=== PATIENT | female | born 1950 | race Caucasian/White ===

== ENCOUNTER 2016-05-19 10:19 | Observation (INO) ==
--- NOTE | 2016-05-19 11:19 | Emergency Department Note ---
Disposition Clinical Impression: Superior vena cava syndrome Disposition: Admitted As Inpatient Condition: Fair Referrals: Lew Carroll MD [Primary Care Provider] - Forms: ED Satisfaction Letter Time of Disposition: 15:38 SOB HPI - General Chief Complaint: ED Shortness of Breath/Dyspnea Stated Complaint: "Multiple complaints" Time Seen by Provider: 05/19/16 10:25 Source: patient Mode of arrival: ambulatory Limitations: no limitations Nursing Notes Reviewed: Yes Vital Signs Reviewed: Yes - History of Present Illness 65-year-old with stage IV small cell carcinoma lung comes in with increasing peripheral edema to her hands. Constipation. Context: recent travel - Related Data Home Medications Medication Instructions Recorded Confirmed Aspirin/Calcium Carbonate/Mag 325 mg PO DAILY 03/20/16 04/29/16 [Aspirin Buffered 325 mg Tab] Lisinopril [Zestril] 10 mg PO DAILY 03/20/16 04/29/16 Previous Rx's Medication Instructions Recorded Loperamide [Imodium] 2 cap PO AD #30 capsule 03/27/16 Magic Mouthwash 5 ml PO Q4H PRN #240 ml 03/27/16 Albuterol Sulfate [Albuterol 1 - 2 puff IH Q4H #1 inhaler 04/19/16 Inhaler] Bumetanide [Bumex] 0.5 mg PO DAILY #15 tablet 04/19/16 LORazepam [Ativan] 1 tab PO BID PRN #60 tablet 04/19/16 Ondansetron HCl [Zofran] 4 mg PO Q6HR PRN #20 tablet 04/19/16 Potassium Chloride 20 meq PO DAILY #30 tab.er.prt 04/19/16 Prochlorperazine Maleate 10 mg PO Q6HR PRN #30 tablet 04/19/16 [Compazine] TraZODone 50 mg PO HS #30 tablet 04/19/16 Zolpidem [Ambien] 5 mg PO HS PRN #30 tablet 04/19/16 Dexamethasone [Decadron] 1 tab PO BID #30 tablet 04/26/16 Acetaminophen [Tylenol] 1,000 mg PO Q6HR PRN #120 tablet 05/03/16 Ibuprofen [Motrin] 600 mg PO Q8HR PRN #90 tablet 05/03/16 Oxycodone HCl 5 mg PO Q6H PRN #20 capsule 05/03/16 Polyethylene Glycol 3350 [MiraLAX] 17 gm PO DAILY #30 powd.pack 05/03/16 Sennosides/Docusate Sodium [Senna 2 each PO BID #120 tablet 05/03/16 Plus] Na Phos,M-B/Na Phos,Di-Ba [Fleet 230 ml RC ONCE #1 enema 05/09/16 Enema Extra] Allergies Allergy/AdvReac Type Severity Reaction Status Date / Time Bee Pollen Allergy Anaphylaxis Verified 05/19/16 10:25 "some of these antibiotics." Allergy Anaphylaxis Uncoded 04/29/16 21:17 Past Medical History - Past Medical History Medical history: Reports: arthritis, asthma, cancer, COPD, diabetes, GERD, hyperlipidemia, hypertension, other Surgical history: Reports: , hysterectomy Psychiatric history: Reports: anxiety [employer] history: Reports: no [employer] history - Social History Smoking Status: Former smoker Smokeless Tobacco Status: No Alcohol use: Reports: none Drug use: Reports: none Physical Exam - General General appearance: alert Course - Consultations Consultation #1: Discussed with , admit. Time: 15:05 Consultation #2: Discussed with , admit. Time: 15:38 Vital Signs Temperature 98.4 F 05/19/16 10:20 Pulse Rate 107 05/19/16 10:20 Respiratory Rate 20 05/19/16 10:20 Blood Pressure 159/77 05/19/16 10:20 O2 Sat by Pulse Oximetry 98 05/19/16 10:20 Temperature 98.4 F 05/19/16 10:20 Pulse Rate 97 05/19/16 15:01 Respiratory Rate 16 05/19/16 15:01 Blood Pressure 133/73 05/19/16 15:01 O2 Sat by Pulse Oximetry 99 05/19/16 15:01 Oxygen Delivery Oxygen Delivery Nasal Cannula Shortness of Breath/Dyspnea - Lab Data Lab results reviewed: Yes I reviewed the patient's lab results. Result diagrams: 05/19/16 11:21 05/19/16 11:21 Lab Results 05/19/16 05/19/16 Range/Units 11:21 11:21 WBC 73.8 H* D (4.3-11.1) K/mcL RBC 3.25 L (3.82-4.97) M/mcL Hgb 9.7 L (11.5-15.4) g/dL Hct 29.5 L (35.3-44.9) % MCV 90.8 (83.0-100.0) fL MCH 29.8 (28.0-33.3) pg MCHC 32.9 (31.6-35.5) g/dL RDW 15.8 H (11.5-14.5) % Plt Count 403 H (140-400) K/mcL MPV 9.1 L (9.4-12.4) fL Immature Gran % Test Not Performed Seg Neutrophils % 88.0 % Band Neutrophils % 8.0 H (0-4) % Lymphocytes % 2.0 % Monocytes % 2.0 % Eosinophils % Test Not Performed Basophils % Test Not Performed Neutrophils # 70.9 H (1.6-8.9) K/mcL Lymphocytes # 1.5 (0.6-4.6) K/mcL Monocytes # 1.5 H (0.0-1.3) K/mcL Eosinophils # Test Not Performed Basophils # Test Not Performed Smudge Cells Present A (Not Present) Platelet Estimate Increased H (Normal) Sodium 139 (136-145) mEq/L Potassium 3.6 (3.5-4.5) mEq/L Chloride 96 L (98-109) mEq/L Carbon Dioxide 34 H (19-29) mEq/L BUN 19 (7-20) mg/dL Creatinine 0.57 (0.57-1.11) mg/dL Est GFR ( Amer) > 60 (> 60) Est GFR (Non-Af Amer) > 60 (> 60) BUN/Creatinine Ratio 33 H (6-26) Glucose 96 (70-99) mg/dL Calculated Osmolality 290 (280-300) Calcium 9.3 (8.6-10.8) mg/dL Total Bilirubin 0.5 (0.2-1.2) mg/dL Direct Bilirubin 0.2 (0.0-0.5) mg/dL Indirect Bilirubin 0.3 (0.0-1.2) mg/dL AST 16 (5-34) Units/L ALT 27 (0-55) Units/L Alkaline Phosphatase 130 H (38-126) Units/L Serum Total Protein 5.6 L (6.0-8.3) g/dL Albumin 2.7 L (3.5-5.0) g/dL Globulin 2.9 (2.4-3.5) g/dL Albumin/Globulin Ratio 0.9 L (1.1-2.2) Amylase 33 (25-125) Units/L Lipase 10 (8-78) Units/L - Radiology Data Radiology results reviewed: Yes I reviewed the patient's radiology results. Abdomen/Pelvis CT 05/19/16 11:14 IMPRESSION: 1. Unchanged mild rectal distention filled with stool can be seen in the setting of fecal impaction. 2. New small right pleural effusion. 3. Unchanged 3.2 cm indeterminate left adrenal mass concerning for metastasis 4. Unchanged right retrocrural farideh metastases 5. Unchanged bilateral breast skin thickening; correlate with direct inspection and mammography. D/ / Vargas Goncalves MD / Vargas Goncalves MD Interpreting Provider: Vargas Goncalves MD Head CT 05/19/16 11:14 IMPRESSION: 1. No definite acute intracranial abnormality. 2. A few nonspecific foci of hypoattenuation are seen within the supratentorial white matter, which could represent early chronic microvascular ischemic change. D/ / Michael Dye MD / Michael Dye MD Interpreting Provider: Michael Dye MD
[2016-05-19 11:29] LABS: Red Cell Distribution Width 15.8 % (11.5-14.5)
[2016-05-19 11:31] LABS: Hematocrit 29.5 % (35.3-44.9); Hemoglobin 9.7 g/dL (11.5-15.4); Mean Corpuscular HGB Conc 32.9 g/dL (31.6-35.5); Mean Corpuscular Hemoglobin 29.8 pg (28.0-33.3); Mean Corpuscular Volume 90.8 fL (83.0-100.0); Mean Platelet Volume 9.1 fL (9.4-12.4); Platelet Count 403 K/mcL (140-400); Red Blood Count 3.25 M/mcL (3.82-4.97)
[2016-05-19 11:41] LABS: Alanine Aminotransferase 27 Units/L (0-55); Albumin 2.7 g/dL (3.5-5.0); Albumin/Globulin Ratio 0.9 (1.1-2.2); Alkaline Phosphatase 130 Units/L (38-126); Amylase 33 Units/L (25-125); Aspartate Amino Transferase 16 Units/L (5-34); BUN/Creatinine Ratio 33 (6-26); Bilirubin,Direct 0.2 mg/dL (0.0-0.5); Bilirubin,Indirect 0.3 mg/dL (0.0-1.2); Bilirubin,Total 0.5 mg/dL (0.2-1.2); Blood Urea Nitrogen 19 mg/dL (7-20); Calcium 9.3 mg/dL (8.6-10.8); Carbon Dioxide 34 mEq/L (19-29); Chloride 96 mEq/L (98-109); Globulin 2.9 g/dL (2.4-3.5); Glucose 96 mg/dL (70-99); Lipase 10 Units/L (8-78); Osmolality,Calculated 290 (280-300); Potassium 3.6 mEq/L (3.5-4.5); Sodium 139 mEq/L (136-145); Total Protein 5.6 g/dL (6.0-8.3); eGFR For African Americans > 60 (> 60); eGFR For Non-African Americans > 60 (> 60)
[2016-05-19 11:55] LABS: Lymphocytes # 1.5 K/mcL (0.6-4.6); Monocytes # 1.5 K/mcL (0.0-1.3); Neutrophils # 70.9 K/mcL (1.6-8.9); Platelet Estimate Increased (Normal); Smudge Cells Present (Not Present)
[2016-05-19] MEDS ORDERED: Ondansetron 4 MG/2 ML VIAL IVP PRN (16:10)
[2016-05-19] MEDS ORDERED: Naloxone 0.4 MG/ML INJ IVP PRN (16:10)
[2016-05-19] MEDS ORDERED: Magic Mouthwash 10 ML UD Cup PO PRN (16:13)
[2016-05-19] MEDS ORDERED: *HR* Enoxaparin 40 MG/0.4 ML SYRINGE SQ ONE (16:16)
[2016-05-19] MEDS ORDERED: *HR* Dextrose 50 % in Water (Syg) 50 ML SYRINGE IVP PRN (16:40)
[2016-05-19] MEDS ORDERED: Dextrose Gel 15 GM PO PRN ×2 (16:40)
[2016-05-19] MEDS ORDERED: D5% in Water 1,000 ML IV PRN (16:40)
--- NOTE | 2016-05-19 16:42 | Internal Med History&Physical ---
Date of Encounter: 05/19/16 Time of Encounter: 16:00 Assessment and Plan (1) Superior vena cava syndrome Current visit: Yes Status: Acute Chronic, with acute exacerbation Based on chronicity, and no respiratory symptoms, patient already on steroids It is unlikely patient will need surgical intervention now However, will consult oncology for further recommendations (2) Anxiety Current visit: Yes Status: Chronic Resume home meds (3) Cancer associated pain Current visit: Yes Status: Chronic Resume home meds (4) Depression Current visit: Yes Status: Chronic Qualifiers: Depression Type: unspecified Qualified Code(s): F32.9 - Major depressive disorder, single episode, unspecified (5) Pleural effusion, right Current visit: Yes Status: Chronic Has pleuravac For drainage at least thrice weekly patient and spouse need to be educated prior to discharge as to how to drain poleuravac at home Continue supplemental O2 (6) Small cell carcinoma of right lung Current visit: Yes Status: Chronic (7) Type 2 diabetes mellitus Current visit: Yes Status: Chronic SSI, monitor FS Qualifiers: Diabetes mellitus complication status: with unspecified complications Diabetes mellitus intermediate insulin use: with rat 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 use Qualified Code(s) : E11.8 - Type 2 diabetes mellitus with unspecified complications; Z79.4 - medical terminologist (current) use of insulin (8) Fecal impaction Current visit: Yes Status: Acute s/p enema Resume Colace, miralax Add senna (9) Anemia Current visit: Yes Status: Chronic Qualifiers: Anemia type: unspecified type Qualified Code(s): D64.9 - Anemia, unspecified Internal Medicine - H&P: HPI Chief complaint: Shortness of breath, constipation Admitted From: Home Plans for Post Hospital Care: Home History of present illness: Ms. Guzman is a 65 year old female with Stage IV Small cell Lung CA with malignant pleural effusion s/p pleuravac, Chronic respiratory failure on home oxygen, L adrenal mets and SVC syndrome. She also has a PMH of DM, HTN, COPD, HLD She presents to ER in company of her fiancee and POA with multiple complains viz Shortness of breath since due to no VNS to help drain her Right pleuravac since . She denies cough, chest pain, increasing oxygen requirements. She also complains of Constipation for 8 days, no abdominal pain or distension, she is passing flatus, no change in appetite. She was wondering if her cancer has been treated enough to now have lung surgery. She is also anxious the cancer may have spread to her brain She denies worsening or new pain, she denies dizziness, new back pain or difficulty walking. She reports frequent falls recently. Last chemo and filgastrim was this week, she denies nausea or vomiting. She has POA who is at the bedside at the time of this review, alternate POA who is her sister and a living will. She reports she is DNR/DNI. She doesn't want chest compressions, or intubation. Partner will bring in her papers as soon as is feasible Past Med Surg Social Fam HX - Past Medical History Medical history: arthritis, asthma, cancer, COPD, diabetes, GERD, hyperlipidemia , hypertension, other Psychiatric history: anxiety - Past Surgical History Surgical History: , hysterectomy - Social History Smoking Status: Former smoker Smokeless Tobacco Status: No Alcohol use: none Drug use: none - Family History Mother Adopted: No Family Member Ethnicity: Non- Living Status: Hx Family Cardiac Disorders: No Hx Family Respiratory Disorders: No Hx Family Cancer: No Hx Family GI Disorders: No Hx Family Endocrine Disorder: No Hx Family Neuromuscular Disorders: No Hx Family Neurologic Disorders: No Hx Family HEENT Disorders: No Hx Family Autoimmune Disorders: No Internal Medicine - H&P: Meds Aspirin/Calcium Carbonate/Mag [Aspirin Buffered 325 mg Tab] 325 mg PO DAILY 01/25 [History] Lisinopril [Zestril] 10 mg PO DAILY 03/20/16 [History] Magic Mouthwash 5 ml PO Q4H PRN #240 ml 03/27/16 [Rx] Bumetanide [Bumex] 0.5 mg PO DAILY #15 tablet 04/19/16 [Rx] LORazepam [Ativan] 1 tab PO BID PRN #60 tablet 04/19/16 [Rx] Ondansetron HCl [Zofran] 4 mg PO Q6HR PRN #20 tablet 04/19/16 [Rx] Potassium Chloride 20 meq PO DAILY #30 tab.er.prt 04/19/16 [Rx] Prochlorperazine Maleate [Compazine] 10 mg PO Q6HR PRN #30 tablet 04/19/16 [Rx] TraZODone 50 mg PO HS #30 tablet 04/19/16 [Rx] Zolpidem [Ambien] 5 mg PO HS PRN #30 tablet 04/19/16 [Rx] Dexamethasone [Decadron] 1 tab PO BID #30 tablet 04/26/16 [Rx] Acetaminophen [Tylenol] 1,000 mg PO Q6HR PRN #120 tablet 05/03/16 [Rx] Ibuprofen [Motrin] 600 mg PO Q8HR PRN #90 tablet 05/03/16 [Rx] Oxycodone HCl 5 mg PO Q6H PRN #20 capsule 05/03/16 [Rx] Polyethylene Glycol 3350 [MiraLAX] 17 gm PO DAILY #30 powd.pack 05/03/16 [Rx] Na Phos,M-B/Na Phos,Di-Ba [Fleet Enema Extra] 230 ml RC ONCE #1 enema 05/09/16 [ Rx] Albuterol Sulfate [Albuterol Inhaler] 2 puff IH Q4H PRN 05/19/16 [History] Oxygen 2 l .ROUTE AD 05/19/16 [History] Allergies Bee Pollen Allergy (Verified 05/19/16 10:25) Anaphylaxis Penicillins Allergy (Verified 05/19/16 15:52) Hives All Systems PM: A 10-system review of systems was performed and is negative for pertinent findings except as documented above in the HPI. - Constitutional Constitutional: as per HPI - EENT Eyes: as per HPI Ears: as per HPI Nose, mouth and throat: as per HPI - Cardiovascular Cardiovascular ROS IM: as per HPI - Respiratory Respiratory: as per HPI - Gastrointestinal Gastrointestinal: as per HPI - Genitourinary Genitourinary: as per HPI - Musculoskeletal Musculoskeletal ROS IM: as per HPI - Integumentary Integumentary IM: as per HPI - Neurological Neurological ROS: as per HPI, no confusion, no convulsions, no focal weakness, no numbness, no tingling, no tremor(s) - Psychiatric Psychiatric: as per HPI - Hematologic/Lymphatic Hematologic/Lymphatic: as per HPI - Constitutional Vitals: Temp Pulse Resp BP Pulse Ox 98 F 98 16 137/69 95 05/19/16 16:29 05/19/16 16:29 05/19/16 16:29 05/19/16 16:29 05/19/16 16:29 General appearance: Present: A&O X 3, pleasant, no acute distress - Head Additional comments: Alopecia - Eye Eye exam: Present: PERRL, conjuntiva pink, sclera anicteric - ENT ENT exam: Present: mucous membranes moist - Neck Neck exam general surgery: Present: normal inspection - Respiratory Additional comments: Right lung with diminished breath sounds, chest wall veins distended. Left upper - Cardiovascular Cardiovascular exam: Present: RRR, +S1, +S2. Absent: rubs, systolic murmur, tachycardia - GI/Abdominal GI/Abdominal exam: Present: normal bowel sounds, soft, no peritoneal signs. Absent: mass, tenderness - Extremities Exam Additional comments: Left upper extremity pittin edema from left hand to upper arm, right upper extremity with mild swelling, not pitting. - Neurological Exam Neurological exam: Present: CN II-XII intact, oriented X3, no focal deficits. Absent: pronater drift, facial droop, speech deficit - Skin Skin exam: Present: dry, intact Internal Med - H&P Results - Labs CBC & Chem 7: 05/19/16 11:21 05/19/16 11:21
[2016-05-19] MEDS: *HR* OxyCODONE Immed Rel 5 MG TABLET PO PRN (16:56)
[2016-05-19] MEDS: Sennosides 8.6 MG TABLET PO SCH (20:38)
[2016-05-19] MEDS: traZODone 50 MG TABLET PO SCH (20:39)
[2016-05-19] MEDS: Insulin LISPRO 300 UNITS/3 ML VIAL SQ SCH (21:47)
[2016-05-20] MEDS: *HR* OxyCODONE Immed Rel 5 MG TABLET PO PRN ×3 (02:42→17:56)
[2016-05-20 03:31] LABS: Hematocrit 31.4 % (35.3-44.9); Hemoglobin 10.2 g/dL (11.5-15.4); Mean Corpuscular HGB Conc 32.5 g/dL (31.6-35.5); Mean Corpuscular Hemoglobin 29.6 pg (28.0-33.3); Mean Platelet Volume 9.3 fL (9.4-12.4); Platelet Count 436 K/mcL (140-400); Red Blood Count 3.45 M/mcL (3.82-4.97); Red Cell Distribution Width 15.7 % (11.5-14.5)
[2016-05-20 03:42] LABS: BUN/Creatinine Ratio 23 (6-26); Blood Urea Nitrogen 15 mg/dL (7-20); Calcium 9.3 mg/dL (8.6-10.8); Carbon Dioxide 32 mEq/L (19-29); Chloride 96 mEq/L (98-109); Glucose 164 mg/dL (70-99); Osmolality,Calculated 292 (280-300); Potassium 3.5 mEq/L (3.5-4.5); Sodium 139 mEq/L (136-145); eGFR For African Americans > 60 (> 60); eGFR For Non-African Americans > 60 (> 60)
[2016-05-20 03:48] LABS: Lymphocytes # 2.8 K/mcL (0.6-4.6); Monocytes # 1.4 K/mcL (0.0-1.3); Neutrophils # 65.7 K/mcL (1.6-8.9)
[2016-05-20 03:49] LABS: Platelet Estimate Increased (Normal); Reactive Lymphocytes Present (Not Present)
[2016-05-20] MEDS: *HR* Enoxaparin 40 MG/0.4 ML SYRINGE SQ SCH (05:03)
[2016-05-20] MEDS: *HR* LORazepam 1 MG TABLET PO PRN (06:26)
--- NOTE | 2016-05-20 08:09 | Oncology Inp Consult Note ---
Date of Encounter: 05/20/16 Time of Encounter: 07:41 - Data of Consult Patient: known to practice within the last 3 years Consult date: 05/20/16 Requesting Physician: Jose Manuel Phillip Primary Care Provider: Lew Carroll MD - Consult Narrative Reason for consult: Extensive stage small cell lung cancer. History of present illness: Ms. Guzman is a 65 year old woman who is known to oncology from ongoing management of extensive stage small cell lung cancer. She is followed by my partner Dr. Mart Kinney and was last seen in the office 04/22/16. I have summarized patient's heme/onc background below based on Dr. Kinney's most recent office report. History present illness Progressive shortness of breath for last 3 months. She developed hemoptysis and failed outpatient antibiotics. Was hospitalized 03/20/2016. CT angiogram chest 03/20/2016 showed a 7 x 9.4 x 9.6 cm and atelectasis of right upper lobe. Supraclavicular lymph node 1.7 cm and right paratracheal lymph node 2.2 cm. large right pleural effusion and she had a thoracentesis on 03/21/2016 400 mL effusion fluid drained It did show malignant cells Ki-67 more than 70% of eyes and focally positive She was intubated because of acute respiratory failure. Bronchoscopy 2015 showed atelectasis in the right upper lobe Endobronchial infiltrative ulcerated mass in the right upper lobe Bronchoscopy biopsy of the right upper lobe, subcarinal lymph node and right hilar mass while showed small cell carcinoma. Synaptophysin TTF-1 positive. OscarFocally positive. Ki-67 more than 70%. CK 7 and CK 5 and 6-negative After extubation she was on BiPAP till discharge. She was discharged to [facility] because of the BiPAP requirement X line currently she is able to breathe well with oxygen by nasal cannula which she does not need all the time First cycle of chemotherapy was given on an emergency basis as an inpatient. Cisplatin 60 mg/m day 1, etoposide 60 mg/m day one and 2 and 03/28/2016. When she tolerated it well. Uric acid low at 1.8. Renal function normal She is mildly neutropenic neutrophil count around 1000 on 04/14/2016. From cycle 2 will change etoposide to 3 days and give Neulasta day 4. Cycle 2 on 04/22/2016. Cisplatin 60 mg/m and etoposide increased to 80 mg/m. She finished etoposide and 1 cisplatin started she noticed increased shortness of breath We will complete staging with a CT abdomen and pelvis with contrast. Left adrenal showed 2.8 cm cyst with walker attenuation which could be benign Also MRI brain with and without contrast She has also been evaluated by Dr. Ellison radiation oncology and his most recent report can be reviewed from 05/08/16. Patient is currently hospitalized for generalized, multisystem symptoms including worsening right upper extremity swelling concerning for SVC syndrome based on most recent scan, severe anxiety with failure to thrive at home, cancer associated pain, constipation with fecal impaction. Oncology is consulted re: patient's underlying lung cancer. Patient seen and examined at bedside. She had reviewed for details of ongoing care I hospital team. Dr. Hadley with [facility] was kind enough to discuss patients visit me at time of initial presentation. I also spoken with her through the answering service. Rest of past medical, surgical, family, social history detailed below and verified with patient today. Review of systems: 12 point review of systems performed with patient and positive findings noted in history of present illness. All other systems are negative: Physical exam: Vital Signs Temp 98 F 05/19/16 16:29 Pulse 97 05/20/16 06:06 Resp 18 05/20/16 06:06 BP 146/90 05/20/16 06:06 Pulse Ox 97 05/20/16 06:06 GENERAL: * Alert and oriented, anxious appearing. * Mental Status: Affect appropriate for circumstances HEENT: * Sclerae anicteric. No mucositis or thrush. * No other oral or pharyngeal lesions or erythema. Skin: * No rashes or petechiae. * No evidence of skin malignancy Lymph nodes: * No cervical, supraclavicular, axillary, or inguinal adenopathy. Lungs: * Clear to auscultation bilaterally. * Clear to percussion bilaterally. Cardiovascular: * Regular rate and rhythm. * No gallops, murmurs, or rubs. Abdomen: * Soft, nontender; * No organomegaly or masses palpable. Extremities: * I do not appreciate any asymmetry between upper extremities on my exam. She evidently presented with a symmetrical left upper extremity edema. * No edema. No calf swelling or tenderness. * No joint deformity. Neurologic: * Alert, * normal gait; * no focal weakness or sensory abnormalities. Results: Laboratory Last Values WBC 69.9 K/mcL (4.3-11.1) H* 05/20/16 03:10 RBC 3.45 M/mcL (3.82-4.97) L 05/20/16 03:10 Hgb 10.2 g/dL (11.5-15.4) L 05/20/16 03:10 Hct 31.4 % (35.3-44.9) L 05/20/16 03:10 MCV 91.0 fL (83.0-100.0) 05/20/16 03:10 MCH 29.6 pg (28.0-33.3) 05/20/16 03:10 MCHC 32.5 g/dL (31.6-35.5) 05/20/16 03:10 RDW 15.7 % (11.5-14.5) H 05/20/16 03:10 Plt Count 436 K/mcL (140-400) H 05/20/16 03:10 MPV 9.3 fL (9.4-12.4) L 05/20/16 03:10 Immature Gran % Test Not Performed 05/19/16 11:21 Seg Neutrophils % 92.0 % 05/20/16 03:10 Band Neutrophils % 2.0 % (0-4) 05/20/16 03:10 Lymphocytes % 4.0 % 05/20/16 03:10 Monocytes % 2.0 % 05/20/16 03:10 Eosinophils % Test Not Performed 05/19/16 11:21 Basophils % Test Not Performed 05/19/16 11:21 Neutrophils # 65.7 K/mcL (1.6-8.9) H 05/20/16 03:10 Lymphocytes # 2.8 K/mcL (0.6-4.6) 05/20/16 03:10 Monocytes # 1.4 K/mcL (0.0-1.3) H 05/20/16 03:10 Eosinophils # Test Not Performed 05/19/16 11:21 Basophils # Test Not Performed 05/19/16 11:21 Reactive Lymphocytes Present (Not Present) A 05/20/16 03:10 Smudge Cells Present (Not Present) A 05/19/16 11:21 Platelet Estimate Increased (Normal) H 05/20/16 03:10 Immature Plt Fraction 3.0 % (1.1-6.1) 05/20/16 03:10 Sodium 139 mEq/L (136-145) 05/20/16 03:10 Potassium 3.5 mEq/L (3.5-4.5) 05/20/16 03:10 Chloride 96 mEq/L (98-109) L 05/20/16 03:10 Carbon Dioxide 32 mEq/L (19-29) H 05/20/16 03:10 BUN 15 mg/dL (7-20) 05/20/16 03:10 Creatinine 0.65 mg/dL (0.57-1.11) 05/20/16 03:10 Est GFR ( Amer) > 60 (> 60) 05/20/16 03:10 Est GFR (Non-Af Amer) > 60 (> 60) 05/20/16 03:10 BUN/Creatinine Ratio 23 (6-26) 05/20/16 03:10 Glucose 164 mg/dL (70-99) H 05/20/16 03:10 POC Glucose 117 (58-89) H 05/19/16 21:44 Calculated Osmolality 292 (280-300) 05/20/16 03:10 Calcium 9.3 mg/dL (8.6-10.8) 05/20/16 03:10 Total Bilirubin 0.5 mg/dL (0.2-1.2) 05/19/16 11:21 Direct Bilirubin 0.2 mg/dL (0.0-0.5) 05/19/16 11:21 Indirect Bilirubin 0.3 mg/dL (0.0-1.2) 05/19/16 11:21 AST 16 Units/L (5-34) 05/19/16 11:21 ALT 27 Units/L (0-55) 05/19/16 11:21 Alkaline Phosphatase 130 Units/L (38-126) H 05/19/16 11:21 Serum Total Protein 5.6 g/dL (6.0-8.3) L 05/19/16 11:21 Albumin 2.7 g/dL (3.5-5.0) L 05/19/16 11:21 Globulin 2.9 g/dL (2.4-3.5) 05/19/16 11:21 Albumin/Globulin Ratio 0.9 (1.1-2.2) L 05/19/16 11:21 Amylase 33 Units/L (25-125) 05/19/16 11:21 Lipase 10 Units/L (8-78) 05/19/16 11:21 Radiographic studies: I personally reviewed and interpreted patient's most recent imaging studies dated 05/19/16. I discussed the findings with the patient today. Abdomen/Pelvis CT 05/19/16 11:14 IMPRESSION: 1. Unchanged mild rectal distention filled with stool can be seen in the setting of fecal impaction. 2. New small right pleural effusion. 3. Unchanged 3.2 cm indeterminate left adrenal mass concerning for metastasis 4. Unchanged right retrocrural farideh metastases 5. Unchanged bilateral breast skin thickening; correlate with direct inspection and mammography. D/ / Vargas Goncalves MD / Vargas Goncalves MD Interpreting Provider: Vargas Goncalves MD Head CT 05/19/16 11:14 IMPRESSION: 1. No definite acute intracranial abnormality. 2. A few nonspecific foci of hypoattenuation are seen within the supratentorial white matter, which could represent early chronic microvascular ischemic change. D/ / Michael Dye MD / Michael Dye MD Interpreting Provider: Michael Dye MD Chest CT 05/19/16 13:53 IMPRESSION: Large infiltrative mass in the right perihilar region extending into superior mediastinum with significant stenosis of the SVC. The SVC stenosis appears similar to the prior examination, however functionally it may be worsened due to the presence of the port catheter. Overall, size of the mass is unchanged from prior examination. Additional mediastinal and neck nodes are compatible with metastatic disease, unchanged. Pleural nodularity in the right hemithorax, compatible with metastatic disease, unchanged. Small moderate right pleural effusion with chest tube in place. Left adrenal nodule, concerning for metastatic disease. Findings were discussed with Dr. Isidoro Hadley at 3:01 pm on 05/19/2016. D/ / Kian Covarrubias MD / Kian Covarrubias MD Interpreting Provider: Kian Covarrubias MD Impression/recommendations: Extensive stage small cell lung cancer: Completed 2 cycles of combination chemotherapy. Most recent scan is compatible with treatment response compared to scan from 03/20/16 and at initial diagnosis. She is encouraged ongoing response to treatment and wants to continue treatment if possible. Suspected SVC syndrome: On my independent review of her scans, I do not appreciate any major difference between I do not appreciate any significant difference versus CT angiogram from 04/22/16. She had distended vessels back pain as well with extensive collateralization. Admittedly, [id number] is new since previous scan. Given the apparent improvement in upper extremity swelling based on my exam today cannot treat her presentation yesterday was on the basis of SVC syndrome. It is lingering concern about SVC syndrome, it may be worthwhile to obtain bilateral upper extremity Doppler for further evaluation. Repeat CT angiogram will directly compare her current scans to scan from . I agree with documentation by Dr. Daley that there is no indication for surgical intervention at this time. Additionally, risk for thrombosis appears minimal less as a catheter-related clot. No indication for additional tumor prophylaxis beyond routine DVT prophylaxis for hospitalization Severe anxiety: She is on when necessary Ativan in addition to her home dose of trazodone. Recommend increasing trazodone dose for optimal symptom control. Constipation with fecal impaction: Likely due to appears that she is taking for cancer associated pain. If conservation remains an issue despite ongoing measures, consider Relistor for opioid-induced constipation. We'll follow the patient along side you during this hospitalization but please do not hesitate to call regarding interval hematologic questions as they arise. Thank you for your excellent ongoing care for allowing us to see her while in- house. This report was created using voice recognition software and may contain errors. It was signed but not edited to expedite communication. Past Med Surg Social Fam HX - Past Medical History Medical history: arthritis, asthma, cancer, COPD, diabetes, GERD, hyperlipidemia , hypertension, other Psychiatric history: anxiety - Past Surgical History Surgical History: , hysterectomy - Social History Smoking Status: Former smoker Smokeless Tobacco Status: No Alcohol use: none Drug use: none - Family History Mother Adopted: No Family Member Ethnicity: Non- Living Status: Hx Family Cardiac Disorders: No Hx Family Respiratory Disorders: No Hx Family Cancer: No Hx Family GI Disorders: No Hx Family Endocrine Disorder: No Hx Family Neuromuscular Disorders: No Hx Family Neurologic Disorders: No Hx Family HEENT Disorders: No Hx Family Autoimmune Disorders: No Medications and Allergies Aspirin/Calcium Carbonate/Mag [Aspirin Buffered 325 mg Tab] 325 mg PO DAILY 01/25 [History] Lisinopril [Zestril] 10 mg PO DAILY 03/20/16 [History] Magic Mouthwash 5 ml PO Q4H PRN #240 ml 03/27/16 [Rx] Bumetanide [Bumex] 0.5 mg PO DAILY #15 tablet 04/19/16 [Rx] LORazepam [Ativan] 1 tab PO BID PRN #60 tablet 04/19/16 [Rx] Ondansetron HCl [Zofran] 4 mg PO Q6HR PRN #20 tablet 04/19/16 [Rx] Potassium Chloride 20 meq PO DAILY #30 tab.er.prt 04/19/16 [Rx] Prochlorperazine Maleate [Compazine] 10 mg PO Q6HR PRN #30 tablet 04/19/16 [Rx] TraZODone 50 mg PO HS #30 tablet 04/19/16 [Rx] Zolpidem [Ambien] 5 mg PO HS PRN #30 tablet 04/19/16 [Rx] Dexamethasone [Decadron] 1 tab PO BID #30 tablet 04/26/16 [Rx] Acetaminophen [Tylenol] 1,000 mg PO Q6HR PRN #120 tablet 05/03/16 [Rx] Ibuprofen [Motrin] 600 mg PO Q8HR PRN #90 tablet 05/03/16 [Rx] Oxycodone HCl 5 mg PO Q6H PRN #20 capsule 05/03/16 [Rx] Polyethylene Glycol 3350 [MiraLAX] 17 gm PO DAILY #30 powd.pack 05/03/16 [Rx] Na Phos,M-B/Na Phos,Di-Ba [Fleet Enema Extra] 230 ml RC ONCE #1 enema 05/09/16 [ Rx] Albuterol Sulfate [Albuterol Inhaler] 2 puff IH Q4H PRN 05/19/16 [History] Oxygen 2 l .ROUTE AD 05/19/16 [History] Allergies Bee Pollen Allergy (Verified 05/19/16 10:25) Anaphylaxis Penicillins Allergy (Verified 05/19/16 15:52) Hives Oncology - Exam - Constitutional Vitals: Temp Pulse Resp BP Pulse Ox 98 F 97 18 146/90 97 05/19/16 16:29 05/20/16 06:06 05/20/16 06:06 05/20/16 06:06 05/20/16 06:06 Oncology - Results - Labs Labs: Short CBC 05/20/16 Range/Units 03:10 WBC 69.9 H* (4.3-11.1) K/mcL Hgb 10.2 L (11.5-15.4) g/dL Hct 31.4 L (35.3-44.9) % Plt Count 436 H (140-400) K/mcL Neutrophils # 65.7 H (1.6-8.9) K/mcL BMP 05/20/16 03:10 Sodium 139 Potassium 3.5 Chloride 96 L Carbon Dioxide 32 H BUN 15 Creatinine 0.65 Glucose 164 H Calcium 9.3 Consult Discharge Plan - Plan Referrals: Lew Carroll MD [Primary Care Provider] -
[2016-05-20] MEDS: Bumetanide 1 MG TABLET PO SCH (09:14)
[2016-05-20] MEDS: Insulin LISPRO 300 UNITS/3 ML VIAL SQ SCH ×4 (09:17→21:49)
--- NOTE | 2016-05-20 10:00 | Internal Med Progress Note ---
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 Per oncology no indication for additional tumor prophylaxis beyond routine DVT prophylaxis for hospitalization (2) Fecal impaction Current Visit: Yes Status: Acute Assessment and plan: Continues to have no bowel movement, however is with flatus Add Mild and Molasses enema and Relistor started (3) Anxiety Current Visit: Yes Status: Chronic Assessment and plan: Ativan prn in addition to home dose of trazodone (4) Cancer associated pain Current Visit: Yes Status: Chronic Assessment and plan: Continue with pain control (5) Depression Current Visit: Yes Status: Chronic Assessment and plan: Consult to pastoral services ordered Qualifiers: Depression Type: unspecified Qualified Code(s): F32.9 - Major depressive disorder, single episode, unspecified (6) Pleural effusion, right Current Visit: Yes Status: Chronic Assessment and plan: Has pleuravac for drainage Pt and spouse need to be educated prior to discharge as to how to drain pleuravac at home Continue supplemental O2 (7) Small cell carcinoma of right lung Current Visit: Yes Status: Chronic Assessment and plan: Management by [facility] Oncology consulted for recommendations (8) Type 2 diabetes mellitus Current Visit: Yes Status: Chronic Assessment and plan: SSI during hospital stay Continue to monitor Qualifiers: Diabetes mellitus complication status: with unspecified complications Diabetes mellitus intermediate manager insulin use: with intermediate manager use Qualified Code(s) : E11.8 - Type 2 diabetes mellitus with unspecified complications; Z79.4 - FPC (current) use of insulin (9) Anemia Current Visit: Yes Status: Chronic Assessment and plan: Hgb: 10.2 today (9.7 yesterday) Continue to monitor Qualifiers: Anemia type: unspecified type Qualified Code(s): D64.9 - Anemia, unspecified (10) DVT prophylaxis Current Visit: No Status: Acute Assessment and plan: Lovenox 40mg SQ - Subjective Interval history: Pt complaining of pain in her rectal area which she reports is secondary to fecal impaction. She admits to similar episodes of fecal impaction, some lasting as long as 22 days. She continues to have flatus at this time. Pt states that she is feeling very anxious about her illness. She denies feeing increased shortness of breath, chest pain, nausea or vomiting at this time. - Constitutional Vitals: Temp Pulse Resp BP Pulse Ox 97.5 F L 98 15 133/59 98 05/20/16 07:51 05/20/16 07:51 05/20/16 07:51 05/20/16 07:51 05/20/16 07:51 General appearance: Present: A&O X 3, pleasant, no acute distress - Head Additional comments: Alopecia - Eye Eye exam: Present: PERRL, conjuntiva pink, sclera anicteric - ENT ENT exam: Present: mucous membranes moist - Neck Neck exam general surgery: Present: supple, trachea midline - Respiratory Respiratory exam: Present: CTAB Additional comments: Chest wall veins distended - Cardiovascular Cardiovascular exam: Present: RRR, +S1, +S2 - GI/Abdominal GI/Abdominal exam: Present: normal bowel sounds, soft. Absent: guarding, rebound, rigid, tenderness - Extremities Exam Extremities exam: Absent: calf tenderness, cyanotic, pedal edema Additional comments: No upper extremity edema noticed - Neurological Exam Neurological exam: Present: alert, CN II-XII intact, oriented X3, no focal deficits - Skin Skin exam: Present: dry, intact Internal Medicine: Result - Labs CBC & Chem 7: 05/20/16 03:10 05/20/16 03:10 Labs: Short CBC 05/20/16 Range/Units 03:10 WBC 69.9 H* (4.3-11.1) K/mcL Hgb 10.2 L (11.5-15.4) g/dL Hct 31.4 L (35.3-44.9) % Plt Count 436 H (140-400) K/mcL Neutrophils # 65.7 H (1.6-8.9) K/mcL BMP 05/20/16 03:10 Sodium 139 Potassium 3.5 Chloride 96 L Carbon Dioxide 32 H BUN 15 Creatinine 0.65 Glucose 164 H Calcium 9.3 Consult Discharge Plan - Plan Referrals: Lew Carroll MD [Primary Care Provider] - <Jose Manuel Phillip R - Last Filed: 05/20/16 17:45> Date of Encounter: 05/20/16 - Constitutional Vitals: Temp Pulse Resp BP Pulse Ox 98.0 F 97 16 125/58 98 05/20/16 15:00 05/20/16 15:00 05/20/16 15:00 05/20/16 11:00 05/20/16 15:00 Internal Medicine: Result - Labs CBC & Chem 7: 05/20/16 03:10 05/20/16 03:10 Labs: Short CBC 05/20/16 Range/Units 03:10 WBC 69.9 H* (4.3-11.1) K/mcL Hgb 10.2 L (11.5-15.4) g/dL Hct 31.4 L (35.3-44.9) % Plt Count 436 H (140-400) K/mcL Neutrophils # 65.7 H (1.6-8.9) K/mcL BMP 05/20/16 03:10 Sodium 139 Potassium 3.5 Chloride 96 L Carbon Dioxide 32 H BUN 15 Creatinine 0.65 Glucose 164 H Calcium 9.3 - Attending Attestation I examined this patient and my medical decision-making was reviewed with the PRODUCTION SORTER/PA/Advanced Practice Nurse/Resident Physician. I agree with the documented findings, disposition and treatment plan as described except to the extent set forth below. . Admitted due to shortness of breath, patient with history of stage IV lung cancer with recurrent pleural effusion. Admitted due to possible superior vena cava syndrome. Evaluated by Dr. Matt, from oncology. No surgical intervention, no anticoagulation. A repeat venous Doppler has been ordered. Patient with opiate-induced constipation, methylnaltrexone has been ordered.
[2016-05-20] MEDS ORDERED: Milk and Molasses Enema 200 ML RC ONE (10:45)
[2016-05-20] MEDS ORDERED: Methylnaltrexone 12 MG/0.6 ML SYRINGE SQ ONE (10:48)
[2016-05-20] MEDS: Sennosides 8.6 MG TABLET PO SCH (21:44)
[2016-05-20] MEDS: traZODone 50 MG TABLET PO SCH (21:44)
[2016-05-21] MEDS: *HR* OxyCODONE Immed Rel 5 MG TABLET PO PRN ×3 (00:15→23:42)
[2016-05-21 06:03] LABS: Hematocrit 28.6 % (35.3-44.9); Hemoglobin 9.3 g/dL (11.5-15.4); Mean Corpuscular HGB Conc 32.5 g/dL (31.6-35.5); Mean Corpuscular Hemoglobin 29.5 pg (28.0-33.3); Mean Corpuscular Volume 90.8 fL (83.0-100.0); Mean Platelet Volume 9.4 fL (9.4-12.4); Platelet Count 289 K/mcL (140-400); Red Blood Count 3.15 M/mcL (3.82-4.97); Red Cell Distribution Width 15.7 % (11.5-14.5)
[2016-05-21 06:09] LABS: BUN/Creatinine Ratio 30 (6-26); Blood Urea Nitrogen 16 mg/dL (7-20); Calcium 8.8 mg/dL (8.6-10.8); Carbon Dioxide 32 mEq/L (19-29); Chloride 96 mEq/L (98-109); Glucose 93 mg/dL (70-99); Osmolality,Calculated 287 (280-300); Potassium 3.6 mEq/L (3.5-4.5); Sodium 138 mEq/L (136-145); eGFR For African Americans > 60 (> 60); eGFR For Non-African Americans > 60 (> 60)
[2016-05-21 06:33] LABS: Lymphocytes # 2.4 K/mcL (0.6-4.6); Monocytes # 2.9 K/mcL (0.0-1.3); Neutrophils # 18.9 K/mcL (1.6-8.9)
[2016-05-21 06:34] LABS: Platelet Estimate Normal (Normal); Toxic Granulation Present (Not Present); Toxic Vacuolation Present (Not Present)
[2016-05-21] MEDS: *HR* Enoxaparin 40 MG/0.4 ML SYRINGE SQ SCH (06:39)
[2016-05-21] MEDS: Insulin LISPRO 300 UNITS/3 ML VIAL SQ SCH ×4 (08:37→20:07)
[2016-05-21] MEDS: Bumetanide 1 MG TABLET PO SCH (09:32)
--- NOTE | 2016-05-21 09:38 | Venous Imaging Report ---
UE Venous Duplex Patient Name:Nova Guzman Order Number:[id number] Procedure Date:05/20/2016 Date:1950Age:65 yrs Gender:Female Location:[facility] Room #: [id number] Rail Layer:Kacy Thrasher Referring MD:Sofy Sousa DO net development manager:None Reading MD:Vincenzo Jo MD Primary Indications:Upper extremity swelling, cancer Secondary Indications: Risk Factors Yes/No Anticoagulants Yes Hx of Chemotherapy Yes Impressions: Normal bilateral upper extremity deep and superficial venous exam. Recommendations: After imaging the patient returned to their room. Findings Venous Duplex Results: Right: Venous imaging of the upper extremity reveals full patency and normal vessel compressibility of the right jugular, right subclavian, right axillary, right brachial, right cephalic, right basilic, right radial and right ulnar. Doppler signals in the evaluated veins were normal. Left: Venous imaging of the upper extremity reveals full patency and normal vessel compressibility of the left jugular, left subclavian, left axillary, left brachial, left cephalic, left basilic, left radial and left ulnar. Doppler signals in the evaluated veins were normal. Prior Study: No prior study available for comparison. Upper Extremity Venous Duplex Side Vein Compress Spontaneous Flow Augment Right Jugular Normal Yes Phasic Yes Right Subclavian Normal Yes Phasic Yes Right Axillary Normal Yes Phasic Yes Right Brachial Normal Yes Phasic Yes Right Cephalic Normal Yes Phasic Yes Right Basilic Normal Yes Phasic Yes Right Radial Normal Yes Phasic Yes Right Ulnar Normal Yes Phasic Yes Left Jugular Normal Yes Phasic Yes Left Subclavian Normal Yes Phasic Yes Left Axillary Normal Yes Phasic Yes Left Brachial Normal Yes Phasic Yes Left Cephalic Normal Yes Phasic Yes Left Basilic Normal Yes Phasic Yes Left Radial Normal Yes Phasic Yes Left Ulnar Normal Yes Phasic Yes Updated by Vincenzo Jo MD on 05/21/2016 9:34:18 AM electronically signed on 05/21/2016 9:34:28 AM with status of Final
[2016-05-21] MEDS ORDERED: Milk and Molasses Enema 200 ML RC PRN (11:55)
[2016-05-21] MEDS ORDERED: Nicotine 14 MG PATCH.TD24 TD PRN (11:57)
--- NOTE | 2016-05-21 12:01 | Internal Med Progress Note ---
Date of Encounter: 05/21/16 Time of Encounter: 11:58 - Assessment and plan (1) Fecal impaction Current Visit: Yes Status: Acute (2) Superior vena cava syndrome Current Visit: Yes Status: Acute (3) Cancer associated pain Current Visit: Yes Status: Chronic (4) Pleural effusion, right Current Visit: Yes Status: Chronic (5) Small cell carcinoma of right lung Current Visit: Yes Status: Chronic Assessment and plan: Respiratory status improved, s/p drainage of pleuravac, continue to monitor. b/l upper ext doppler neg for DVT severe constipation, continue prn enema continue analgesics. severe leukocytosis, continue to monitor labs anticipate discharge to rehab in 1-2 days. - Subjective Interval history: f/u for shortness of breath, pt reports improvement. - Constitutional Vitals: Temp Pulse Resp BP Pulse Ox 99.1 F 104 21 108/51 96 05/21/16 11:02 05/21/16 11:02 05/21/16 11:02 05/21/16 11:02 05/21/16 06:53 General appearance: Present: A&O X 3, pleasant, no acute distress - Head Head exam: Present: atraumatic, normocephalic - Eye Eye exam: Present: PERRL, conjuntiva pink, sclera anicteric Pupils: Present: PERRL - Neck Neck exam general surgery: Present: supple, trachea midline. Absent: lymphadenopathy - Respiratory Respiratory exam: Present: CTAB. Absent: accessory muscle use, rales, rhonchi, wheezes - Cardiovascular Cardiovascular exam: Present: RRR, +S1, +S2. Absent: diastolic murmur, gallop, rubs, systolic murmur Additional comments: right posterior chest wall drain clean and intact. - GI/Abdominal GI/Abdominal exam: Present: normal bowel sounds, soft, no peritoneal signs. Absent: distended, tenderness - Extremities Exam Extremities exam: Present: warm, radial pulses palpable and symetrical. Absent : calf tenderness, cyanotic, pedal edema - Neurological Exam Neurological exam: Present: CN II-XII intact, oriented X3, no focal deficits. Absent: pronater drift, facial droop, speech deficit - Skin Skin exam: Present: dry, intact Internal Medicine: Result - Labs CBC & Chem 7: 05/21/16 05:11 05/21/16 05:11 Labs: Short CBC 01/10/17 Range/Units 05:11 WBC 24.2 H D (4.3-11.1) K/mcL Hgb 9.3 L (11.5-15.4) g/dL Hct 28.6 L (35.3-44.9) % Plt Count 289 (140-400) K/mcL Neutrophils # 18.9 H (1.6-8.9) K/mcL BMP 05/21/16 05:11 Sodium 138 Potassium 3.6 Chloride 96 L Carbon Dioxide 32 H BUN 16 Creatinine 0.53 L Glucose 93 Calcium 8.8 Consult Discharge Plan - Plan Referrals: Lew Carroll MD [Primary Care Provider] -
[2016-05-21] MEDS: *HR* LORazepam 1 MG TABLET PO PRN (12:52)
--- NOTE | 2016-05-21 16:31 | Oncology Inp Progress Note ---
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 Was felt that if the Doppler study was negative continued anti-Coagulation is not needed. This was discussed with Dr. Matt. 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 It seems as though her pain is controlled with her current regimen. Oncology: Subj Interval history: Patient was drowsy during visit. She does state that she is feeling some better. States she is breathing better since fluid was drained yesterday through the Pleurx catheter. She states the swelling in her arm is improving but she continues to have discomfort in her hand. She did not recall if she had a bowel movement. States that her current pain medication is controlling her pain fairly well. Appetite remains decreased. - Constitutional Vitals: Vital Signs Temp Pulse Resp BP Pulse Ox 05/21/16 11:02 99.1 F 104 21 108/51 05/21/16 06:53 97.5 F L 98 19 112/63 96 05/21/16 04:56 97.7 F 84 16 111/58 97 05/21/16 00:42 96 17 112/63 97 05/20/16 19:29 98 F 97 17 109/69 99 Intake and Output 05/21/16 05/21/16 05/21/16 07:59 15:59 23:59 Intake Total 600 / 600 Output Total 350 / 350 Balance 250 / 250 Intake: Oral 600 / 600 Output: Urine 350 / 350 Other: Meal Lunch Percent of Meal Consumed 50% Weight 65.1 kg Blood Glucose* 100 92 Patient Weight 05/21/16 23:59 Weight 65.1 kg General appearance: cooperative, obese - Respiratory Respiratory exam: Present: decreased breath sounds (Right lung, Pleurx in place. left lung clear rhonchi or wheezeswheezes) - Cardiovascular Cardiovascular exam: Present: RRR - GI/Abdominal GI/Abdominal exam: Present: normal bowel sounds, soft - Extremities Exam Extremities exam: Present: normal capillary refill (Pulses intact no obvious edema), normal inspection Oncology: Obj Data - Labs CBC & Chem 7: 05/21/16 05:11 05/21/16 05:11 Labs: Laboratory Results - last 24 hr 05/20/16 05/20/16 05/20/16 07:55 11:29 16:32 WBC RBC Hgb Hct MCV MCH MCHC RDW Plt Count MPV Seg Neutrophils % Band Neutrophils % Lymphocytes % Monocytes % Neutrophils # Lymphocytes # Monocytes # Toxic Granulation Toxic Vacuolation Platelet Estimate Sodium Potassium Chloride Carbon Dioxide BUN Creatinine Est GFR ( Amer) Est GFR (Non-Af Amer) BUN/Creatinine Ratio Glucose POC Glucose 93 H 118 H 108 H Calculated Osmolality Calcium 05/20/16 05/21/16 05/21/16 21:26 05:11 05:11 WBC 24.2 H D RBC 3.15 L Hgb 9.3 L Hct 28.6 L MCV 90.8 MCH 29.5 MCHC 32.5 RDW 15.7 H Plt Count 289 MPV 9.4 Seg Neutrophils % 60.0 Band Neutrophils % 18.0 H Lymphocytes % 10.0 Monocytes % 12.0 Neutrophils # 18.9 H Lymphocytes # 2.4 Monocytes # 2.9 H Toxic Granulation Present A Toxic Vacuolation Present A Platelet Estimate Normal Sodium 138 Potassium 3.6 Chloride 96 L Carbon Dioxide 32 H BUN 16 Creatinine 0.53 L Est GFR ( Amer) > 60 Est GFR (Non-Af Amer) > 60 BUN/Creatinine Ratio 30 H Glucose 93 POC Glucose 98 H Calculated Osmolality 287 Calcium 8.8 Leukocytosis slowly improving. He does remain on steroids. Consult Discharge Plan - Plan Additional Instructions: She will need follow-up with Dr. Mart Kinney at the cancer center. Referrals: Lew Carroll MD [Primary Care Provider] - Mart Kinney MD [Partnered Physician] - 05/28/16 2:50 pm Attestation: My signature below is to certify that this patient is under my care and that I, or nurse practitioner, or a physician's engineering inspection assistant working with me, has a face-to -face encounter with this patient. <Akshat Matt - Last Filed: 05/22/16 15:25> Date of Encounter: 05/21/16 Oncology: Subj Interval history: I saw and personally examined Ms. Guzman at her bedside today and reviewed the chart for details of ongoing care by hospital team. I verified/agree with the history and physical exam findings documented by Alisa Sesay CNP above. Oncology is following for previously diagnosed extensive stage small cell lung cancer which is currently undergoing active treatment. Supplies to suspicion of superior vena cava syndrome. Presented with generalized multisystem symptoms including uncontrolled cancer associated pain, constipation with fecal impaction, failure to thrive at home. Doing much better today. Anxiety under much better control. Pain is controlled with current regimen. Patient reports that her bowels are anastomosis as meditation. She's maintaining stable vital signs. Systems exam as documented above. Bilateral upper extremity Doppler negative for DVT and upper extremity swelling appears to have improved significantly since last evaluation. Small cell lung cancer: Established with Dr. Kinney medical oncology and Dr. Ellison radiation oncology. She's currently undergoing combination chemotherapy and plan is to continue concurrent chemoradiation in the near future. She was scheduled to start cycle 2 of chemotherapy at beginning of this week but treatment is on hold due to current has meditation. Plan will be to resume treatment as she is medically optimal. 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 Appears to be improving based on most recent scans and clinical exam. Bilateral upper extremity Doppler negative for DVT. Upper extremity swelling steadily improving. No acute intervention needed. No indication for anticoagulate in at this time. Constipation: Likely opioid induced. Has not had a bowel movement despite enemas and aggressive bowel regimen. Recommend Relistor 12 M subcutaneous 1 for opioid-induced constipation. Can repeat every other day as needed for constipation. Will follow patient along with you during this hospitalization. Once she is medically optimal for discharge, we'll arrange for outpatient follow -up with Dr. Kinney for evaluation prior to resuming chemotherapy. Thanks for involving us in her care during his hospital admission. - Constitutional Vitals: Vital Signs Temp Pulse Resp BP Pulse Ox 05/22/16 13:54 98.0 F 102 20 107/56 96 05/22/16 07:48 98.2 F 94 20 108/62 95 05/22/16 05:55 101 16 121/62 96 05/21/16 21:37 94 17 105/58 96 05/21/16 20:20 99 05/21/16 16:26 98.3 F 103 17 104/54 99 Intake and Output 05/22/16 05/22/16 05/22/16 00:59 08:59 16:59 Intake Total 0 / 0 0 / 0 720 / 720 Output Total 0 / 0 0 / 0 0 / 0 Balance 0 / 0 0 / 0 720 / 720 Intake: Oral 0 / 0 0 / 0 720 / 720 Output: Urine 0 / 0 0 / 0 0 / 0 Other: Meal Dinner Lunch Percent of Meal Consumed 10% 80% # Voids 1 Blood Glucose* 108 92 88 Oncology: Obj Data - Labs CBC & Chem 7: 05/22/16 05:36 05/22/16 05:36 Labs: Laboratory Results - last 24 hr 05/21/16 05/21/16 05/21/16 05:15 06:52 11:01 WBC RBC Hgb Hct MCV MCH MCHC RDW Plt Count MPV Seg Neutrophils % Band Neutrophils % Lymphocytes % Monocytes % Neutrophils # Lymphocytes # Monocytes # Reactive Lymphocytes Toxic Granulation Dohle Bodies Platelet Estimate Large Platelets Sodium Potassium Chloride Carbon Dioxide BUN Creatinine Est GFR ( Amer) Est GFR (Non-Af Amer) BUN/Creatinine Ratio Glucose POC Glucose 100 H 173 H 92 H Calculated Osmolality Calcium 05/21/16 05/22/16 05/22/16 16:24 05:36 05:36 WBC 8.9 D RBC 3.50 L Hgb 10.2 L Hct 31.6 L MCV 90.3 MCH 29.1 MCHC 32.3 RDW 15.6 H Plt Count 264 MPV 9.7 Seg Neutrophils % 68.0 Band Neutrophils % 4.0 Lymphocytes % 22.0 Monocytes % 6.0 Neutrophils # 6.4 Lymphocytes # 2.0 Monocytes # 0.5 Reactive Lymphocytes Present A Toxic Granulation Present A Dohle Bodies Present A Platelet Estimate Normal Large Platelets Present A Sodium 140 Potassium 3.8 Chloride 95 L Carbon Dioxide 36 H BUN 19 Creatinine 0.57 Est GFR ( Amer) > 60 Est GFR (Non-Af Amer) > 60 BUN/Creatinine Ratio 33 H Glucose 91 POC Glucose 87 Calculated Osmolality 292 Calcium 9.1 Attestation: My signature below is to certify that this patient is under my care and that I, or nurse practitioner, or a physician's engineering inspection assistant working with me, has a face-to -face encounter with this patient.
[2016-05-21] MEDS: traZODone 50 MG TABLET PO SCH (19:50)
[2016-05-21] MEDS: Sennosides 8.6 MG TABLET PO SCH (19:51)
[2016-05-21] MEDS: Hydrocortisone Rectal 2.5% CRM 28 GM TUBE RC PRN (19:54)
[2016-05-22 06:05] LABS: Hematocrit 31.6 % (35.3-44.9); Hemoglobin 10.2 g/dL (11.5-15.4); Mean Corpuscular HGB Conc 32.3 g/dL (31.6-35.5); Mean Corpuscular Hemoglobin 29.1 pg (28.0-33.3); Mean Corpuscular Volume 90.3 fL (83.0-100.0); Mean Platelet Volume 9.7 fL (9.4-12.4); Platelet Count 264 K/mcL (140-400); Red Cell Distribution Width 15.6 % (11.5-14.5)
[2016-05-22] MEDS: *HR* Enoxaparin 40 MG/0.4 ML SYRINGE SQ SCH (06:05)
[2016-05-22 06:18] LABS: BUN/Creatinine Ratio 33 (6-26); Blood Urea Nitrogen 19 mg/dL (7-20); Calcium 9.1 mg/dL (8.6-10.8); Carbon Dioxide 36 mEq/L (19-29); Chloride 95 mEq/L (98-109); Glucose 91 mg/dL (70-99); Osmolality,Calculated 292 (280-300); Potassium 3.8 mEq/L (3.5-4.5); Sodium 140 mEq/L (136-145); eGFR For African Americans > 60 (> 60); eGFR For Non-African Americans > 60 (> 60)
[2016-05-22 06:28] LABS: Dohle Bodies Present (Not Present); Monocytes # 0.5 K/mcL (0.0-1.3); Neutrophils # 6.4 K/mcL (1.6-8.9)
[2016-05-22 06:29] LABS: Large Platelets Present (Not Present); Platelet Estimate Normal (Normal); Reactive Lymphocytes Present (Not Present); Toxic Granulation Present (Not Present)
[2016-05-22] MEDS: Insulin LISPRO 300 UNITS/3 ML VIAL SQ SCH ×4 (09:19→22:20)
[2016-05-22] MEDS: Bumetanide 1 MG TABLET PO SCH (09:24)
[2016-05-22] MEDS ORDERED: *HR* Morphine 2 MG/ML SYRINGE IVP PRN ×2 (11:44→14:44)
[2016-05-22] MEDS ORDERED: Sennosides 8.6 MG TABLET PO PRN (16:30)
--- NOTE | 2016-05-22 17:50 | Internal Med Progress Note ---
Date of Encounter: 05/22/16 Time of Encounter: 17:48 - Assessment and plan (1) Fecal impaction Current Visit: Yes Status: Acute (2) Superior vena cava syndrome Current Visit: Yes Status: Acute (3) Cancer associated pain Current Visit: Yes Status: Chronic (4) Pleural effusion, right Current Visit: Yes Status: Chronic (5) Small cell carcinoma of right lung Current Visit: Yes Status: Chronic Assessment and plan: will add miralax, senna and colace. continue enema prn appreciate oncology input. Respiratory status improved, s/p drainage of pleuravac, continue to monitor. b/l upper ext doppler neg for DVT continue analgesics as needed. anticipate discharge to rehab in 1-2 days. - Subjective Interval history: f/u for shortness of breath and consitpation, says still feels constipated. - Constitutional Vitals: Temp Pulse Resp BP Pulse Ox 98.5 F 98 16 106/45 98 05/22/16 15:54 05/22/16 15:54 05/22/16 15:54 05/22/16 15:54 05/22/16 15:54 General appearance: Present: A&O X 3, pleasant, no acute distress - Head Head exam: Present: atraumatic, normocephalic - Eye Eye exam: Present: PERRL, conjuntiva pink, sclera anicteric Pupils: Present: PERRL - Neck Neck exam general surgery: Present: supple, trachea midline. Absent: lymphadenopathy - Respiratory Respiratory exam: Present: CTAB. Absent: accessory muscle use, rales, rhonchi, wheezes - Cardiovascular Cardiovascular exam: Present: RRR, +S1, +S2. Absent: diastolic murmur, gallop, rubs, systolic murmur - GI/Abdominal GI/Abdominal exam: Present: normal bowel sounds, soft, no peritoneal signs. Absent: distended, tenderness - Extremities Exam Extremities exam: Present: warm, radial pulses palpable and symetrical. Absent : calf tenderness, cyanotic, pedal edema - Neurological Exam Neurological exam: Present: CN II-XII intact, oriented X3, no focal deficits. Absent: pronater drift, facial droop, speech deficit - Skin Skin exam: Present: dry, intact Internal Medicine: Result - Labs CBC & Chem 7: 05/22/16 05:36 05/22/16 05:36 Labs: Short CBC 05/22/16 Range/Units 05:36 WBC 8.9 D (4.3-11.1) K/mcL Hgb 10.2 L (11.5-15.4) g/dL Hct 31.6 L (35.3-44.9) % Plt Count 264 (140-400) K/mcL Neutrophils # 6.4 (1.6-8.9) K/mcL BMP 05/22/16 05:36 Sodium 140 Potassium 3.8 Chloride 95 L Carbon Dioxide 36 H BUN 19 Creatinine 0.57 Glucose 91 Calcium 9.1 - VTE Documentation of Mechanical Device: Intermittent pneumatic compression device Consult Discharge Plan - Plan Additional Instructions: She will need follow-up with Dr. Mart Kinney at the cancer center. Referrals: Lew Carroll MD [Primary Care Provider] - Mart Kinney MD [Partnered Physician] - 05/28/16 2:50 pm
[2016-05-22] MEDS: Hydrocortisone Rectal 2.5% CRM 28 GM TUBE RC PRN (18:03)
[2016-05-22] MEDS: *HR* LORazepam 1 MG TABLET PO PRN (18:23)
[2016-05-22] MEDS: *HR* OxyCODONE Immed Rel 5 MG TABLET PO PRN (18:23)
[2016-05-22] MEDS: traZODone 50 MG TABLET PO SCH (22:21)
[2016-05-23] MEDS: *HR* OxyCODONE Immed Rel 5 MG TABLET PO PRN ×2 (03:38→13:22)
[2016-05-23 04:02] LABS: Hematocrit 31.9 % (35.3-44.9); Hemoglobin 10.4 g/dL (11.5-15.4); Mean Corpuscular HGB Conc 32.6 g/dL (31.6-35.5); Mean Corpuscular Hemoglobin 29.5 pg (28.0-33.3); Mean Corpuscular Volume 90.6 fL (83.0-100.0); Mean Platelet Volume 9.5 fL (9.4-12.4); Platelet Count 261 K/mcL (140-400); Red Blood Count 3.52 M/mcL (3.82-4.97); Red Cell Distribution Width 15.6 % (11.5-14.5)
[2016-05-23 04:18] LABS: BUN/Creatinine Ratio 33 (6-26); Blood Urea Nitrogen 22 mg/dL (7-20); Calcium 9.1 mg/dL (8.6-10.8); Carbon Dioxide 35 mEq/L (19-29); Chloride 96 mEq/L (98-109); Glucose 122 mg/dL (70-99); Osmolality,Calculated 291 (280-300); Potassium 3.6 mEq/L (3.5-4.5); Sodium 138 mEq/L (136-145); eGFR For African Americans > 60 (> 60); eGFR For Non-African Americans > 60 (> 60)
[2016-05-23 04:42] LABS: Eosinophils # 0.1 K/mcL (0.0-0.6); Lymphocytes # 1.8 K/mcL (0.6-4.6); Monocytes # 0.4 K/mcL (0.0-1.3)
[2016-05-23 04:43] LABS: Large Platelets Present (Not Present); Platelet Estimate Normal (Normal); Reactive Lymphocytes Present (Not Present)
[2016-05-23] MEDS: *HR* Enoxaparin 40 MG/0.4 ML SYRINGE SQ SCH (06:15)
[2016-05-23 07:31] VITALS: BP 105/58
[2016-05-23] MEDS: Insulin LISPRO 300 UNITS/3 ML VIAL SQ SCH ×2 (08:03→12:47)
[2016-05-23] MEDS ORDERED: Nicotine 14 MG PATCH.TD24 TD SCH (09:00)
[2016-05-23] MEDS ORDERED: Sennosides 8.6 MG TABLET PO SCH (09:00)
[2016-05-23] MEDS: Bumetanide 1 MG TABLET PO SCH (09:32)
[2016-05-23] MEDS: *HR* LORazepam 1 MG TABLET PO PRN (09:38)
[2016-05-23] MEDS ORDERED: Fluconazole 100 MG TABLET PO ONE (10:36)
--- NOTE | 2016-05-23 10:36 | Discharge Summary ---
Date of Encounter: 05/23/16 Time of Encounter: 10:21 - Discharge Diagnosis (1) Pleural effusion, right Priority: Primary Status: Chronic (2) Fecal impaction Priority: Secondary Status: Acute (3) Superior vena cava syndrome Priority: Secondary Status: Acute (4) Cancer associated pain Priority: Secondary Status: Chronic (5) Small cell carcinoma of right lung Priority: Secondary Status: Chronic - Discharge Medications Prescriptions: Docusate [Colace] 100 mg PO BID #100 capsule Nicotine Patch [Nicoderm] 14 mg TD DAILY #14 patch.td24 Sennosides [Senna] 17.2 mg PO BID #100 tablet Home Medications: Aspirin/Calcium Carbonate/Mag [Aspirin Buffered 325 mg Tab] 325 mg PO DAILY 01/25 [History] Lisinopril [Zestril] 10 mg PO DAILY 03/20/16 [History] Magic Mouthwash 5 ml PO Q4H PRN #240 ml 03/27/16 [Rx] Bumetanide [Bumex] 0.5 mg PO DAILY #15 tablet 04/19/16 [Rx] LORazepam [Ativan] 1 tab PO BID PRN #60 tablet 04/19/16 [Rx] Ondansetron HCl [Zofran] 4 mg PO Q6HR PRN #20 tablet 04/19/16 [Rx] Potassium Chloride 20 meq PO DAILY #30 tab.er.prt 04/19/16 [Rx] Prochlorperazine Maleate [Compazine] 10 mg PO Q6HR PRN #30 tablet 04/19/16 [Rx] TraZODone 50 mg PO HS #30 tablet 04/19/16 [Rx] Zolpidem [Ambien] 5 mg PO HS PRN #30 tablet 04/19/16 [Rx] Dexamethasone [Decadron] 1 tab PO BID #30 tablet 04/26/16 [Rx] Acetaminophen [Tylenol] 1,000 mg PO Q6HR PRN #120 tablet 05/03/16 [Rx] Ibuprofen [Motrin] 600 mg PO Q8HR PRN #90 tablet 05/03/16 [Rx] Oxycodone HCl 5 mg PO Q6H PRN #20 capsule 05/03/16 [Rx] Na Phos,M-B/Na Phos,Di-Ba [Fleet Enema Extra] 230 ml RC ONCE #1 enema 05/09/16 [ Rx] Albuterol Sulfate [Albuterol Inhaler] 2 puff IH Q4H PRN 05/19/16 [History] Oxygen 2 l .ROUTE AD 05/19/16 [History] Docusate [Colace] 100 mg PO BID #100 capsule 05/23/16 [Rx] Nicotine Patch [Nicoderm] 14 mg TD DAILY #14 patch.td24 05/23/16 [Rx] Polyethylene Glycol 3350 [MiraLAX] 17 gm PO DAILY PRN #30 powd.pack 05/23/16 [Rx ] Sennosides [Senna] 17.2 mg PO BID #100 tablet 05/23/16 [Rx] Allergies/Adverse Reactions: Allergies Bee Pollen Allergy (Verified 05/19/16 10:25) Anaphylaxis Penicillins Allergy (Verified 05/19/16 15:52) Hives Procedures/tests Complete & Pending: Procedures Performed prior 72 hours Category Date Time Status Venous Doppler [EV venous imaging UE BI] Routine Y 05/20/16 10:48 Completed Date of admission: 05/19/16 15:43 Primary care physician: Lew Carroll MD Consults: 05/19/16 16:11 Consult to Oncology [CONS] Routine Consulting Provider: Oncology Hemo [facility] Reason for Consult: Patient with stage IV Small cell lung CA, with SVC syndrome admitted with multiple complains among which are worsening L upper extremity swelling s/p port-a-cath placement. Pls evaluate. Call Completed: No 05/19/16 17:11 Consult to Nutrition [CONS] Routine Comment: Consulting Provider: NUTRITION Reason for Dietary Consult: MST Score Consult to [employer] [CONS] Routine Reason for SW Consult: CURRENTLY HAS [facility] 02 W/ BIPAP 05/20/16 06:21 Consult to Physical Therapy [CONS] Routine Comment: Evaluate, develop and implement POC 05/20/16 07:29 Consult to Pastoral Services [CONS] Routine Comment: 05/21/16 12:03 Consult to Occupational Therapy [CONS] Routine Comment: Evaluate, develop and implement POC - Patient Status Disposition: Transfer Inpatient Rehab Fac Condition: Fair Overall status at discharge: patient is progressing back to baseline - Discharge Instructions Instructions: Depression (DC), Diabetes Mellitus Type 2 in Adults (DC), Chronic Obstructive Pulmonary Disease (DC), Anemia (GEN), Anxiety (DC), Pneumonia (DC), Cigarette Smoking and Your Health, 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 Mart Kinney at the cancer center. - Diet and Activity Activity: increase activity as tolerated Diet: advance to your usual diet Hospital course: Ms. Guzman is a 65 year old female with hx of lung cancer, chronic pleuravac who presented with shortness of breath which improved with draining of the effusion via pleuravac. Also had superior vena cava syndrome, opioid induced constipation. Venous doppler of the bilateral Upper ext were negative for DVT. Pt was seen by oncology, no anticoagulation recommended. Pt had multiple laxatives and eventually had a BM, she will be continued on daily laxatives. She also complained of Vaginal "yeast" symptoms and had been give a dose of Diflucan. She will be discharged to [facility] in stable condition. - Time Spent with Patient Total time spent providing and/or coordinating discharge services: - Constitutional Vitals: Temp Pulse Resp BP Pulse Ox 98.2 F 92 15 105/58 94 L 05/23/16 07:00 05/23/16 07:00 05/23/16 07:00 05/23/16 07:00 05/23/16 09:44 General appearance: Present: A&O X 3, pleasant, no acute distress - Head Head exam: Present: atraumatic, normocephalic - Eye Eye exam: Present: PERRL, conjuntiva pink, sclera anicteric Pupils: Present: PERRL - Neck Neck exam general surgery: Present: supple, trachea midline. Absent: lymphadenopathy - Respiratory Respiratory exam: Present: CTAB. Absent: accessory muscle use, rales, rhonchi, wheezes - Cardiovascular Cardiovascular exam: Present: RRR, +S1, +S2. Absent: diastolic murmur, gallop, rubs, systolic murmur Additional comments: right posterior chest pleuravac in place. - GI/Abdominal GI/Abdominal exam: Present: normal bowel sounds, soft, no peritoneal signs. Absent: distended, tenderness - Extremities Exam Extremities exam: Present: warm, radial pulses palpable and symetrical. Absent : calf tenderness, cyanotic, pedal edema - Neurological Exam Neurological exam: Present: CN II-XII intact, oriented X3, no focal deficits. Absent: pronater drift, facial droop, speech deficit - Skin Skin exam: Present: dry, intact - VTE Documentation of Mechanical Device: Intermittent pneumatic compression device
--- NOTE | 2016-05-23 10:52 | Physician Discharge Referral ---
ExtendedCare Referral Info Transfer To: Rehab Institutional Level of Care: Skilled - Diagnosis (1) Pleural effusion, right Status: Chronic (2) Fecal impaction Status: Acute (3) Superior vena cava syndrome Status: Acute (4) Cancer associated pain Status: Chronic (5) Small cell carcinoma of right lung Status: Chronic - Transfer Medications Prescriptions: Docusate [Colace] 100 mg PO BID #100 capsule Nicotine Patch [Nicoderm] 14 mg TD DAILY #14 patch.td24 Sennosides [Senna] 17.2 mg PO BID #100 tablet Home Medications: Aspirin/Calcium Carbonate/Mag [Aspirin Buffered 325 mg Tab] 325 mg PO DAILY 01/25 [History] Lisinopril [Zestril] 10 mg PO DAILY 03/20/16 [History] Magic Mouthwash 5 ml PO Q4H PRN #240 ml 03/27/16 [Rx] Bumetanide [Bumex] 0.5 mg PO DAILY #15 tablet 04/19/16 [Rx] LORazepam [Ativan] 1 tab PO BID PRN #60 tablet 04/19/16 [Rx] Ondansetron HCl [Zofran] 4 mg PO Q6HR PRN #20 tablet 04/19/16 [Rx] Potassium Chloride 20 meq PO DAILY #30 tab.er.prt 04/19/16 [Rx] Prochlorperazine Maleate [Compazine] 10 mg PO Q6HR PRN #30 tablet 04/19/16 [Rx] TraZODone 50 mg PO HS #30 tablet 04/19/16 [Rx] Zolpidem [Ambien] 5 mg PO HS PRN #30 tablet 04/19/16 [Rx] Dexamethasone [Decadron] 1 tab PO BID #30 tablet 04/26/16 [Rx] Acetaminophen [Tylenol] 1,000 mg PO Q6HR PRN #120 tablet 05/03/16 [Rx] Ibuprofen [Motrin] 600 mg PO Q8HR PRN #90 tablet 05/03/16 [Rx] Oxycodone HCl 5 mg PO Q6H PRN #20 capsule 05/03/16 [Rx] Na Phos,M-B/Na Phos,Di-Ba [Fleet Enema Extra] 230 ml RC ONCE #1 enema 05/09/16 [ Rx] Albuterol Sulfate [Albuterol Inhaler] 2 puff IH Q4H PRN 05/19/16 [History] Oxygen 2 l .ROUTE AD 05/19/16 [History] Docusate [Colace] 100 mg PO BID #100 capsule 05/23/16 [Rx] Nicotine Patch [Nicoderm] 14 mg TD DAILY #14 patch.td24 05/23/16 [Rx] Polyethylene Glycol 3350 [MiraLAX] 17 gm PO DAILY PRN #30 powd.pack 05/23/16 [Rx ] Sennosides [Senna] 17.2 mg PO BID #100 tablet 05/23/16 [Rx] Allergies/Adverse Reactions: Allergies Bee Pollen Allergy (Verified 05/19/16 10:25) Anaphylaxis Penicillins Allergy (Verified 05/19/16 15:52) Hives - Respiratory Orders Smoking Cessation: Smoking cessation has been advised. For more information, call the [place] Tobacco Quit Line at 6-391-CVXQ-NOW. - Advance Directives Code Status: DNR-Arrest/Don't Intubate CERTIFICATION: I certify that the transfer of the above named patient to an Extended Care Facility is necessary for the continuing treatment of the diagnosis listed. The above information is true and accurate reflection of patient's current condition. Confidential - Redisclosure prohibited without a patient's written consent.
== END 2016-05-23 14:08 ==
LOC: 2NENU 10:19 → EMEROO 10:19 → SUATTDRO 15:43 → 2NENU 16:12
PROVIDERS: ADMIT Internal Medicine; ATTEND Family Medicine

== ENCOUNTER 2016-06-04 16:13 | Inpatient (IN) ==
--- NOTE | 2016-06-04 17:03 | Emergency Department Note ---
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, Pulmonary emboli, DVT (deep venous thrombosis) Disposition: Admitted As Inpatient Condition: Serious Referrals: Lew Carroll MD [Primary Care Provider] - Forms: ED Satisfaction Letter Time of Disposition: 20:04 General Adult HPI - General Chief complaint: ED Extremity Injury, Upper Stated complaint: cat scratch fever Time Seen by Provider: 06/04/16 16:43 Source: patient Mode of arrival: ambulatory Limitations: no limitations Nursing Notes Reviewed: Yes Vital Signs Reviewed: Yes - History of Present Illness HPI Narrative: 65-year-old presents with 2-3 days of worsening bilateral upper extremity and facial edema. This is temporally related to a superficial scratch from her cat for 5 days ago. She was seen at her oncologist today who sent her to the hospital for workup of her swelling. She thought that she was only supposed to get an outpatient study, but there is confusion and registration sharon came to emergency department for evaluation. She states that she has lung cancer and her shortness of breath is stable. She denies any chest pain. She admits to mild lower extremity edema. She denies any rashes or pain to her upper extremities. She denies any fever, headache, confusion, neck pain or stiffness , GI or symptoms. Pain Scale: 8 - Related Data Home Medications Medication Instructions Recorded Confirmed RX: Aspirin/Calcium Carbonate/Mag 325 mg PO DAILY 03/20/16 05/29/16 [Aspirin Buffered 325 mg Tab] RX: Lisinopril [Zestril] 10 mg PO DAILY 03/20/16 05/29/16 RX: Albuterol Sulfate [Albuterol 2 puff IH Q4H PRN 05/19/16 05/29/16 Inhaler] RX: Dexamethasone [Decadron] 4 mg PO BID 05/23/16 05/29/16 RX: LORazepam [Ativan] 1 mg PO BID PRN 05/23/16 05/29/16 Previous Rx's Medication Instructions Recorded RX: Magic Mouthwash 5 ml PO Q4H PRN #240 ml 03/27/16 RX: Bumetanide [Bumex] 0.5 mg PO DAILY #15 tablet 04/19/16 RX: Ondansetron HCl [Zofran] 4 mg PO Q6HR PRN #20 tablet 04/19/16 RX: Potassium Chloride 20 meq PO DAILY #30 tab.er.prt 04/19/16 RX: Prochlorperazine Maleate 10 mg PO Q6HR PRN #30 tablet 04/19/16 [Compazine] RX: TraZODone 50 mg PO HS #30 tablet 04/19/16 RX: Zolpidem [Ambien] 5 mg PO HS PRN #30 tablet 04/19/16 RX: Acetaminophen [Tylenol] 1,000 mg PO Q6HR PRN #120 tablet 05/03/16 RX: Ibuprofen [Motrin] 600 mg PO Q8HR PRN #90 tablet 05/03/16 RX: Oxycodone HCl 5 mg PO Q6H PRN #20 capsule 05/03/16 RX: Na Phos,M-B/Na Phos,Di-Ba 230 ml RC ONCE #1 enema 05/09/16 [Fleet Enema Extra] RX: Docusate [Colace] 100 mg PO BID #100 capsule 05/23/16 RX: Nicotine Patch [Nicoderm] 14 mg TD DAILY #14 patch.td24 05/23/16 RX: Polyethylene Glycol 3350 17 gm PO DAILY PRN #30 powd.pack 05/23/16 [MiraLAX] Sennosides [Senna] 17.2 mg PO BID #100 tablet 05/23/16 Bed - Hospital [Hospital Bed] 1 each .ROUTE AD #1 each 05/29/16 Magic Mouthwash [Magic Mouthwash 10 ml PO QID PRN #240 ml 05/29/16 BLM] Allergies Allergy/AdvReac Type Severity Reaction Status Date / Time Bee Pollen Allergy Anaphylaxis Verified 05/29/16 13:05 Penicillins Allergy Hives Verified 05/29/16 13:05 All systems ED: reviewed and negative except as stated. Past Medical History - Past Medical History Attestation: Yes The following information was validated with the patient. 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 - Social History Smoking Status: Former smoker Smokeless Tobacco Status: No Alcohol use: Reports: none Drug use: Reports: none Physical Exam - Head Head exam: atraumatic, normocephalic, normal inspection - Eye Eye exam: Present: normal appearance, PERRL, EOMI - ENT ENT exam: Facial edema, normal oropharynx, mucous membranes moist - Neck Neck exam: Present: normal inspection, full ROM, trachea midline - Chest Chest inspection: Present: normal inspection, symmetric chest wall rise - Respiratory Respiratory exam: Clear to auscultation bilaterally without wheezes rales or rhonchi Cardiovascular Cardiovascular exam: Present: regular rate, normal rhythm, normal heart sounds - Abdominal Exam Abdominal exam: Present: soft, Non-Tender. Absent: tenderness, distention, guarding, rebound, rigidity - Extremities Exam Bilateral upper extremity pitting edema - Back Exam Back exam: Present: normal inspection, full ROM. Absent: tenderness, CVA tenderness (R), CVA tenderness (L) - Neurological Exam Neurological exam: Present: alert, oriented X3, CN II-XII intact - Psychiatric Psychiatric exam: Present: normal affect, normal mood - Skin Skin exam: Present: warm, dry, intact, normal color - General Limitations: no limitations General appearance: alert, in no apparent distress Course Course Narrative: Pt accepted to Dr. Miller. - Reevaluation(s) Reevaluation #1: Case discussed with oncologist conservation officer Dr. Collado, she discussed the case with Dr. Kinney. She clarified that there was no concern for cat scratch disease in the patient, but rather she was supposed to be seen at outpatient cardiopulmonary ultrasound for upper extremity DVT study bilaterally for the edema. The patient and family were confused and did not go to the right department. Dr. Kinney will be able to see the patient in follow-up if she is appropriate for discharge. Time: 17:46 Reevaluation #2: Notified by radiologist with [facility] radiology of multiple segmental pulmonary emboli. At that time, the patient was receiving upper extremity DVT study which was found to be positive for right IJ and subclavian artery thrombi. Left upper 70s pending. Patient in no acute distress at this time. She does not have increased oxygen requirement or hypotension or tachycardia. Given her multiple malignancies she would not be a candidate for systemic TPA. She will be admitted on anticoagulation. Hospitalist paged. Time: 20:02 Reevaluation #3: Hospitalist requested that I call Dr. Jo, vascular surgeon. Given the patient's metastatic cancer, she would be a severe bleeding risk if she were given TPA. He agrees with no TPA given the patient's stable vitals at this time and high risk for fatal bleeding. He does not know of any surgical management that would be helpful for this patient unfortunately. I discussed the patient's prognosis with her and she states that she would like to be full code for the time being. Time: 20:24 Vital Signs Temperature 98.3 F 06/04/16 16:14 Pulse Rate 111 06/04/16 16:14 Respiratory Rate 20 06/04/16 16:14 Blood Pressure 152/93 06/04/16 16:14 O2 Sat by Pulse Oximetry 96 06/04/16 16:14 Temperature 98.3 F 06/04/16 16:14 Pulse Rate 111 06/04/16 16:14 Respiratory Rate 20 06/04/16 16:14 Blood Pressure 152/93 06/04/16 16:14 O2 Sat by Pulse Oximetry 96 06/04/16 16:14 Oxygen Delivery Oxygen Delivery Room Air Medical Decision Making - Lab Data Result diagrams: 06/04/16 18:00 06/04/16 18:00 Lab Results 06/04/16 06/04/16 06/04/16 Range/Units 18:00 18:00 18:00 WBC 18.1 H (4.3-11.1) K/mcL RBC 3.49 L (3.82-4.97) M/mcL Hgb 10.3 L (11.5-15.4) g/dL Hct 33.0 L (35.3-44.9) % MCV 94.6 (83.0-100.0) fL MCH 29.5 (28.0-33.3) pg MCHC 31.2 L (31.6-35.5) g/dL RDW 18.3 H (11.5-14.5) % Plt Count 437 H (140-400) K/mcL MPV 8.8 L (9.4-12.4) fL Immature Gran % 1.6 (0-4) % Seg Neutrophils % 94.4 % Lymphocytes % 2.0 % Monocytes % 1.9 % Eosinophils % 0.0 % Basophils % 0.1 % Neutrophils # 17.1 H (1.6-8.9) K/mcL Lymphocytes # 0.4 L (0.6-4.6) K/mcL Monocytes # 0.4 (0.0-1.3) K/mcL Eosinophils # 0.0 (0.0-0.6) K/mcL Basophils # 0.0 (0.0-0.2) K/mcL Sodium 142 (136-145) mEq/L Potassium 4.1 (3.5-4.5) mEq/L Chloride 102 (98-109) mEq/L Carbon Dioxide 28 (19-29) mEq/L BUN 31 H (7-20) mg/dL Creatinine 0.76 (0.57-1.11) mg/dL Est GFR ( Amer) > 60 (> 60) Est GFR (Non-Af Amer) > 60 (> 60) BUN/Creatinine Ratio 41 H (6-26) Glucose 128 H (70-99) mg/dL Calculated Osmolality 302 H (280-300) Calcium 9.3 (8.6-10.8) mg/dL Total Bilirubin 0.4 (0.2-1.2) mg/dL Direct Bilirubin 0.1 (0.0-0.5) mg/dL Indirect Bilirubin 0.3 (0.0-1.2) mg/dL AST 24 (5-34) Units/L ALT 35 (0-55) Units/L Alkaline Phosphatase 110 (38-126) Units/L Troponin I 0.00 (0-0.03) ng/mL B-Natriuretic Peptide (0-100) pg/mL Serum Total Protein 6.3 (6.0-8.3) g/dL Albumin 2.7 L (3.5-5.0) g/dL Globulin 3.6 H (2.4-3.5) g/dL Albumin/Globulin Ratio 0.8 L (1.1-2.2) TSH 1.262 (0.350-4.840) mcIU/mL 06/04/16 Range/Units 18:00 WBC (4.3-11.1) K/mcL RBC (3.82-4.97) M/mcL Hgb (11.5-15.4) g/dL Hct (35.3-44.9) % MCV (83.0-100.0) fL MCH (28.0-33.3) pg MCHC (31.6-35.5) g/dL RDW (11.5-14.5) % Plt Count (140-400) K/mcL MPV (9.4-12.4) fL Immature Gran % (0-4) % Seg Neutrophils % % Lymphocytes % % Monocytes % % Eosinophils % % Basophils % % Neutrophils # (1.6-8.9) K/mcL Lymphocytes # (0.6-4.6) K/mcL Monocytes # (0.0-1.3) K/mcL Eosinophils # (0.0-0.6) K/mcL Basophils # (0.0-0.2) K/mcL Sodium (136-145) mEq/L Potassium (3.5-4.5) mEq/L Chloride (98-109) mEq/L Carbon Dioxide (19-29) mEq/L BUN (7-20) mg/dL Creatinine (0.57-1.11) mg/dL Est GFR ( Amer) (> 60) Est GFR (Non-Af Amer) (> 60) BUN/Creatinine Ratio (6-26) Glucose (70-99) mg/dL Calculated Osmolality (280-300) Calcium (8.6-10.8) mg/dL Total Bilirubin (0.2-1.2) mg/dL Direct Bilirubin (0.0-0.5) mg/dL Indirect Bilirubin (0.0-1.2) mg/dL AST (5-34) Units/L ALT (0-55) Units/L Alkaline Phosphatase (38-126) Units/L Troponin I (0-0.03) ng/mL B-Natriuretic Peptide 26 (0-100) pg/mL Serum Total Protein (6.0-8.3) g/dL Albumin (3.5-5.0) g/dL Globulin (2.4-3.5) g/dL Albumin/Globulin Ratio (1.1-2.2) TSH (0.350-4.840) mcIU/mL - EKG Data EKG #1 EKG attestation: Yes I reviewed and interpreted this EKG. EKG results narrative: Sinus tachycardia at 102 with normal axis and intervals. No ST elevation or depression. No T-wave inversions or flattening.
--- NOTE | 2016-06-04 18:04 | Emergency Department Note ---
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, Pulmonary emboli, DVT (deep venous thrombosis) Disposition: Admitted As Inpatient Condition: Serious General Adult HPI - General Chief complaint: ED Extremity Injury, Upper Stated complaint: cat scratch fever Time Seen by Provider: 06/04/16 16:43 Source: patient Mode of arrival: ambulatory Limitations: no limitations - History of Present Illness Pain Scale: 8 - Related Data Home Medications Medication Instructions Recorded Confirmed Aspirin/Calcium Carbonate/Mag 325 mg PO DAILY 03/20/16 06/04/16 [Aspirin Buffered 325 mg Tab] Lisinopril [Zestril] 10 mg PO DAILY 03/20/16 06/04/16 Albuterol Sulfate [Albuterol 2 puff IH Q4H PRN 05/19/16 06/04/16 Inhaler] Dexamethasone [Decadron] 4 mg PO BID 05/23/16 05/29/16 LORazepam [Ativan] 1 mg PO BID PRN 05/23/16 06/04/16 Previous Rx's Medication Instructions Recorded Bumetanide [Bumex] 0.5 mg PO DAILY #15 tablet 04/19/16 Ondansetron HCl [Zofran] 4 mg PO Q6HR PRN #20 tablet 04/19/16 Potassium Chloride 20 meq PO DAILY #30 tab.er.prt 04/19/16 Prochlorperazine Maleate 10 mg PO Q6HR PRN #30 tablet 04/19/16 [Compazine] TraZODone 50 mg PO HS #30 tablet 04/19/16 Zolpidem [Ambien] 5 mg PO HS PRN #30 tablet 04/19/16 Acetaminophen [Tylenol] 1,000 mg PO Q6HR PRN #120 tablet 05/03/16 Ibuprofen [Motrin] 600 mg PO Q8HR PRN #90 tablet 05/03/16 Oxycodone HCl 5 mg PO Q6H PRN #20 capsule 05/03/16 Docusate [Colace] 100 mg PO BID #100 capsule 05/23/16 Nicotine Patch [Nicoderm] 14 mg TD DAILY #14 patch.td24 05/23/16 Polyethylene Glycol 3350 [MiraLAX] 17 gm PO DAILY PRN #30 powd.pack 05/23/16 Sennosides [Senna] 17.2 mg PO BID #100 tablet 05/23/16 Magic Mouthwash [Magic Mouthwash 10 ml PO QID PRN #240 ml 05/29/16 BLM] Allergies Allergy/AdvReac Type Severity Reaction Status Date / Time Bee Pollen Allergy Anaphylaxis Verified 05/29/16 13:05 Penicillins Allergy Hives Verified 05/29/16 13:05 Past Medical History - Past Medical History Medical history: Reports: arthritis, asthma, cancer, COPD, diabetes, GERD, hyperlipidemia, hypertension, other Surgical history: Reports: , hysterectomy Psychiatric history: Reports: anxiety [employer] MIN[employer] history: Reports: no [employer] MIN[employer] history - Social History Smoking Status: Former smoker Smokeless Tobacco Status: No Alcohol use: Reports: none Drug use: Reports: none Physical Exam - General Limitations: no limitations General appearance: alert, in no apparent distress Course - Reevaluation(s) Reevaluation #1: Saw the patient with the resident, Dr. Rivers. Patient presents with edema to bilateral upper extremities and face and head. I do not see significant edema in her legs at all. Patient has a history of lung cancer. My immediate concern is superior vena cava syndrome. Ordering a Doppler her arms but CTA her chest as well. Disposition will be based on diagnostic results and reevaluation. Time: 18:04 Reevaluation #2: SK shows multiple pulmonary emboli. Evaluation of the superior vena cava is inadequate due to the position of her port and where the dye entered the chest cavity. However, Doppler study of the upper strandy show subclavian and internal jugular vein thromboses. This corroborates superior vena cava syndrome despite the fact that we cannot see it clearly on the CT scan. Patient will need to be anticoagulated and admitted to the hospital. Will make those arrangements. Time: 20:02 Vital Signs Temperature 98.3 F 06/04/16 16:14 Pulse Rate 111 06/04/16 16:14 Respiratory Rate 20 06/04/16 16:14 Blood Pressure 152/93 06/04/16 16:14 O2 Sat by Pulse Oximetry 96 06/04/16 16:14 Temperature 98.7 F 06/06/16 04:48 Pulse Rate 93 06/06/16 04:48 Respiratory Rate 18 06/06/16 04:48 Blood Pressure 140/71 06/06/16 04:48 O2 Sat by Pulse Oximetry 93 L 06/06/16 08:00 Oxygen Delivery Oxygen Delivery Nasal Cannula Medical Decision Making - Lab Data Result diagrams: 06/06/16 05:04 06/06/16 05:04 Lab Results 06/04/16 06/04/16 06/04/16 Range/Units 18:00 18:00 18:00 WBC 18.1 H (4.3-11.1) K/mcL RBC 3.49 L (3.82-4.97) M/mcL Hgb 10.3 L (11.5-15.4) g/dL Hct 33.0 L (35.3-44.9) % MCV 94.6 (83.0-100.0) fL MCH 29.5 (28.0-33.3) pg MCHC 31.2 L (31.6-35.5) g/dL RDW 18.3 H (11.5-14.5) % Plt Count 437 H (140-400) K/mcL MPV 8.8 L (9.4-12.4) fL Immature Gran % 1.6 (0-4) % Seg Neutrophils % 94.4 % Lymphocytes % 2.0 % Monocytes % 1.9 % Eosinophils % 0.0 % Basophils % 0.1 % Neutrophils # 17.1 H (1.6-8.9) K/mcL Lymphocytes # 0.4 L (0.6-4.6) K/mcL Monocytes # 0.4 (0.0-1.3) K/mcL Eosinophils # 0.0 (0.0-0.6) K/mcL Basophils # 0.0 (0.0-0.2) K/mcL PT (9.4-12.1) Seconds INR APTT (26.0-36.0) Seconds Sodium 142 (136-145) mEq/L Potassium 4.1 (3.5-4.5) mEq/L Chloride 102 (98-109) mEq/L Carbon Dioxide 28 (19-29) mEq/L BUN 31 H (7-20) mg/dL Creatinine 0.76 (0.57-1.11) mg/dL Est GFR ( Amer) > 60 (> 60) Est GFR (Non-Af Amer) > 60 (> 60) BUN/Creatinine Ratio 41 H (6-26) Glucose 128 H (70-99) mg/dL Calculated Osmolality 302 H (280-300) Calcium 9.3 (8.6-10.8) mg/dL Total Bilirubin 0.4 (0.2-1.2) mg/dL Direct Bilirubin 0.1 (0.0-0.5) mg/dL Indirect Bilirubin 0.3 (0.0-1.2) mg/dL AST 24 (5-34) Units/L ALT 35 (0-55) Units/L Alkaline Phosphatase 110 (38-126) Units/L Troponin I 0.00 (0-0.03) ng/mL B-Natriuretic Peptide (0-100) pg/mL Serum Total Protein 6.3 (6.0-8.3) g/dL Albumin 2.7 L (3.5-5.0) g/dL Globulin 3.6 H (2.4-3.5) g/dL Albumin/Globulin Ratio 0.8 L (1.1-2.2) TSH 1.262 (0.350-4.840) mcIU/mL 06/04/16 06/04/16 06/04/16 Range/Units 18:00 18:00 20:55 WBC 16.7 H (4.3-11.1) K/mcL RBC 3.40 L (3.82-4.97) M/mcL Hgb 10.0 L (11.5-15.4) g/dL Hct 32.1 L (35.3-44.9) % MCV 94.4 (83.0-100.0) fL MCH 29.4 (28.0-33.3) pg MCHC 31.2 L (31.6-35.5) g/dL RDW 18.2 H (11.5-14.5) % Plt Count 428 H (140-400) K/mcL MPV 8.9 L (9.4-12.4) fL Immature Gran % (0-4) % Seg Neutrophils % % Lymphocytes % % Monocytes % % Eosinophils % % Basophils % % Neutrophils # (1.6-8.9) K/mcL Lymphocytes # (0.6-4.6) K/mcL Monocytes # (0.0-1.3) K/mcL Eosinophils # (0.0-0.6) K/mcL Basophils # (0.0-0.2) K/mcL PT 11.7 (9.4-12.1) Seconds INR 1.1 APTT 23.0 L (26.0-36.0) Seconds Sodium (136-145) mEq/L Potassium (3.5-4.5) mEq/L Chloride (98-109) mEq/L Carbon Dioxide (19-29) mEq/L BUN (7-20) mg/dL Creatinine (0.57-1.11) mg/dL Est GFR ( Amer) (> 60) Est GFR (Non-Af Amer) (> 60) BUN/Creatinine Ratio (6-26) Glucose (70-99) mg/dL Calculated Osmolality (280-300) Calcium (8.6-10.8) mg/dL Total Bilirubin (0.2-1.2) mg/dL Direct Bilirubin (0.0-0.5) mg/dL Indirect Bilirubin (0.0-1.2) mg/dL AST (5-34) Units/L ALT (0-55) Units/L Alkaline Phosphatase (38-126) Units/L Troponin I (0-0.03) ng/mL B-Natriuretic Peptide 26 (0-100) pg/mL Serum Total Protein (6.0-8.3) g/dL Albumin (3.5-5.0) g/dL Globulin (2.4-3.5) g/dL Albumin/Globulin Ratio (1.1-2.2) TSH (0.350-4.840) mcIU/mL Attestation Statement - Attestation Attestation: I, Dr. Young, examined this patient states the face and my medical decision- making was reviewed with Dr. Rivers, Resident Physician. I agree with the documented findings, disposition and treatment plan as described except to the extent set forth below. Please see my progress notes for details.
[2016-06-04 18:11] LABS: Basophils % 0.1 %; Hemoglobin 10.3 g/dL (11.5-15.4); Immature Granulocytes % 1.6 % (0-4); Lymphocytes # 0.4 K/mcL (0.6-4.6); Mean Corpuscular HGB Conc 31.2 g/dL (31.6-35.5); Mean Corpuscular Hemoglobin 29.5 pg (28.0-33.3); Mean Corpuscular Volume 94.6 fL (83.0-100.0); Mean Platelet Volume 8.8 fL (9.4-12.4); Monocytes # 0.4 K/mcL (0.0-1.3); Monocytes % 1.9 %; Neutrophils # 17.1 K/mcL (1.6-8.9); Platelet Count 437 K/mcL (140-400); Red Blood Count 3.49 M/mcL (3.82-4.97); Red Cell Distribution Width 18.3 % (11.5-14.5); Segmented Neutrophils % 94.4 %
[2016-06-04 18:27] LABS: Alanine Aminotransferase 35 Units/L (0-55); Albumin 2.7 g/dL (3.5-5.0); Albumin/Globulin Ratio 0.8 (1.1-2.2); Alkaline Phosphatase 110 Units/L (38-126); Aspartate Amino Transferase 24 Units/L (5-34); BUN/Creatinine Ratio 41 (6-26); Bilirubin,Direct 0.1 mg/dL (0.0-0.5); Bilirubin,Indirect 0.3 mg/dL (0.0-1.2); Bilirubin,Total 0.4 mg/dL (0.2-1.2); Blood Urea Nitrogen 31 mg/dL (7-20); Calcium 9.3 mg/dL (8.6-10.8); Carbon Dioxide 28 mEq/L (19-29); Chloride 102 mEq/L (98-109); Globulin 3.6 g/dL (2.4-3.5); Glucose 128 mg/dL (70-99); Osmolality,Calculated 302 (280-300); Potassium 4.1 mEq/L (3.5-4.5); Sodium 142 mEq/L (136-145); Total Protein 6.3 g/dL (6.0-8.3); eGFR For African Americans > 60 (> 60); eGFR For Non-African Americans > 60 (> 60)
[2016-06-04 18:47] LABS: Thyroid Stimulating Hormone 1.262 mcIU/mL (0.350-4.840)
[2016-06-04] MEDS ORDERED: *HR* Heparin 5,000 UNIT/ML VIAL IVP ONE (20:01)
[2016-06-04] MEDS ORDERED: *HR* Heparin 5,000 UNIT/ML VIAL IVP PRN ×2 (20:01)
[2016-06-04] MEDS ORDERED: Heparin 25,000 UNIT/500 ML D5W 25,000 UNIT/500 ML MLS IVC SCH (20:15)
[2016-06-04 20:20] LABS: INR 1.1; Prothrombin Time 11.7 Seconds (9.4-12.1)
[2016-06-04 21:01] LABS: Hematocrit 32.1 % (35.3-44.9); Mean Corpuscular HGB Conc 31.2 g/dL (31.6-35.5); Mean Corpuscular Hemoglobin 29.4 pg (28.0-33.3); Mean Corpuscular Volume 94.4 fL (83.0-100.0); Mean Platelet Volume 8.9 fL (9.4-12.4); Platelet Count 428 K/mcL (140-400); Red Cell Distribution Width 18.2 % (11.5-14.5)
[2016-06-04 21:42] LABS: Bilirubin,Urine Negative (Negative); Blood,Urine Negative (Negative); Clarity,Urine Clear (Clear); Color,Urine Yellow (Yellow); Glucose,Urine (UA) Normal (Normal); Ketones,Urine Negative (Negative); Leukocyte Esterase,Urine Negative (Negative); Nitrite,Urine Negative (Negative); PH,Urine 5.5 pH Units (5.0-8.0); Protein,Urine Negative (Neg-Trace); Specific Gravity,Urine 1.015 (1.010-1.025); Urobilinogen,Urine Normal (Normal)
[2016-06-05] MEDS ORDERED: *HR* Morphine 2 MG/ML SYRINGE IVP PRN (00:02)
[2016-06-05] MEDS ORDERED: *HR* Promethazine 25 MG/ML VIAL IVP PRN (00:02)
[2016-06-05] MEDS ORDERED: Ondansetron 4 MG/2 ML VIAL IVP PRN (00:02)
[2016-06-05] MEDS ORDERED: Naloxone 0.4 MG/ML INJ IVP PRN (00:02)
--- NOTE | 2016-06-05 00:28 | Internal Med History&Physical ---
<StanleyKayce Dotson Fernie - Last Filed: 06/05/16 19:49> Date of Encounter: 06/04/16 Time of Encounter: 23:30 Assessment and Plan (1) Superior vena cava compression syndrome Current visit: Yes Status: Acute Multiple risk factors for SVC including: malignancy, IJ catheter, venous thrombosis of right subclavian and IJ US venous doppler of upper extremities 06/04/16: demonstrates right subclavian and IJ venous thromboses -This is a new finding compared to US doppler 05/19/16 CTA: filling defect in RLL segmental pulmonary arteries -Soft tissue mass mediastinum extending to Right hilum and RUL, severe mass effect on Right lobar and segmental bronchioles -No change in mass size from prior study CXR: Right IJ chest port in place, right pleural effusion, bibasilar atelectasis, Right perihilar opacification CT chest 05/19/16: decreased size Right lobe mass from previous study, SVC compression present from previous study Vascular Surgery consulted. Due to patient's malignancy, patient is not a candidate for tPA Heparin 25,000 units q 24 hours via IJ line (2) Pulmonary emboli Current visit: Yes Status: Acute CTA: filling defect in RLL segmental pulmonary arteries -Soft tissue mass mediastinum extending to Right hilum and RUL, severe mass effect on Right lobar and segmental bronchioles -No change in mass size from prior study US venous doppler of upper extremities 06/04/16: demonstrates right subclavian and IJ venous thromboses -This is a new finding compared to US doppler 05/19/16 Continue anticoagulation as above Qualifiers: Pulmonary embolism type: other Chronicity: acute Acute cor pulmonale presence: without acute cor pulmonale Qualified Code(s): I26.99 - Other pulmonary embolism without acute cor pulmonale (3) DVT (deep venous thrombosis) Current visit: Yes Status: Acute see plan as above Qualifiers: Affected thrombotic vein of extremity: other upper extremity vein Laterality: right Chronicity: acute Qualified Code(s): I82.621 - Acute embolism and thrombosis of deep veins of right upper extremity (4) Small cell lung cancer Current visit: No Status: Acute Patient will continue to follow with Dr. Kinney, oncologist Qualifiers: Laterality: right Qualified Code(s): C34.91 - Malignant neoplasm of unspecified part of right bronchus or lung (5) Pleural effusion, right Current visit: No Status: Chronic CTA with evidence of right pleural effusion, chronic (6) Cat scratch of forearm Current visit: Yes Status: Acute Blood cultures x 2 Qualifiers: Encounter type: initial encounter Laterality: right Qualified Code(s): S50.811A - Abrasion of right forearm, initial encounter; W55.03XA - Scratched by cat, initial encounter (7) DVT prophylaxis Current visit: No Status: Acute Internal Medicine - H&P: HPI Chief complaint: face and bilateral hand swelling Admitted From: Emergency Dept Plans for Post Hospital Care: Home History of present illness: Ms. Guzman is a 65 year old female with past medical history significant for small cell lung cancer currently being treated with Cisplatin 60mg/m2 and Etoposide 80mg/m2 day 1-3. She received her 4th round of chemotherapy today and was seen by Dr. Kinney. Nova states that she complained to Dr. Kinney of worsening bilateral hand swelling and facial swelling. She states that this problem has been occurring for weeks. However, swelling is worsening and is associated with weeping clear fluid on bilateral arms. Dr. Kinney was concerned for SVC syndrome and ordered Bilateral Venous US Dopplers to upper extremities. Nova was to complete this visit in outpatient US. However, she failed to reach US today and had to visit ED to be evaluated. Past Med Surg Social Fam HX - Past Medical History Medical history: arthritis, asthma, cancer, COPD, diabetes, GERD, hyperlipidemia , hypertension, other Psychiatric history: anxiety - Past Surgical History Surgical History: , hysterectomy - Social History Smoking Status: Former smoker Smokeless Tobacco Status: No Alcohol use: none Drug use: none - Family History Mother Adopted: No Family Member Ethnicity: Non- Living Status: Hx Family Cardiac Disorders: No Hx Family Respiratory Disorders: No Hx Family Cancer: No Hx Family GI Disorders: No Hx Family Endocrine Disorder: No Hx Family Neuromuscular Disorders: No Hx Family Neurologic Disorders: No Hx Family HEENT Disorders: No Hx Family Autoimmune Disorders: No Internal Medicine - H&P: Meds Aspirin/Calcium Carbonate/Mag [Aspirin Buffered 325 mg Tab] 325 mg PO DAILY 01/25 [History] Lisinopril [Zestril] 10 mg PO DAILY 03/20/16 [History] Bumetanide [Bumex] 0.5 mg PO DAILY #15 tablet 04/19/16 [Rx] Ondansetron HCl [Zofran] 4 mg PO Q6HR PRN #20 tablet 04/19/16 [Rx] Potassium Chloride 20 meq PO DAILY #30 tab.er.prt 04/19/16 [Rx] Prochlorperazine Maleate [Compazine] 10 mg PO Q6HR PRN #30 tablet 04/19/16 [Rx] TraZODone 50 mg PO HS #30 tablet 04/19/16 [Rx] Zolpidem [Ambien] 5 mg PO HS PRN #30 tablet 04/19/16 [Rx] Acetaminophen [Tylenol] 1,000 mg PO Q6HR PRN #120 tablet 05/03/16 [Rx] Ibuprofen [Motrin] 600 mg PO Q8HR PRN #90 tablet 05/03/16 [Rx] Oxycodone HCl 5 mg PO Q6H PRN #20 capsule 05/03/16 [Rx] Albuterol Sulfate [Albuterol Inhaler] 2 puff IH Q4H PRN 05/19/16 [History] Dexamethasone [Decadron] 4 mg PO BID 05/23/16 [History] Docusate [Colace] 100 mg PO BID #100 capsule 05/23/16 [Rx] LORazepam [Ativan] 1 mg PO BID PRN 05/23/16 [History] Nicotine Patch [Nicoderm] 14 mg TD DAILY #14 patch.td24 05/23/16 [Rx] Polyethylene Glycol 3350 [MiraLAX] 17 gm PO DAILY PRN #30 powd.pack 05/23/16 [Rx ] Sennosides [Senna] 17.2 mg PO BID #100 tablet 05/23/16 [Rx] Magic Mouthwash [Magic Mouthwash BLM] 10 ml PO QID PRN #240 ml 05/29/16 [Rx] Allergies Bee Pollen Allergy (Verified 05/29/16 13:05) Anaphylaxis Penicillins Allergy (Verified 05/29/16 13:05) Hives All Systems PM: A 10-system review of systems was performed and is negative for pertinent findings except as documented above in the HPI. - Constitutional Vitals: Temp Pulse Resp BP Pulse Ox 97.3 F L 108 20 130/88 96 06/04/16 22:57 06/04/16 22:57 06/04/16 22:57 06/04/16 22:57 06/04/16 22:57 Pulse ox on 4L General appearance: Present: A&O X 3 (midly confused with questioning), pleasant , obese - Head Additional comments: Significant edema of face and head. Effluvium of hair. - Eye Eye exam: Present: EOMI - Respiratory Respiratory exam: Present: accessory muscle use, decreased breath sounds (Right sided) Additional comments: Increased work of breathing. - Cardiovascular Cardiovascular exam: Present: JVD, RRR, +S1, +S2 - GI/Abdominal GI/Abdominal exam: Present: normal bowel sounds - Extremities Exam Extremities exam: Absent: cyanotic, pedal edema Additional comments: Bilateral hands warm with 2+ non-pitting edema. Bilateral distal forearms warm with 2+ non-pitting edema and weeping clear fluid. Cat scratch noted on right forearm. No erythematous streaking to right arm. No lymphadenopathy or lyphadenitis bilateral axillae. Bilateral lower extremities without edema. - Psychiatric Psychiatric exam: Present: anxious, normal mood Additional comments: Appears to be somewhat confused. When discussing her hospital course and possible return to ECF, patient became very anxious and asked, "Are you telling me to sign a DNR?". I reassured her that we would treat her blood clots, but that it may take a few days. She may have to return to an ECF if she requires therapy or chcf. - Skin Skin exam: Present: warm Internal Med - H&P Results - Labs CBC & Chem 7: 06/04/16 20:55 06/04/16 18:00 Labs: Urine 06/04/16 Range/Units 21:35 Urine Color Yellow (Yellow) Urine Clarity Clear (Clear) Urine pH 5.5 (5.0-8.0) pH Units Ur Specific [place] 1.015 (1.010-1.025) Urine Protein Negative (Neg-Trace) mg/dL Urine Glucose (UA) Normal (Normal) mg/dL - Attending Attestation I examined this patient and my medical decision-making was reviewed with the [employer]/PA/Advanced Practice Nurse/Resident Physician. I agree with the documented findings, disposition and treatment plan as described except to the extent set forth below. <Noble Miller R - Last Filed: 06/06/16 00:25> Date of Encounter: 06/04/16 Internal Medicine - H&P: HPI History of present illness: Ms. Guzman is a 65 year old female All Systems PM: A 10-system review of systems was performed and is negative for pertinent findings except as documented above in the HPI. - Constitutional Vitals: Temp Pulse Resp BP Pulse Ox 97.8 F 115 16 122/73 98 06/05/16 20:24 06/05/16 20:24 06/05/16 20:24 06/05/16 20:24 06/05/16 20:24 Internal Med - H&P Results - Labs CBC & Chem 7: 06/04/16 20:55 06/04/16 18:00 Labs: Urine 06/04/16 Range/Units 21:35 Urine Color Yellow (Yellow) Urine Clarity Clear (Clear) Urine pH 5.5 (5.0-8.0) pH Units Ur Specific [place] 1.015 (1.010-1.025) Urine Protein Negative (Neg-Trace) mg/dL Urine Glucose (UA) Normal (Normal) mg/dL - Attending Attestation 65 Y/O with h/o small cell lung cancer - on chemotherapy - Facial and b/l UE swelling. U/S scan in the ER showed thrombus in the subclavian and internal jugular veins. , CTA chest showed R LL pulmonary emboli. Pt has right sided port -a-cath in place. ER physician discussed with vascular surgeon and invasive intervention was advised. She is now on heparin infusion. Discuss with pt's oncologist re: further management in the AM. h/o cat scratch on the right fore- arm about 4 days ago. Pt denies pain, redness, fever, axillary swelling - no clinical e/o infection of the forearm. No significant axillary adenopathy - no need for antibiotics at this time.
[2016-06-05] MEDS: Acetaminophen 325 MG TABLET PO PRN ×2 (01:24→09:31)
[2016-06-05] MEDS: traZODone 50 MG TABLET PO SCH ×2 (01:24→20:30)
[2016-06-05] MEDS: *HR* LORazepam 1 MG TABLET PO PRN ×2 (01:24→16:59)
[2016-06-05] MEDS: Nicotine 14 MG PATCH.TD24 TD SCH ×2 (01:25→09:31)
[2016-06-05] MEDS ORDERED: Bumetanide 1 MG TABLET PO SCH (09:00)
[2016-06-05] MEDS ORDERED: Pantoprazole 40 MG VIAL IVP SCH (09:00)
[2016-06-05] MEDS: Ondansetron 4 MG/2 ML VIAL IVP PRN (09:29)
--- NOTE | 2016-06-05 10:30 | Electrocardiograph Report ---
[facility] Test Date: 2016-06-04 Pat Name: Nova Guzman Department: 104 Room: 2NE30 Gender: F Hammerer Helper: : 1950 Requested By: Axel Rivers Order Number: [id number] Reading MD: Carlin Wallace MD Measurements Intervals Saline Rate: 102 P: 48 AR: 129 QRS: 42 QRSD: 89 T: 22 QT: 307 QTc: 366 Interpretive Statements SINUS TACHYCARDIA Electronically Signed On 06-05-16 10:29:04 EST by Carlin Wallace MD
[2016-06-05] MEDS ORDERED: ETOPOSIDE IV SCH (13:30)
[2016-06-05] MEDS ORDERED: SODIUM CHLORIDE 0.9% IV SCH (13:30)
[2016-06-05] MEDS ORDERED: Prochlorperazine 10 MG/2 ML VIAL IV PRN (13:34)
[2016-06-05] MEDS ORDERED: Famotidine 20 MG/2 ML VIAL IV PRN (13:34)
[2016-06-05] MEDS ORDERED: *HR* LORazepam 2 MG/ML VIAL IV PRN (13:35)
[2016-06-05] MEDS ORDERED: Dexamethasone 10 MG/ML VIAL IV PRN (13:35)
[2016-06-05] MEDS ORDERED: 0.9 % Sodium Chloride 500 ML IVC SCH (13:45)
[2016-06-05] MEDS ORDERED: Dexamethasone 10 MG/ML VIAL IV ONE (14:00)
[2016-06-05] MEDS ORDERED: *HR* Enoxaparin 40 MG/0.4 ML SYRINGE SQ ONE (14:30)
--- NOTE | 2016-06-05 14:48 | Event Note ---
<Marcelo Antunez - Last Filed: 06/05/16 14:46> Date of Encounter: 06/05/16 Time of Encounter: 09:00 Mrs. Thomas Dove female has been seen and evaluated patient bedside this morning. She is tearful and concerned about her extensive blood clots and PE. She denies any chest pain or discomfort at this time. She is very tearful and discusses her current medical state concern for her lung cancer and current treatment regimen. She expresses concern about post discharge and if she needs to give herself Lovenox shots that she might not be able to give herself a shot. She is concerned that home health is leaving her and she feels she needs continued assistance in her current medical state. She wishes to have a abrasive grader see her. Vitals were reviewed: Patient is afebrile, tachycardic, respiratory rate of 16 blood pressure 119/66, 90% on 4 L oxygen nasal. Laboratory results: WBC 16.7, hemoglobin 10.0, hematocrit 32.1, platelets 428, neutrophils 17.1, lymphocyte 0.4, PTT 40.6, sodium 142, potassium 4.1, chloride 102, CO2 28, BUN 31, creatinine 0.76 and GFR greater than 60. Glucose 128, osmolality 302. UA was without abnormality. Physical examination: Gen. patient is alert awake oriented, diffuse facial swelling secondary to chemotherapy and steroids, tearful. Cardiac: Chest symmetric bilateral chronic respiratory effort, regular rate and rhythm with systolic murmur grade 2/6. Respiratory: Clear to auscultation bilateral lung junior Abdomen: Soft nontender palpation positive bowel sounds Chest: Patient is a external port in her upper right subclavian midline is not erythematous with surrounding vascular congestion. Port in her right lateral rib cage without signs of erythema or edema. Extremities: Diffuse anasarca Assessment and plan 1. Extensive DVT and pulmonary embolism right lower lobe. Patient is hypoxic requiring 4 L oxygen, tachycardic, CTA demonstrates pulmonary embolism and right lower lobe segment pulmonary arteries. Lung mass unchanged from previous imaging. Right-sided pleural effusion Venous Doppler performed 06/04/2016 demonstrates positive for SVT of internal jugular vein, positive for DVT of axillary vein and brachial vein right upper extremity. Positive for DVT of axillary vein and brachial left upper extremity. - Patient was on heparin drip switched to Lovenox 1 mg/kg twice a day - Hematology oncology consult and given patient's lung cancer history. 2. Small cell lung cancer Patient follows with [facility]ology oncology, and consult during inpatient stay. Patient to receive chemotherapy during her inpatient stay. 3. Scratches to right dorsal forearm: No erythema or edema, clear drainage. No significant changes since H&P this morning. <Stan Kaye - Last Filed: 06/06/16 17:24> Date of Encounter: 06/06/16 Pt seen on 06/05/16 She was admitted earlier today with probable SVC syndrome. She is tearful and frightened. Currently on heparin drip - changing to Lovenox. Oncology to see. Continue plan as ordered.
[2016-06-05] MEDS ORDERED: Sennosides 8.6 MG TABLET PO PRN (15:21)
[2016-06-05] MEDS: *HR* Enoxaparin 80 MG/0.8 ML SYRINGE SQ SCH (16:58)
[2016-06-05] MEDS: *HR* OxyCODONE Immed Rel 5 MG TABLET PO PRN (20:31)
[2016-06-06 05:27] LABS: Hematocrit 29.8 % (35.3-44.9); Hemoglobin 9.5 g/dL (11.5-15.4); Immature Granulocytes % 1.1 % (0-4); Lymphocytes # 0.7 K/mcL (0.6-4.6); Lymphocytes % 8.3 %; Mean Corpuscular HGB Conc 31.9 g/dL (31.6-35.5); Mean Corpuscular Hemoglobin 29.4 pg (28.0-33.3); Mean Corpuscular Volume 92.3 fL (83.0-100.0); Mean Platelet Volume 9.2 fL (9.4-12.4); Monocytes # 0.6 K/mcL (0.0-1.3); Neutrophils # 7.1 K/mcL (1.6-8.9); Platelet Count 404 K/mcL (140-400); Red Blood Count 3.23 M/mcL (3.82-4.97); Red Cell Distribution Width 17.9 % (11.5-14.5); Segmented Neutrophils % 83.6 %
[2016-06-06 05:50] LABS: Alanine Aminotransferase 25 Units/L (0-55); Albumin 2.5 g/dL (3.5-5.0); Albumin/Globulin Ratio 0.8 (1.1-2.2); Alkaline Phosphatase 87 Units/L (38-126); Aspartate Amino Transferase 19 Units/L (5-34); BUN/Creatinine Ratio 47 (6-26); Bilirubin,Total 0.2 mg/dL (0.2-1.2); Blood Urea Nitrogen 33 mg/dL (7-20); Calcium 9.2 mg/dL (8.6-10.8); Carbon Dioxide 29 mEq/L (19-29); Chloride 101 mEq/L (98-109); Globulin 3.3 g/dL (2.4-3.5); Glucose 113 mg/dL (70-99); Osmolality,Calculated 296 (280-300); Potassium 4.3 mEq/L (3.5-4.5); Sodium 139 mEq/L (136-145); Total Protein 5.8 g/dL (6.0-8.3); eGFR For African Americans > 60 (> 60); eGFR For Non-African Americans > 60 (> 60)
[2016-06-06] MEDS: *HR* Enoxaparin 80 MG/0.8 ML SYRINGE SQ SCH ×2 (06:04→17:37)
--- NOTE | 2016-06-06 09:24 | Internal Med Progress Note ---
<Marcelo Antunez - Last Filed: 06/06/16 13:58> Date of Encounter: 06/06/16 Time of Encounter: 09:17 - Assessment and plan (1) Pulmonary emboli Current Visit: Yes Status: Acute Assessment and plan: Patient is hypoxic requiring 4 L oxygen, tachycardic, CTA demonstrates pulmonary embolism and right lower lobe segment pulmonary arteries. Lung mass unchanged from previous imaging. Right-sided pleural effusion. Patient was switched from IV heparin to subcutaneous Lovenox 1 mg/kg yesterday. Plan: - Continue Lovenox 1 mg/kg as discussed with hematology oncology team. - Echocardiogram has been ordered with results pending. Qualifiers: Pulmonary embolism type: other Chronicity: acute Acute cor pulmonale presence: without acute cor pulmonale Qualified Code(s): I26.99 - Other pulmonary embolism without acute cor pulmonale (2) Small cell lung cancer Current Visit: No Status: Acute Assessment and plan: Patient known history of small cell lung cancer is followed by [facility] hematology oncology with known large mediastinal mass. Reading from CTA chest: large infiltrative soft tissue mass in the mediastinum extending to the right hilar region and right upper lobe. The mass measures approximately 10.0 x 8.5 cm, not significantly changed when compared to the previous exam. There is severe mass effect on the right lobar and segmental bronchioles which are severely narrowed. There is also mass effect on the vascular structures of the middle mediastinum due to enlarged conglomerate mediastinal lymph nodes. Plan: - Hematology oncology team has been consulted and they are following the patient during inpatient stay. - Patient underwent radiation therapy today at the cancer center. Qualifiers: Laterality: right Qualified Code(s): C34.91 - Malignant neoplasm of unspecified part of right bronchus or lung (3) Superior vena cava compression syndrome Current Visit: Yes Status: Acute Assessment and plan: There is concern for SVC syndrome as the patient has had increased facial swelling vascular congestion on her upper chest and known large mediastinal mass. CTA findings: mass effect on the vascular structures of the middle mediastinum due to enlarged conglomerate mediastinal lymph nodes. The caliber of the SVC is similar to the previous exam. Patency of the SVC cannot be assessed due to nonopacification of the venous structures. If there is concern for SVC thrombus , echocardiogram or upper extremity venous ultrasound could be obtained for further evaluation. Venous doppler upper extremity: Pt POSITIVE for SVT of Internal jugular vein, POSITIVE for DVT of axillary vein and brachial vein right upper extremity Pt POSITIVE for SVT Internal jugular vein, POSITIVE for DVT of axillary vein and brachial left upper extremity. Plan: - Hematology oncology team involved in patient's care. - She has undergone radiation therapy this morning. Awaiting further recommendations from hematology oncology team. - Patient currently anticoagulated. (4) Cat scratch of forearm Current Visit: Yes Status: Acute Assessment and plan: Patient has recent cat scratch to dorsal right forearm. Today there is no drainage no erythema no signs of cellulitis or erythasma. Laboratory results are improved compared to admission. No signs of leukocytosis or neutropenia or neutrophilia. Plan: - Continue monitoring daily. Qualifiers: Encounter type: initial encounter Laterality: right Qualified Code(s): S50.811A - Abrasion of right forearm, initial encounter; W55.03XA - Scratched by cat, initial encounter (5) Constipation Current Visit: No Status: Chronic Assessment and plan: Patient has known history of constipation requiring disimpaction. Patient continued on home bowel regimen. Qualifiers: Constipation type: slow transit constipation Qualified Code(s): K59.01 - Slow transit constipation (6) DVT prophylaxis Current Visit: No Status: Acute Assessment and plan: Patient receiving Lovenox injections for PE and DVT coverage. - Subjective Interval history: Mrs. Guzman 65 year old female seen and evaluated patient bedside this morning, she is alert awake interactive and denies any pain today. She says she is a little bit nervous about undergoing radiation today and concern for her PE, DVTs. She denies any chest pain or change in vision and his shortness of breath or difficulty breathing or swallowing, nausea vomiting or diarrhea. She does mention she has a history of constipation requiring disimpaction without her bowel regimen. She requests more training of how to inject her Lovenox prior to discharge. Discussing her facial swelling she says it has become worse in the last couple of days. - Constitutional Vitals: Temp Pulse Resp BP Pulse Ox 98.7 F 93 18 140/71 98 06/06/16 04:48 06/06/16 04:48 06/06/16 04:48 06/06/16 04:48 06/06/16 04:48 General appearance: Present: A&O X 3 (midly confused with questioning), pleasant , obese - Head Additional comments: Patient demonstrates significant facial swelling bilateral that is equal with periorbital swelling without signs of erythema edema or ocular restriction. - Eye Eye exam: Present: PERRL, conjuntiva pink, sclera anicteric Pupils: Present: PERRL - ENT ENT exam: Present: mucous membranes moist - Neck Neck exam general surgery: Present: supple, trachea midline - Respiratory Additional comments: Respirations are clear to auscultation in all lung junior with the exception for diminished breath sounds with crackles in right lung base. - Cardiovascular Additional comments: Chest symmetric bilateral chronic respiratory effort, regular rate and rhythm with systolic murmur grade 2/6. Patient is a external port in her upper right subclavian midline is not erythematous with surrounding vascular congestion. Port in her right lateral rib cage without signs of erythema or edema. - GI/Abdominal GI/Abdominal exam: Present: normal bowel sounds, soft - Extremities Exam Additional comments: Diffuse anasarca - Neurological Exam Neurological exam: Present: alert, oriented X3 - Psychiatric Psychiatric exam: Present: anxious Internal Medicine: Result - Labs CBC & Chem 7: 06/06/16 05:04 06/06/16 05:04 Labs: Short CBC 06/06/16 Range/Units 05:04 WBC 8.5 (4.3-11.1) K/mcL Hgb 9.5 L (11.5-15.4) g/dL Hct 29.8 L (35.3-44.9) % Plt Count 404 H (140-400) K/mcL Neutrophils # 7.1 (1.6-8.9) K/mcL BMP 06/06/16 05:04 Sodium 139 Potassium 4.3 Chloride 101 Carbon Dioxide 29 BUN 33 H Creatinine 0.70 Glucose 113 H Calcium 9.2 Liver Function 06/06/16 Range/Units 05:04 Total Bilirubin 0.2 (0.2-1.2) mg/dL AST 19 (5-34) Units/L ALT 25 (0-55) Units/L Alkaline Phosphatase 87 (38-126) Units/L Albumin 2.5 L (3.5-5.0) g/dL - ABG Interpretation ABG results: PT/INR, D-dimer PT 11.7 Seconds (9.4-12.1) 06/04/16 18:00 Consult Discharge Plan - Plan Referrals: Carly,Biplav, MD [Primary Care Provider] - <Stan Kaye - Last Filed: 06/06/16 18:39> Date of Encounter: 06/06/16 - Assessment and plan (1) Superior vena cava compression syndrome Current Visit: Yes Status: Acute (2) Pulmonary emboli Current Visit: Yes Status: Acute Qualifiers: Pulmonary embolism type: other Chronicity: acute Acute cor pulmonale presence: without acute cor pulmonale Qualified Code(s): I26.99 - Other pulmonary embolism without acute cor pulmonale (3) Small cell lung cancer Current Visit: Yes Status: Acute Qualifiers: Laterality: right Qualified Code(s): C34.91 - Malignant neoplasm of unspecified part of right bronchus or lung (4) Type 2 diabetes mellitus Current Visit: Yes Status: Chronic Qualifiers: Diabetes mellitus complication status: with hyperglycemia Diabetes mellitus termite control technician insulin use: with termite control technician use Qualified Code(s): E11.65 - Type 2 diabetes mellitus with hyperglycemia; Z79.4 - keno terminal operator (current) use of insulin (5) Pleural effusion, right Current Visit: Yes Status: Chronic (6) Chronic respiratory failure Current Visit: Yes Status: Chronic Qualifiers: Respiratory failure complication: hypoxia Qualified Code(s): J96.11 - Chronic respiratory failure with hypoxia - Constitutional Vitals: Temp Pulse Resp BP Pulse Ox 98.7 F 93 16 140/71 100 06/06/16 04:48 06/06/16 04:48 06/06/16 17:12 06/06/16 04:48 06/06/16 17:12 Internal Medicine: Result - Labs CBC & Chem 7: 06/06/16 05:04 06/06/16 05:04 Labs: Short CBC 06/06/16 Range/Units 05:04 WBC 8.5 (4.3-11.1) K/mcL Hgb 9.5 L (11.5-15.4) g/dL Hct 29.8 L (35.3-44.9) % Plt Count 404 H (140-400) K/mcL Neutrophils # 7.1 (1.6-8.9) K/mcL BMP 06/06/16 05:04 Sodium 139 Potassium 4.3 Chloride 101 Carbon Dioxide 29 BUN 33 H Creatinine 0.70 Glucose 113 H Calcium 9.2 Liver Function 06/06/16 Range/Units 05:04 Total Bilirubin 0.2 (0.2-1.2) mg/dL AST 19 (5-34) Units/L ALT 25 (0-55) Units/L Alkaline Phosphatase 87 (38-126) Units/L Albumin 2.5 L (3.5-5.0) g/dL - ABG Interpretation ABG results: PT/INR, D-dimer PT 11.7 Seconds (9.4-12.1) 06/04/16 18:00 - Attending Attestation I examined this patient and my medical decision-making was reviewed with the Resident Physician on 06/06/16. I agree with the documented findings, disposition and treatment plan as described except to the extent set forth below. Ms. Guzman is currently admitted for PE and probable SVC syndrome. She is high risk due to the potential of worsening respiratory symptoms and coagulopathy. Ms. Guzman just returned from radiation area. She is tearful and worried. Denies pain. No cough. Swelling is about the same. No GI symptoms. She is to have 12 more radiation treatments per her schedule. Exam alert. Tearful Swelling about the same Heart reg Lungs diminished I/P 1. Probable SVC syndrome - radiation started 2. PE 3. Lung cancer 4. Constipation Further diagnoses and plan as above.
[2016-06-06] MEDS: Nicotine 14 MG PATCH.TD24 TD SCH (09:30)
[2016-06-06] MEDS: Acetaminophen 325 MG TABLET PO PRN (16:25)
--- NOTE | 2016-06-06 18:27 | Oncology Inp Consult Note ---
Date of Encounter: 06/06/16 Time of Encounter: 18:32 - Data of Consult Patient: known to practice within the last 3 years Requesting Physician: Stan Kaye DO Primary Care Provider: Lew Carroll MD - Consult Narrative Reason for consult: Small cell lung cancer, SVC syndrome History of present illness: Ms. Guzman is a 65 year old female hospitalized with bilateral upper extremity edema. Swelling. Venous Doppler 06/04/2016 demonstrated acute DVT DVT in the right upper extremity and right internal jugular vein. CT angiogram chest showed acute PE right lower lobe pulmonary arteries. Right venous catheter present in the SVC. Non-opacification of SVC. Right upper lobe tumor compressing SVC. Well overall right upper lobe mass significantly not changed from scan in April 2016. Her response to chemotherapy is flat and I expect more response from chemotherapy Discussed at thoracic tumor Board 06/06/2016. Her tumor is possibly compressing SVC contributing to collapse and SVC syndrome and thrombus. The decision is to leave the port in place. Removing the port may cause further collapse of SVC It is okay to use the port Discussed with Dr. Ellison and we will proceed with radiation to the right upper lobe mass Oncological history Diagnosis: small cell lung cancer. T4, NX, M1 with malignant right pleural effusion stage IV Progressive shortness of breath for last 3 months. She developed hemoptysis and failed outpatient antibiotics. Was hospitalized 03/20/2016. CT angiogram chest 03/20/2016 showed a 7 x 9.4 x 9.6 cm and atelectasis of right upper lobe. Supraclavicular lymph node 1.7 cm and right paratracheal lymph node 2.2 cm. large right pleural effusion and she had a thoracentesis on 03/21/2016 400 mL effusion fluid drained Effusion cytology showed malignant cells Ki-67 more than 70% of cells She was intubated because of acute respiratory failure. Bronchoscopy 2015 showed atelectasis in the right upper lobe Endobronchial infiltrative ulcerated mass in the right upper lobe Bronchoscopy biopsy of the right upper lobe, subcarinal lymph node and right hilar mass while showed small cell carcinoma. Synaptophysin TTF-1 positive. OscarFocally positive. Ki-67 more than 70%. CK 7 and CK 5 and 6-negative CT abdomen showed retrocrural lymph node about 1.5 cm. Also left adrenal nodule 3 cm. This could represent metastasis First cycle of chemotherapy was given on an emergency basis as an inpatient. Cisplatin 60 mg/m day 1, etoposide 60 mg/m day one and 2 and 03/28/2016. When she tolerated it well. Uric acid low at 1.8. Renal function normal Cycle 2 on 04/22/2016. Cisplatin 60 mg/m and etoposide increased to 80 mg/m day 1-3. Neulasta day 4. After each chemotherapy she gets hospitalized with shortness of breath. Cycle 4 chemotherapy started 06/03/2016. Past Med Surg Social Fam HX - Past Medical History Medical history: arthritis, asthma, cancer, COPD, diabetes, GERD, hyperlipidemia , hypertension, other Psychiatric history: anxiety - Past Surgical History Surgical History: , hysterectomy - Social History Smoking Status: Former smoker Smokeless Tobacco Status: No Alcohol use: none Drug use: none - Family History Mother Adopted: No Family Member Ethnicity: Non- Living Status: Hx Family Cardiac Disorders: No Hx Family Respiratory Disorders: No Hx Family Cancer: No Hx Family GI Disorders: No Hx Family Endocrine Disorder: No Hx Family Neuromuscular Disorders: No Hx Family Neurologic Disorders: No Hx Family HEENT Disorders: No Hx Family Autoimmune Disorders: No Medications and Allergies Aspirin/Calcium Carbonate/Mag [Aspirin Buffered 325 mg Tab] 325 mg PO DAILY 01/25 [History] Lisinopril [Zestril] 10 mg PO DAILY 03/20/16 [History] Bumetanide [Bumex] 0.5 mg PO DAILY #15 tablet 04/19/16 [Rx] Ondansetron HCl [Zofran] 4 mg PO Q6HR PRN #20 tablet 04/19/16 [Rx] Potassium Chloride 20 meq PO DAILY #30 tab.er.prt 04/19/16 [Rx] Prochlorperazine Maleate [Compazine] 10 mg PO Q6HR PRN #30 tablet 04/19/16 [Rx] TraZODone 50 mg PO HS #30 tablet 04/19/16 [Rx] Zolpidem [Ambien] 5 mg PO HS PRN #30 tablet 04/19/16 [Rx] Acetaminophen [Tylenol] 1,000 mg PO Q6HR PRN #120 tablet 05/03/16 [Rx] Ibuprofen [Motrin] 600 mg PO Q8HR PRN #90 tablet 05/03/16 [Rx] Oxycodone HCl 5 mg PO Q6H PRN #20 capsule 05/03/16 [Rx] Albuterol Sulfate [Albuterol Inhaler] 2 puff IH Q4H PRN 05/19/16 [History] Dexamethasone [Decadron] 4 mg PO BID 05/23/16 [History] Docusate [Colace] 100 mg PO BID #100 capsule 05/23/16 [Rx] LORazepam [Ativan] 1 mg PO BID PRN 05/23/16 [History] Nicotine Patch [Nicoderm] 14 mg TD DAILY #14 patch.td24 05/23/16 [Rx] Polyethylene Glycol 3350 [MiraLAX] 17 gm PO DAILY PRN #30 powd.pack 05/23/16 [Rx ] Sennosides [Senna] 17.2 mg PO BID #100 tablet 05/23/16 [Rx] Magic Mouthwash [Magic Mouthwash BLM] 10 ml PO QID PRN #240 ml 05/29/16 [Rx] Allergies Bee Pollen Allergy (Verified 05/29/16 13:05) Anaphylaxis Penicillins Allergy (Verified 05/29/16 13:05) Hives Review of systems: Baseline shortness of breath which is slightly worse. No fever chills. Poor venous access because of bilateral upper extremity edema Oncology - Exam - Constitutional Vitals: Temp Pulse Resp BP Pulse Ox 98.7 F 93 16 140/71 100 06/06/16 04:48 06/06/16 04:48 06/06/16 17:12 06/06/16 04:48 06/06/16 17:12 Exam: GENERAL: Alert and oriented, slightly anxious Mental Status: She does have some crying spells HEENT: Sclerae anicteric. No mucositis or thrush. Swelling in both the proximity and face Skin: No rashes or petechiae. No evidence of skin malignancy Lymph nodes: No cervical, supraclavicular, axillary, or inguinal adenopathy. Lungs: Clear to auscultation and percussion bilaterally. Cardiovascular: Regular rate and rhythm. No gallops, murmurs, or rubs. Abdomen: Soft, nontender; no organomegaly or masses palpable. Extremities: No edema. No calf swelling or tenderness. No joint deformity. Neurologic: Alert, cranial nerves II-XII intact; normal gait; no focal weakness or sensory abnormalities. Oncology - Results - Labs Labs: Short CBC 06/06/16 Range/Units 05:04 WBC 8.5 (4.3-11.1) K/mcL Hgb 9.5 L (11.5-15.4) g/dL Hct 29.8 L (35.3-44.9) % Plt Count 404 H (140-400) K/mcL Neutrophils # 7.1 (1.6-8.9) K/mcL BMP 06/06/16 05:04 Sodium 139 Potassium 4.3 Chloride 101 Carbon Dioxide 29 BUN 33 H Creatinine 0.70 Glucose 113 H Calcium 9.2 Liver Function 06/06/16 Range/Units 05:04 Total Bilirubin 0.2 (0.2-1.2) mg/dL AST 19 (5-34) Units/L ALT 25 (0-55) Units/L Alkaline Phosphatase 87 (38-126) Units/L Albumin 2.5 L (3.5-5.0) g/dL - Impressions Assessment and plan 1. SVC syndrome. This got worse after right internal jugular port placement. Also tumor response has become flat for chemotherapy. After reviewing CAT scans and the tumor board its likely that the tumor is causing SVC compression and collapse contributing to thrombosis Lovenox 1 mg subcutaneous twice a day. Renal function normal. Discussed with Dr. Ellison and proceed with palliative radiation to the right chest wall mass 2. Stage IV small cell lung cancer with malignant pleural effusion I suspect her disease is getting upper skagit refractory. We will continue current treatment. She missed day 3 etoposide cycle 4 because of SVC syndrome. We will give Neulasta Consult Discharge Plan - Plan Referrals: Lew Carroll MD [Primary Care Provider] -
[2016-06-06] MEDS: traZODone 50 MG TABLET PO SCH (21:29)
[2016-06-07 04:11] LABS: Alanine Aminotransferase 29 Units/L (0-55); Albumin 2.5 g/dL (3.5-5.0); Albumin/Globulin Ratio 0.8 (1.1-2.2); Alkaline Phosphatase 83 Units/L (38-126); Aspartate Amino Transferase 27 Units/L (5-34); BUN/Creatinine Ratio 42 (6-26); Bilirubin,Total 0.4 mg/dL (0.2-1.2); Blood Urea Nitrogen 28 mg/dL (7-20); Calcium 9.2 mg/dL (8.6-10.8); Carbon Dioxide 29 mEq/L (19-29); Chloride 100 mEq/L (98-109); Globulin 3.1 g/dL (2.4-3.5); Glucose 111 mg/dL (70-99); Hemoglobin 9.3 g/dL (11.5-15.4); Osmolality,Calculated 296 (280-300); Potassium 4.4 mEq/L (3.5-4.5); Sodium 140 mEq/L (136-145); Total Protein 5.6 g/dL (6.0-8.3); eGFR For African Americans > 60 (> 60); eGFR For Non-African Americans > 60 (> 60)
[2016-06-07 04:12] LABS: Basophils % 0.1 %; Hematocrit 28.9 % (35.3-44.9); Immature Granulocytes % 2.1 % (0-4); Lymphocytes # 0.5 K/mcL (0.6-4.6); Lymphocytes % 1.2 %; Mean Corpuscular HGB Conc 32.2 g/dL (31.6-35.5); Mean Corpuscular Hemoglobin 29.8 pg (28.0-33.3); Mean Corpuscular Volume 92.6 fL (83.0-100.0); Mean Platelet Volume 9.5 fL (9.4-12.4); Monocytes # 0.7 K/mcL (0.0-1.3); Monocytes % 1.7 %; Platelet Count 361 K/mcL (140-400); Red Blood Count 3.12 M/mcL (3.82-4.97); Red Cell Distribution Width 18.1 % (11.5-14.5); Segmented Neutrophils % 94.9 %
[2016-06-07 04:19] LABS: Neutrophils # 38.2 K/mcL (1.6-8.9)
[2016-06-07 04:34] LABS: Platelet Estimate Normal (Normal)
[2016-06-07] MEDS: *HR* Enoxaparin 80 MG/0.8 ML SYRINGE SQ SCH ×2 (06:53→19:45)
--- NOTE | 2016-06-07 09:05 | ECHO - Doppler Report ---
Echocardiogram Name: Nova Guzman Date of Study: 06/06/2016 Date: 1950 Ht: 61.0 in Medical Record#: [id number] Age: 65 Wt: 145.0 lb Gender: Female BSA: 1.65 Order #: [id number] Location: [facility] Room #: 2NE30 Reading Physician: José Miguel Leach DO, ROLLY, DAVE RAVI Infection Control Manager: Evelyn Mixon RDCS Ordering Physician: Marcelo Antunez DO Primary Physician: Lew Carroll MD Indications: Pulmonary embolus Impressions: LVEF >70%. Normal LV chamber size, wall thickness and function. Mild left ventricular diastolic dysfunction. Normal right ventricular structure and function. No evidence of pulmonary hypertension. RVSP not well obtained and could be underestimated. No significant valvular dysfunction. Left Ventricular Wall Motion: Rest Echo Findings The apex, apical inferior, mid inferior, basal inferior, apical anterior, mid anterior, basal anterior, apical septal, mid inferior septal, basal inferior septal, apical lateral, mid anterior lateral, basal anterior lateral, mid anterior septal, mid inferior lateral, basal anterior septal and basal inferior lateral avalos were hyperkinetic. Findings: Study Quality * Technically adequate exam. ECG Findings * Sinus tachycardia. Left Ventricle * LVEF >70%. * Normal LV chamber size, wall thickness and function. * Mild left ventricular diastolic dysfunction. Right Ventricle * Normal right ventricular structure and function. Left Atrium * Normal left atrial size. Right Atrium * Normal right atrial size. Interatrial Septum * Interatrial septum not well evaluated. Aortic Valve * Trileaflet aortic valve. * Focal area of calcification between the non and left coronary cusps. * Mildly sclerotic aortic valve leaflets. * No aortic stenosis. * No aortic regurgitation. Mitral Valve * Normal mitral valve structure and function. * No mitral stenosis. * No mitral regurgitation. Tricuspid Valve * Normal tricuspid valve structure and function. * Trace tricuspid regurgitation. * No evidence of pulmonary hypertension. RVSP not well obtained and could be underestimated. Pulmonic Valve * Pulmonic valve not well visualized. * No pulmonic regurgitation. Aorta * Normally sized aortic root. Pericardium * The pericardium appears normal. IVC * Normal IVC dimensions and inspiratory collapse. Pulmonary Artery * Normal visualized portions of the main pulmonary artery. History Hypertension Diabetes Hypercholesteremia 03/21/2016 a Previous Echo was performed. Measurements: 2D Normal Values RVIDd: 2.47 cm <2.7 cm IVSd: .94 cm 0.6 - 1.0 cm LVIDd: 3.96 cm 3.7 - 5.6 cm LVPWd: 1.06 cm 0.6 - 1.1 cm LVIDs: 2.18 cm 1.5 - 3.6 cm AO: 3.10 cm < 4.0 cm LA: 3.20 cm 2.0 - 4.0cm %FS: 44.90 cm >25 % LVOT Diam: 2.60 cm LA volume: 26 Mitral Valve Peak E:.78 m/sec Peak A:.92 m/sec E/A Ratio:0.8 Peak E' Lat Sregei:6.96 cm/s Peak E' Med Sergei:4.1 cm/s E/E' Lat Ratio:11.2 E/E' Med Ratio:19 Aortic Valve AI pressure Half-time: 442.00 msec Tricuspid Valve TV Regurg Peak Grad: 11.00mmHg TV Regurg Peak Sergei: 1.69m/sec Updated by José Miguel Leach DO, FACTodd, BREONNA, DAVE on 06/07/2016 8:59:39 AM electronically signed on 06/07/2016 9:00:25 AM with status of Final Wall Motion Silva: 1=Normal, 2=Hypokinesis, 3=Akinesis, 4=Dyskinesis, 5=Aneurysmal, 6=Hyperkinetic, X=Not Visualized (Blank)=Missing
[2016-06-07] MEDS: Nicotine 14 MG PATCH.TD24 TD SCH (09:51)
[2016-06-07] MEDS: levoFLOXacin 500 MG TABLET PO SCH (11:27)
--- NOTE | 2016-06-07 13:07 | Internal Med Progress Note ---
<Marcelo Antunez - Last Filed: 06/07/16 13:03> Date of Encounter: 06/07/16 Time of Encounter: 08:20 - Assessment and plan (1) Pulmonary emboli Current Visit: Yes Status: Acute Assessment and plan: Stable. Patient continues to require 4 L oxygen, tachycardic, CTA demonstrates pulmonary embolism and right lower lobe segment pulmonary arteries. Lung mass unchanged from previous imaging. Right-sided pleural effusion. Patient was switched from IV heparin to subcutaneous Lovenox 1 mg/kg yesterday. Echocardiogram from 06/06/2016 demonstrates LVEF greater than 70%, normal left ventricular chamber size wall thickness and function. Mild left ventricular diastolic dysfunction, normal right ventricular structure and function. No evidence of pulmonary hypertension. RVSP not well obtained. Plan: - Continue Lovenox 1 mg/kg as discussed with hematology oncology team. Qualifiers: Pulmonary embolism type: other Chronicity: acute Acute cor pulmonale presence: without acute cor pulmonale Qualified Code(s): I26.99 - Other pulmonary embolism without acute cor pulmonale (2) Small cell lung cancer Current Visit: Yes Status: Acute Assessment and plan: Patient known history of small cell lung cancer is followed by [place] [facility] oncology with known large mediastinal mass. Reading from CTA chest: large infiltrative soft tissue mass in the mediastinum extending to the right hilar region and right upper lobe. The mass measures approximately 10.0 x 8.5 cm, not significantly changed when compared to the previous exam. There is severe mass effect on the right lobar and segmental bronchioles which are severely narrowed. There is also mass effect on the vascular structures of the middle mediastinum due to enlarged conglomerate mediastinal lymph nodes. Plan: - Hematology oncology team following the patient during inpatient stay. - Patient underwent radiation therapy today at the cancer center, she is planned for twice a day radiation therapy at the cancer center. Qualifiers: Laterality: right Qualified Code(s): C34.91 - Malignant neoplasm of unspecified part of right bronchus or lung (3) Superior vena cava compression syndrome Current Visit: Yes Status: Acute Assessment and plan: Patient with SVC syndrome demonstrate improvement post radiation therapy. Facial swelling is improved today. CTA findings: mass effect on the vascular structures of the middle mediastinum due to enlarged conglomerate mediastinal lymph nodes. The caliber of the SVC is similar to the previous exam. Patency of the SVC cannot be assessed due to nonopacification of the venous structures. If there is concern for SVC thrombus , echocardiogram or upper extremity venous ultrasound could be obtained for further evaluation. Venous doppler upper extremity: Pt POSITIVE for SVT of Internal jugular vein, POSITIVE for DVT of axillary vein and brachial vein right upper extremity Pt POSITIVE for SVT Internal jugular vein, POSITIVE for DVT of axillary vein and brachial left upper extremity. Plan: - Hematology oncology team involved in patient's care. - She has undergone radiation therapy this morning. - Patient currently anticoagulated. (4) Cat scratch of forearm Current Visit: Yes Status: Acute Assessment and plan: Patient has recent cat scratch to dorsal right forearm. Today there is clear serous drainage in the setting of significantly edematous upper extremities. Given the patient is immunocompromised, will treat with by mouth medication. Plan: - Levaquin daily for total of 10 days. Qualifiers: Encounter type: initial encounter Laterality: right Qualified Code(s): S50.811A - Abrasion of right forearm, initial encounter; W55.03XA - Scratched by cat, initial encounter (5) Constipation Current Visit: No Status: Chronic Assessment and plan: Patient has known history of constipation requiring disimpaction. Patient continued on home bowel regimen. Qualifiers: Constipation type: slow transit constipation Qualified Code(s): K59.01 - Slow transit constipation (6) Leukocytosis Current Visit: Yes Status: Acute Assessment and plan: Patient has a leukocytosis of 40.2 and a neutrophil count of 38.2. She received Neupogen injection yesterday which is likely the cause of this elevation. She is asymptomatic denies any fevers chills, pain or discomfort. Plan: - Continue to monitor with daily labs. Qualifiers: Qualified Code(s): D72.829 - Elevated white blood cell count, unspecified (7) DVT prophylaxis Current Visit: No Status: Acute Assessment and plan: Patient receiving Lovenox injections for PE and DVT coverage. - Subjective Interval history: Mrs. Guzman 65 year old female seen and evaluated patient bedside this morning, she is alert awake interactive and denies any pain today. She denies any chest pain or change in vision and his shortness of breath or difficulty breathing or swallowing, nausea vomiting or diarrhea. She does mention she has a history of constipation requiring disimpaction without her bowel regimen. She maintains her appetite and was eating breakfast after her radiation therapy this morning. She denies any pain, pruritus, fevers, chills or new concerning symptoms. She is open to post hospital ECF care but does not feel that she would be able to tolerate physical therapy at this time. - Constitutional Vitals: Temp Pulse Resp BP Pulse Ox 98.0 F 105 16 129/69 97 06/07/16 11:00 06/07/16 11:00 06/07/16 11:00 06/07/16 11:00 06/07/16 11:00 General appearance: Present: A&O X 3 (midly confused with questioning), pleasant , obese - Head Additional comments: Patient's facial swelling is significantly improved postradiation therapy. Right side improved more than left. - Eye Eye exam: Present: PERRL, conjuntiva pink, sclera anicteric Pupils: Present: PERRL - Neck Neck exam general surgery: Present: normal inspection, supple, trachea midline. Absent: lymphadenopathy - Respiratory Additional comments: Respirations are clear to auscultation in all lung junior with the exception for diminished breath sounds with crackles in right lung base. - Cardiovascular Additional comments: Chest symmetric bilateral chronic respiratory effort, regular rate and rhythm with systolic murmur grade 2/6. Patient is a external port in her upper right subclavian midline is not erythematous with surrounding vascular congestion. Port in her right lateral rib cage without signs of erythema or edema. - GI/Abdominal GI/Abdominal exam: Present: normal bowel sounds, soft - Extremities Exam Additional comments: Diffuse anasarca, patient has clear weeping drainage from distal right upper extremity. - Neurological Exam Neurological exam: Present: alert, oriented X3, no focal deficits - Psychiatric Psychiatric exam: Present: anxious Internal Medicine: Result - Labs CBC & Chem 7: 06/07/16 03:40 06/07/16 03:40 Labs: Short CBC 06/07/16 Range/Units 03:40 WBC 40.2 H* D (4.3-11.1) K/mcL Hgb 9.3 L (11.5-15.4) g/dL Hct 28.9 L (35.3-44.9) % Plt Count 361 (140-400) K/mcL Neutrophils # 38.2 H (1.6-8.9) K/mcL BMP 06/07/16 03:40 Sodium 140 Potassium 4.4 Chloride 100 Carbon Dioxide 29 BUN 28 H Creatinine 0.66 Glucose 111 H Calcium 9.2 Liver Function 06/07/16 Range/Units 03:40 Total Bilirubin 0.4 (0.2-1.2) mg/dL AST 27 (5-34) Units/L ALT 29 (0-55) Units/L Alkaline Phosphatase 83 (38-126) Units/L Albumin 2.5 L (3.5-5.0) g/dL - ABG Interpretation ABG results: PT/INR, D-dimer PT 11.7 Seconds (9.4-12.1) 06/04/16 18:00 Consult Discharge Plan - Plan Referrals: Lew Carroll MD [Primary Care Provider] - 06/14/16 9:45 am <Stan Kaye - Last Filed: 06/07/16 17:06> Date of Encounter: 06/07/16 - Assessment and plan (1) Superior vena cava compression syndrome Current Visit: Yes Status: Acute (2) Pulmonary emboli Current Visit: Yes Status: Acute Qualifiers: Pulmonary embolism type: other Chronicity: acute Acute cor pulmonale presence: without acute cor pulmonale Qualified Code(s): I26.99 - Other pulmonary embolism without acute cor pulmonale (3) Small cell lung cancer Current Visit: Yes Status: Acute Qualifiers: Laterality: right Qualified Code(s): C34.91 - Malignant neoplasm of unspecified part of right bronchus or lung (4) Type 2 diabetes mellitus Current Visit: Yes Status: Chronic Qualifiers: Diabetes mellitus complication status: with hyperglycemia 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 Qualified Code(s): E11.65 - Type 2 diabetes mellitus with hyperglycemia; Z79.4 - half-way (current) use of insulin (5) Pleural effusion, right Current Visit: Yes Status: Chronic (6) Chronic respiratory failure Current Visit: Yes Status: Chronic Qualifiers: Respiratory failure complication: hypoxia Qualified Code(s): J96.11 - Chronic respiratory failure with hypoxia - Constitutional Vitals: Temp Pulse Resp BP Pulse Ox 98.0 F 112 16 160/98 97 06/07/16 15:00 06/07/16 15:00 06/07/16 15:00 06/07/16 15:00 06/07/16 15:00 Internal Medicine: Result - Labs CBC & Chem 7: 06/07/16 03:40 06/07/16 03:40 Labs: Short CBC 06/07/16 Range/Units 03:40 WBC 40.2 H* D (4.3-11.1) K/mcL Hgb 9.3 L (11.5-15.4) g/dL Hct 28.9 L (35.3-44.9) % Plt Count 361 (140-400) K/mcL Neutrophils # 38.2 H (1.6-8.9) K/mcL BMP 06/07/16 03:40 Sodium 140 Potassium 4.4 Chloride 100 Carbon Dioxide 29 BUN 28 H Creatinine 0.66 Glucose 111 H Calcium 9.2 Liver Function 06/07/16 Range/Units 03:40 Total Bilirubin 0.4 (0.2-1.2) mg/dL AST 27 (5-34) Units/L ALT 29 (0-55) Units/L Alkaline Phosphatase 83 (38-126) Units/L Albumin 2.5 L (3.5-5.0) g/dL - ABG Interpretation ABG results: PT/INR, D-dimer PT 11.7 Seconds (9.4-12.1) 06/04/16 18:00 - Attending Attestation I examined this patient and my medical decision-making was reviewed with the Resident Physician on 06/07/16. I agree with the documented findings, disposition and treatment plan as described except to the extent set forth below. Ms. Guzman is currently admitted for acute SVC syndrome and PE associated with lung cancer. She remains high risk due to extent of clot and risk for continued complications. Ms. Guzman has just returned from radiation. She is feeling a little better. Her arms are still very edematous but face is less swollen. Exam Alert. Comfortable. Not as tearful Heart reg Lungs diminished I/P 1. SVC syndrome 2. RLE PE 3. Lung cancer Will continue subqu Lovenox, radiation to continue next week. PT/OT will need to see for d/c planning.
[2016-06-07 15:28] LABS: Magnesium 1.8 mg/dL (1.6-2.6); Phosphorous 2.9 mg/dL (2.3-4.7)
[2016-06-07] MEDS: Acetaminophen 325 MG TABLET PO PRN (16:44)
[2016-06-07] MEDS: *HR* OxyCODONE Immed Rel 5 MG TABLET PO PRN (19:46)
[2016-06-07] MEDS: traZODone 50 MG TABLET PO SCH (22:00)
[2016-06-07] MEDS: Magic Mouthwash 10 ML UD Cup PO PRN (22:33)
[2016-06-08 05:07] LABS: Hemoglobin 9.2 g/dL (11.5-15.4); Mean Platelet Volume 9.6 fL (9.4-12.4)
[2016-06-08 05:08] LABS: Hematocrit 29.4 % (35.3-44.9); Mean Corpuscular HGB Conc 31.3 g/dL (31.6-35.5); Mean Corpuscular Hemoglobin 29.9 pg (28.0-33.3); Mean Corpuscular Volume 95.5 fL (83.0-100.0); Platelet Count 343 K/mcL (140-400); Red Blood Count 3.08 M/mcL (3.82-4.97); Red Cell Distribution Width 17.8 % (11.5-14.5)
[2016-06-08 05:19] LABS: Alanine Aminotransferase 30 Units/L (0-55); Albumin 2.6 g/dL (3.5-5.0); Albumin/Globulin Ratio 0.8 (1.1-2.2); Alkaline Phosphatase 98 Units/L (38-126); Aspartate Amino Transferase 28 Units/L (5-34); BUN/Creatinine Ratio 33 (6-26); Bilirubin,Total 0.4 mg/dL (0.2-1.2); Blood Urea Nitrogen 22 mg/dL (7-20); Calcium 9.4 mg/dL (8.6-10.8); Carbon Dioxide 30 mEq/L (19-29); Chloride 95 mEq/L (98-109); Globulin 3.1 g/dL (2.4-3.5); Glucose 84 mg/dL (70-99); Osmolality,Calculated 287 (280-300); Potassium 4.2 mEq/L (3.5-4.5); Sodium 137 mEq/L (136-145); Total Protein 5.7 g/dL (6.0-8.3); eGFR For African Americans > 60 (> 60); eGFR For Non-African Americans > 60 (> 60)
[2016-06-08 06:09] LABS: Lymphocytes # 5.4 K/mcL (0.6-4.6); Monocytes # 1.8 K/mcL (0.0-1.3)
[2016-06-08 06:10] LABS: Platelet Estimate Normal (Normal)
[2016-06-08] MEDS: *HR* Enoxaparin 80 MG/0.8 ML SYRINGE SQ SCH ×2 (06:27→18:48)
[2016-06-08] MEDS: *HR* OxyCODONE Immed Rel 5 MG TABLET PO PRN ×2 (06:29→22:11)
[2016-06-08] MEDS: levoFLOXacin 500 MG TABLET PO SCH (09:52)
[2016-06-08] MEDS: *HR* LORazepam 1 MG TABLET PO PRN (09:53)
[2016-06-08] MEDS: Nicotine 14 MG PATCH.TD24 TD SCH (09:53)
[2016-06-08] MEDS: Acetaminophen 325 MG TABLET PO PRN (15:27)
--- NOTE | 2016-06-08 15:27 | Internal Med Progress Note ---
<Marcelo Antunez - Last Filed: 06/08/16 15:25> Date of Encounter: 06/08/16 Time of Encounter: 08:00 - Assessment and plan (1) Pulmonary emboli Current Visit: Yes Status: Acute Assessment and plan: Stable. Patient continues to require 4 L oxygen, tachycardic, CTA demonstrates pulmonary embolism and right lower lobe segment pulmonary arteries. Lung mass unchanged from previous imaging. Right-sided pleural effusion. Patient was switched from IV heparin to subcutaneous Lovenox 1 mg/kg yesterday. Echocardiogram from 06/06/2016 demonstrates LVEF greater than 70%, normal left ventricular chamber size wall thickness and function. Mild left ventricular diastolic dysfunction, normal right ventricular structure and function. No evidence of pulmonary hypertension. RVSP not well obtained. Plan: - Continue Lovenox 1 mg/kg as discussed with hematology oncology team. Qualifiers: Pulmonary embolism type: other Chronicity: acute Acute cor pulmonale presence: without acute cor pulmonale Qualified Code(s): I26.99 - Other pulmonary embolism without acute cor pulmonale (2) Small cell lung cancer Current Visit: Yes Status: Acute Assessment and plan: Patient known history of small cell lung cancer is followed by [facility] oncology with known large mediastinal mass. Reading from CTA chest: large infiltrative soft tissue mass in the mediastinum extending to the right hilar region and right upper lobe. The mass measures approximately 10.0 x 8.5 cm, not significantly changed when compared to the previous exam. There is severe mass effect on the right lobar and segmental bronchioles which are severely narrowed. There is also mass effect on the vascular structures of the middle mediastinum due to enlarged conglomerate mediastinal lymph nodes. Plan: - Hematology oncology team following the patient during inpatient stay. - Continue with scheduled radiation therapy. Qualifiers: Laterality: right Qualified Code(s): C34.91 - Malignant neoplasm of unspecified part of right bronchus or lung (3) Superior vena cava compression syndrome Current Visit: Yes Status: Acute Assessment and plan: Patient with SVC syndrome demonstrate improvement post radiation therapy. Facial swelling continues to show improvement. CTA findings: mass effect on the vascular structures of the middle mediastinum due to enlarged conglomerate mediastinal lymph nodes. The caliber of the SVC is similar to the previous exam. Patency of the SVC cannot be assessed due to nonopacification of the venous structures. If there is concern for SVC thrombus , echocardiogram or upper extremity venous ultrasound could be obtained for further evaluation. Venous doppler upper extremity: Pt POSITIVE for SVT of Internal jugular vein, POSITIVE for DVT of axillary vein and brachial vein right upper extremity Pt POSITIVE for SVT Internal jugular vein, POSITIVE for DVT of axillary vein and brachial left upper extremity. Plan: - Hematology oncology team involved in patient's care. - She continues to tolerate her current radiation therapy. - Patient currently anticoagulated. (4) Cat scratch of forearm Current Visit: Yes Status: Acute Assessment and plan: Patient has recent cat scratch to dorsal right forearm. Today there is clear serous drainage in the setting of significantly edematous upper extremities. Given the patient is immunocompromised, will treat with by mouth medication. Plan: - Levaquin daily for total of 10 days. (Day 2 of 10) Qualifiers: Encounter type: initial encounter Laterality: right Qualified Code(s): S50.811A - Abrasion of right forearm, initial encounter; W55.03XD - Scratched by cat, subsequent encounter (5) Constipation Current Visit: No Status: Chronic Assessment and plan: Patient has known history of constipation requiring disimpaction. Patient continued on home bowel regimen. Qualifiers: Constipation type: slow transit constipation Qualified Code(s): K59.01 - Slow transit constipation (6) Leukocytosis Current Visit: Yes Status: Acute Assessment and plan: Patient's WBC count greater than 90, I spoke with Dr. Kinney today regarding this elevation and he says this is normal while she is taking Neulasta. She is asymptomatic denies any fevers chills, pain or discomfort. Plan: - We will hold CBC at this time. Qualifiers: Qualified Code(s): D72.829 - Elevated white blood cell count, unspecified (7) DVT prophylaxis Current Visit: No Status: Acute Assessment and plan: Patient receiving Lovenox injections for PE and DVT coverage. - Subjective Interval history: Mrs. Guzman 65 year old female seen and evaluated at patient bedside this morning, she is awake, interactive and denies any pain today. She does mention some confusion today, but says she has occasional episodes of feeling confused like this. She continues to demonstrate concern for post discharge care including Lovenox self injection. She denies any chest pain or change in vision and his shortness of breath or difficulty breathing or swallowing, nausea vomiting or diarrhea. She denies any other feeling of discomfort pain or concern. She still continues to show optimism for curing her cancer. - Constitutional Vitals: Temp Pulse Resp BP Pulse Ox 97.6 F 110 16 114/96 97 06/08/16 07:00 06/08/16 15:00 06/08/16 15:00 06/08/16 11:00 06/08/16 15:00 General appearance: Present: A&O X 3 (midly confused with questioning), pleasant , obese Exam: Gen. patient is alert awake oriented, facial swelling improved since starting directed radiation therapy. Cardiac: Chest symmetric bilateral chronic respiratory effort, regular rate and rhythm with systolic murmur grade 2/6. Respiratory: Clear to auscultation bilateral lung junior Abdomen: Soft nontender palpation positive bowel sounds Chest: Patient is a external port in her upper right subclavian midline is not erythematous with surrounding vascular congestion. Port in her right lateral rib cage without signs of erythema or edema. Extremities: Diffuse anasarca, no fluid weeping appreciated on examination today. No erythema around healing cat scratch sites. Internal Medicine: Result - Labs CBC & Chem 7: 06/08/16 03:51 06/08/16 03:51 Labs: Short CBC 06/08/16 Range/Units 03:51 WBC 90.2 H* D (4.3-11.1) K/mcL Hgb 9.2 L (11.5-15.4) g/dL Hct 29.4 L (35.3-44.9) % Plt Count 343 (140-400) K/mcL Neutrophils # 83.0 H (1.6-8.9) K/mcL BMP 06/07/16 06/08/16 03:40 03:51 Sodium 140 137 Potassium 4.4 4.2 Chloride 100 95 L Carbon Dioxide 29 30 H BUN 28 H 22 H Creatinine 0.66 0.66 Glucose 111 H 84 Calcium 9.2 9.4 Liver Function 06/07/16 06/08/16 Range/Units 03:40 03:51 Total Bilirubin 0.4 0.4 (0.2-1.2) mg/dL AST 27 28 (5-34) Units/L ALT 29 30 (0-55) Units/L Alkaline Phosphatase 83 98 (38-126) Units/L Albumin 2.5 L 2.6 L (3.5-5.0) g/dL - ABG Interpretation ABG results: PT/INR, D-dimer PT 11.7 Seconds (9.4-12.1) 06/04/16 18:00 Consult Discharge Plan - Plan Referrals: Lew Carroll MD [Primary Care Provider] - 06/14/16 9:45 am <Stan Kaye - Last Filed: 06/09/16 15:16> Date of Encounter: 06/08/16 - Assessment and plan (1) Superior vena cava compression syndrome Current Visit: Yes Status: Acute (2) Pulmonary emboli Current Visit: Yes Status: Acute Qualifiers: Pulmonary embolism type: other Chronicity: acute Acute cor pulmonale presence: without acute cor pulmonale Qualified Code(s): I26.99 - Other pulmonary embolism without acute cor pulmonale (3) Small cell lung cancer Current Visit: Yes Status: Acute Qualifiers: Laterality: right Qualified Code(s): C34.91 - Malignant neoplasm of unspecified part of right bronchus or lung (4) Type 2 diabetes mellitus Current Visit: Yes Status: Chronic Qualifiers: Diabetes mellitus complication status: with hyperglycemia Diabetes mellitus retirement insulin use: with retirement use Qualified Code(s): E11.65 - Type 2 diabetes mellitus with hyperglycemia; Z79.4 - [facility] (current) use of insulin (5) Pleural effusion, right Current Visit: Yes Status: Chronic (6) Chronic respiratory failure Current Visit: Yes Status: Chronic Qualifiers: Respiratory failure complication: hypoxia Qualified Code(s): J96.11 - Chronic respiratory failure with hypoxia (7) Cat scratch of forearm Current Visit: Yes Status: Acute Qualifiers: Encounter type: subsequent encounter Laterality: right Qualified Code(s) : S50.811D - Abrasion of right forearm, subsequent encounter; W55.03XD - Scratched by cat, subsequent encounter - Constitutional Vitals: Temp Pulse Resp BP Pulse Ox 97.8 F 105 20 134/75 100 06/09/16 04:27 06/09/16 07:00 06/09/16 11:53 06/09/16 07:00 06/09/16 11:53 Internal Medicine: Result - Labs CBC & Chem 7: 06/08/16 03:51 06/09/16 05:47 Labs: BMP 01/29/17 05:47 Sodium 140 Potassium 4.2 Chloride 98 Carbon Dioxide 31 H BUN 16 Creatinine 0.60 Glucose 110 H Calcium 9.2 Liver Function 06/09/16 Range/Units 05:47 Total Bilirubin 0.4 (0.2-1.2) mg/dL AST 25 (5-34) Units/L ALT 37 (0-55) Units/L Alkaline Phosphatase 130 H (38-126) Units/L Albumin 2.5 L (3.5-5.0) g/dL - ABG Interpretation ABG results: PT/INR, D-dimer PT 11.7 Seconds (9.4-12.1) 06/04/16 18:00 - Attending Attestation I examined this patient and my medical decision-making was reviewed with the Resident Physician on 06/08/16. I agree with the documented findings, disposition and treatment plan as described except to the extent set forth below. Ms. Guzman is currently admitted for SVC syndrome and PE. She remains moderate to high risk due to potential for worsening respiratory issues. Ms. Guzman has started radiation. She is less swollen now. Denies new pain. No dyspnea. No GI symptoms. Worried about where she will go when she is discharged. Feels too weak to go to rehab. Exam Alert. Tearful Heart reg and distant Lungs diminished. I/P 1. Acute SVC syndrome 2. R PE 3. Lungs cancer Further diagnoses and plan as above.
[2016-06-08] MEDS: Magic Mouthwash 10 ML UD Cup PO PRN (22:11)
[2016-06-08] MEDS: traZODone 50 MG TABLET PO SCH (22:12)
[2016-06-09] MEDS: *HR* Enoxaparin 80 MG/0.8 ML SYRINGE SQ SCH ×2 (05:58→19:01)
[2016-06-09] MEDS: *HR* LORazepam 1 MG TABLET PO PRN ×2 (05:58→19:01)
[2016-06-09 07:27] LABS: Alanine Aminotransferase 37 Units/L (0-55); Albumin 2.5 g/dL (3.5-5.0); Albumin/Globulin Ratio 0.8 (1.1-2.2); Alkaline Phosphatase 130 Units/L (38-126); Aspartate Amino Transferase 25 Units/L (5-34); BUN/Creatinine Ratio 27 (6-26); Bilirubin,Total 0.4 mg/dL (0.2-1.2); Blood Urea Nitrogen 16 mg/dL (7-20); Calcium 9.2 mg/dL (8.6-10.8); Carbon Dioxide 31 mEq/L (19-29); Chloride 98 mEq/L (98-109); Globulin 3.1 g/dL (2.4-3.5); Glucose 110 mg/dL (70-99); Osmolality,Calculated 292 (280-300); Potassium 4.2 mEq/L (3.5-4.5); Sodium 140 mEq/L (136-145); Total Protein 5.6 g/dL (6.0-8.3); eGFR For African Americans > 60 (> 60); eGFR For Non-African Americans > 60 (> 60)
[2016-06-09] MEDS: Nicotine 14 MG PATCH.TD24 TD SCH (10:08)
[2016-06-09] MEDS: levoFLOXacin 500 MG TABLET PO SCH (10:08)
[2016-06-09] MEDS: *HR* OxyCODONE Immed Rel 5 MG TABLET PO PRN (15:38)
--- NOTE | 2016-06-09 15:48 | Internal Med Progress Note ---
<Marcelo Antunez - Last Filed: 06/09/16 15:45> Date of Encounter: 06/09/16 Time of Encounter: 15:45 - Assessment and plan (1) Pulmonary emboli Current Visit: Yes Status: Acute Assessment and plan: Stable. Patient continues to require 4 L oxygen, tachycardic, CTA demonstrates pulmonary embolism and right lower lobe segment pulmonary arteries. Lung mass unchanged from previous imaging. Right-sided pleural effusion. Patient was switched from IV heparin to subcutaneous Lovenox 1 mg/kg yesterday. Echocardiogram from 06/06/2016 demonstrates LVEF greater than 70%, normal left ventricular chamber size wall thickness and function. Mild left ventricular diastolic dysfunction, normal right ventricular structure and function. No evidence of pulmonary hypertension. RVSP not well obtained. Plan: - Continue Lovenox 1 mg/kg as discussed with hematology oncology team. Qualifiers: Pulmonary embolism type: other Chronicity: acute Acute cor pulmonale presence: without acute cor pulmonale Qualified Code(s): I26.99 - Other pulmonary embolism without acute cor pulmonale (2) Small cell lung cancer Current Visit: Yes Status: Acute Assessment and plan: Patient known history of small cell lung cancer is followed by [facility] with known large mediastinal mass. Reading from CTA chest: large infiltrative soft tissue mass in the mediastinum extending to the right hilar region and right upper lobe. The mass measures approximately 10.0 x 8.5 cm, not significantly changed when compared to the previous exam. There is severe mass effect on the right lobar and segmental bronchioles which are severely narrowed. There is also mass effect on the vascular structures of the middle mediastinum due to enlarged conglomerate mediastinal lymph nodes. Plan: - Hematology oncology team following the patient during inpatient stay. - Continue with scheduled radiation therapy. Qualifiers: Laterality: right Qualified Code(s): C34.91 - Malignant neoplasm of unspecified part of right bronchus or lung (3) Superior vena cava compression syndrome Current Visit: Yes Status: Acute Assessment and plan: Patient with SVC syndrome demonstrate improvement post radiation therapy. Facial swelling continues to show improvement. CTA findings: mass effect on the vascular structures of the middle mediastinum due to enlarged conglomerate mediastinal lymph nodes. The caliber of the SVC is similar to the previous exam. Patency of the SVC cannot be assessed due to nonopacification of the venous structures. If there is concern for SVC thrombus , echocardiogram or upper extremity venous ultrasound could be obtained for further evaluation. Venous doppler upper extremity: Pt POSITIVE for SVT of Internal jugular vein, POSITIVE for DVT of axillary vein and brachial vein right upper extremity Pt POSITIVE for SVT Internal jugular vein, POSITIVE for DVT of axillary vein and brachial left upper extremity. Plan: - Hematology oncology team involved in patient's care. - She continues to tolerate her current radiation therapy. - Patient currently anticoagulated. (4) Cat scratch of forearm Current Visit: Yes Status: Acute Assessment and plan: Patient has recent cat scratch to dorsal right forearm. Today there is clear serous drainage in the setting of significantly edematous upper extremities. Given the patient is immunocompromised, will treat with by mouth medication. Plan: - Levaquin daily for total of 10 days. (Day 3 of 10) Qualifiers: Encounter type: subsequent encounter Laterality: right Qualified Code(s) : S50.811D - Abrasion of right forearm, subsequent encounter; W55.03XD - Scratched by cat, subsequent encounter (5) Constipation Current Visit: No Status: Chronic Assessment and plan: Patient has known history of constipation requiring disimpaction. Patient continued on home bowel regimen. Qualifiers: Constipation type: slow transit constipation Qualified Code(s): K59.01 - Slow transit constipation (6) DVT prophylaxis Current Visit: No Status: Acute Assessment and plan: Patient receiving Lovenox injections for PE and DVT coverage. - Subjective Interval history: Mrs. Guzman 65 year old female seen and evaluated at patient bedside this morning, she is awake, interactive and denies any pain today. She says that she is feeling depressed today, and that she is unsure if she should be able to go home as her home is being treated for bedbugs. She feels that the chemicals will kill her. She is also upset that she is a fall risk and cannot get out of bed on her own. She mentioned that she might be willing to go to a senior care for short-term period. She denies any chest pain or change in vision and his shortness of breath or difficulty breathing or swallowing, nausea vomiting or diarrhea. She denies any other feeling of discomfort pain or concern. She still continues to show optimism for curing her cancer. - Constitutional Vitals: Temp Pulse Resp BP Pulse Ox 97.8 F 105 20 134/75 100 06/09/16 04:27 06/09/16 07:00 06/09/16 11:53 06/09/16 07:00 06/09/16 11:53 General appearance: Present: A&O X 3 (midly confused with questioning), pleasant , obese Exam: Gen. patient is alert awake oriented, facial swelling improved since starting directed radiation therapy. Cardiac: Chest symmetric bilateral chronic respiratory effort, regular rate and rhythm with systolic murmur grade 2/6. Respiratory: Clear to auscultation bilateral lung junior Abdomen: Soft nontender palpation positive bowel sounds Chest: Patient is a external port in her upper right subclavian midline is not erythematous with surrounding vascular congestion. Port in her right lateral rib cage without signs of erythema or edema. Extremities: Diffuse anasarca, minimal weeping of right upper extremity appreciated on examination today. No erythema around healing cat scratch sites. Internal Medicine: Result - Labs CBC & Chem 7: 06/08/16 03:51 06/09/16 05:47 Labs: BMP 06/09/16 05:47 Sodium 140 Potassium 4.2 Chloride 98 Carbon Dioxide 31 H BUN 16 Creatinine 0.60 Glucose 110 H Calcium 9.2 Liver Function 06/09/16 Range/Units 05:47 Total Bilirubin 0.4 (0.2-1.2) mg/dL AST 25 (5-34) Units/L ALT 37 (0-55) Units/L Alkaline Phosphatase 130 H (38-126) Units/L Albumin 2.5 L (3.5-5.0) g/dL - ABG Interpretation ABG results: PT/INR, D-dimer PT 11.7 Seconds (9.4-12.1) 06/04/16 18:00 Consult Discharge Plan - Plan Referrals: Lew Carroll MD [Primary Care Provider] - 06/14/16 9:45 am <Stan Kaye - Last Filed: 06/09/16 17:45> Date of Encounter: 06/09/16 - Assessment and plan (1) Superior vena cava compression syndrome Current Visit: Yes Status: Acute (2) Pulmonary emboli Current Visit: Yes Status: Acute Qualifiers: Pulmonary embolism type: other Chronicity: acute Acute cor pulmonale presence: without acute cor pulmonale Qualified Code(s): I26.99 - Other pulmonary embolism without acute cor pulmonale (3) Small cell lung cancer Current Visit: Yes Status: Acute Qualifiers: Laterality: right Qualified Code(s): C34.91 - Malignant neoplasm of unspecified part of right bronchus or lung (4) Type 2 diabetes mellitus Current Visit: Yes Status: Chronic Qualifiers: Diabetes mellitus complication status: with hyperglycemia 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 insulin use: with [facility]dc use Qualified Code(s): E11.65 - Type 2 diabetes mellitus with hyperglycemia; Z79.4 - skilled nursing (current) use of insulin (5) Pleural effusion, right Current Visit: Yes Status: Chronic (6) Chronic respiratory failure Current Visit: Yes Status: Chronic Qualifiers: Respiratory failure complication: hypoxia Qualified Code(s): J96.11 - Chronic respiratory failure with hypoxia (7) Cat scratch of forearm Current Visit: Yes Status: Acute Qualifiers: Encounter type: subsequent encounter Laterality: right Qualified Code(s) : S50.811D - Abrasion of right forearm, subsequent encounter; W55.03XD - Scratched by cat, subsequent encounter - Constitutional Vitals: Temp Pulse Resp BP Pulse Ox 98.4 F 108 15 134/79 98 06/09/16 15:00 06/09/16 15:00 06/09/16 15:00 06/09/16 15:00 06/09/16 15:00 Internal Medicine: Result - Labs CBC & Chem 7: 06/08/16 03:51 06/09/16 05:47 Labs: BMP 06/09/16 05:47 Sodium 140 Potassium 4.2 Chloride 98 Carbon Dioxide 31 H BUN 16 Creatinine 0.60 Glucose 110 H Calcium 9.2 Liver Function 06/09/16 Range/Units 05:47 Total Bilirubin 0.4 (0.2-1.2) mg/dL AST 25 (5-34) Units/L ALT 37 (0-55) Units/L Alkaline Phosphatase 130 H (38-126) Units/L Albumin 2.5 L (3.5-5.0) g/dL - ABG Interpretation ABG results: PT/INR, D-dimer PT 11.7 Seconds (9.4-12.1) 06/04/16 18:00 - Attending Attestation I examined this patient and my medical decision-making was reviewed with the Resident Physician on 06/09/16. I agree with the documented findings, disposition and treatment plan as described except to the extent set forth below. Ms. Guzman is currently admitted for SVC syndrome and R PE. She remains moderate to high risk due to potential for worsening respiratory status. Ms. Guzman is tearful today. She is worried about what will happen with discharge. She seems less confused today. Denies new pain. No dyspnea now. Exam Alert. Comfortable Heart reg Lungs without wheeze Less edema in face. I/P 1. SVC syndrome 2. R PE 3. Stage 4 lung cancer Further diagnoses and plan as above. At this point she is medically stable for discharge. She is still receiving radiation treatment and will remain on subqu Lovenox. She needs rehab as well.
[2016-06-09] MEDS: Ondansetron 4 MG/2 ML VIAL IVP PRN (19:05)
[2016-06-09] MEDS: traZODone 50 MG TABLET PO SCH (20:06)
[2016-06-10 06:01] LABS: Alanine Aminotransferase 34 Units/L (0-55); Albumin 2.4 g/dL (3.5-5.0); Albumin/Globulin Ratio 0.7 (1.1-2.2); Alkaline Phosphatase 153 Units/L (38-126); Aspartate Amino Transferase 27 Units/L (5-34); BUN/Creatinine Ratio 28 (6-26); Bilirubin,Total 0.4 mg/dL (0.2-1.2); Blood Urea Nitrogen 18 mg/dL (7-20); Calcium 8.9 mg/dL (8.6-10.8); Carbon Dioxide 27 mEq/L (19-29); Chloride 99 mEq/L (98-109); Globulin 3.3 g/dL (2.4-3.5); Glucose 142 mg/dL (70-99); Osmolality,Calculated 292 (280-300); Potassium 4.5 mEq/L (3.5-4.5); Sodium 139 mEq/L (136-145); Total Protein 5.7 g/dL (6.0-8.3); eGFR For African Americans > 60 (> 60); eGFR For Non-African Americans > 60 (> 60)
[2016-06-10] MEDS: *HR* Enoxaparin 80 MG/0.8 ML SYRINGE SQ SCH ×2 (06:30→17:28)
[2016-06-10] MEDS: Nicotine 14 MG PATCH.TD24 TD SCH (08:22)
[2016-06-10] MEDS: levoFLOXacin 500 MG TABLET PO SCH (08:22)
[2016-06-10 09:49] LABS: Hematocrit 28.8 % (35.3-44.9); Hemoglobin 9.1 g/dL (11.5-15.4); Mean Corpuscular HGB Conc 31.6 g/dL (31.6-35.5); Mean Corpuscular Hemoglobin 30.1 pg (28.0-33.3); Mean Corpuscular Volume 95.4 fL (83.0-100.0); Mean Platelet Volume 9.8 fL (9.4-12.4); Platelet Count 247 K/mcL (140-400); Red Blood Count 3.02 M/mcL (3.82-4.97); Red Cell Distribution Width 17.7 % (11.5-14.5)
--- NOTE | 2016-06-10 09:54 | Internal Med Progress Note ---
Date of Encounter: 06/10/16 Time of Encounter: 08:00 - Constitutional Vitals: Temp Pulse Resp BP Pulse Ox 98.2 F 108 16 140/82 99 06/10/16 07:52 06/10/16 07:52 06/10/16 07:52 06/10/16 07:52 06/10/16 07:52 General appearance: Present: A&O X 3 (midly confused with questioning), pleasant , obese Internal Medicine: Result - Labs CBC & Chem 7: 06/08/16 03:51 06/10/16 05:22 Labs: BMP 06/10/16 05:22 Sodium 139 Potassium 4.5 Chloride 99 Carbon Dioxide 27 BUN 18 Creatinine 0.65 Glucose 142 H Calcium 8.9 Liver Function 06/10/16 Range/Units 05:22 Total Bilirubin 0.4 (0.2-1.2) mg/dL AST 27 (5-34) Units/L ALT 34 (0-55) Units/L Alkaline Phosphatase 153 H (38-126) Units/L Albumin 2.4 L (3.5-5.0) g/dL - ABG Interpretation ABG results: PT/INR, D-dimer PT 11.7 Seconds (9.4-12.1) 06/04/16 18:00 Consult Discharge Plan - Plan Referrals: Lew Carroll MD [Primary Care Provider] - 06/14/16 9:45 am
[2016-06-10 10:27] LABS: Neutrophils # 46.9 K/mcL (1.6-8.9)
[2016-06-10 10:28] LABS: Dohle Bodies Present (Not Present); Toxic Vacuolation Present (Not Present)
[2016-06-10 10:29] LABS: Platelet Estimate Normal (Normal)
[2016-06-10 12:26] VITALS: BP 150/85
--- NOTE | 2016-06-10 15:34 | Discharge Summary ---
Date of Encounter: 06/10/16 Time of Encounter: 15:34 - Discharge Medications Home Medications: Aspirin/Calcium Carbonate/Mag [Aspirin Buffered 325 mg Tab] 325 mg PO DAILY 01/25 [History] Lisinopril [Zestril] 10 mg PO DAILY 03/20/16 [History] Bumetanide [Bumex] 0.5 mg PO DAILY #15 tablet 04/19/16 [Rx] Ondansetron HCl [Zofran] 4 mg PO Q6HR PRN #20 tablet 04/19/16 [Rx] Potassium Chloride 20 meq PO DAILY #30 tab.er.prt 04/19/16 [Rx] Prochlorperazine Maleate [Compazine] 10 mg PO Q6HR PRN #30 tablet 04/19/16 [Rx] TraZODone 50 mg PO HS #30 tablet 04/19/16 [Rx] Zolpidem [Ambien] 5 mg PO HS PRN #30 tablet 04/19/16 [Rx] Acetaminophen [Tylenol] 1,000 mg PO Q6HR PRN #120 tablet 05/03/16 [Rx] Ibuprofen [Motrin] 600 mg PO Q8HR PRN #90 tablet 05/03/16 [Rx] Oxycodone HCl 5 mg PO Q6H PRN #20 capsule 05/03/16 [Rx] Albuterol Sulfate [Albuterol Inhaler] 2 puff IH Q4H PRN 05/19/16 [History] Dexamethasone [Decadron] 4 mg PO BID 05/23/16 [History] Docusate [Colace] 100 mg PO BID #100 capsule 05/23/16 [Rx] LORazepam [Ativan] 1 mg PO BID PRN 05/23/16 [History] Nicotine Patch [Nicoderm] 14 mg TD DAILY #14 patch.td24 05/23/16 [Rx] Polyethylene Glycol 3350 [MiraLAX] 17 gm PO DAILY PRN #30 powd.pack 05/23/16 [Rx ] Sennosides [Senna] 17.2 mg PO BID #100 tablet 05/23/16 [Rx] Magic Mouthwash [Magic Mouthwash BLM] 10 ml PO QID PRN #240 ml 05/29/16 [Rx] Allergies/Adverse Reactions: Allergies Bee Pollen Allergy (Verified 05/29/16 13:05) Anaphylaxis Penicillins Allergy (Verified 05/29/16 13:05) Hives Labs on day of discharge: Labs from last 24 hours 06/10/16 06/10/16 09:13 05:22 WBC 48.8 H* RBC 3.02 L Hgb 9.1 L Hct 28.8 L MCV 95.4 MCH 30.1 MCHC 31.6 RDW 17.7 H Plt Count 247 MPV 9.8 Seg Neutrophils % 92.0 Band Neutrophils % 4.0 Lymphocytes % 4.0 Neutrophils # 46.9 H Lymphocytes # 2.0 Toxic Vacuolation Present A Dohle Bodies Present A Platelet Estimate Normal Sodium 139 Potassium 4.5 Chloride 99 Carbon Dioxide 27 BUN 18 Creatinine 0.65 Est GFR ( Amer) > 60 Est GFR (Non-Af Amer) > 60 BUN/Creatinine Ratio 28 H Glucose 142 H Calculated Osmolality 292 Calcium 8.9 Total Bilirubin 0.4 AST 27 ALT 34 Alkaline Phosphatase 153 H Serum Total Protein 5.7 L Albumin 2.4 L Globulin 3.3 Albumin/Globulin Ratio 0.7 L Internal Medicine - DS: Prov Date of admission: 06/04/16 21:23 Primary care physician: Lew Carroll MD Consults: 06/05/16 10:31 Consult to Oncology Hematology [CONS] Routine Consulting Provider: Mart Kinney Reason for Consult: Patient sent from cancer center with clots Call Completed: No 06/05/16 13:14 Consult to Pastoral Services [CONS] Routine Comment: 06/05/16 14:43 Consult to Supervisor Last Model Department [CONS] Routine Reason for SW Consult: Living will paperwork 06/07/16 11:23 PT [Consult to Physical Therapy] [CONS] Routine Comment: Evaluate, develop and implement POC - Patient Status Condition: Serious - Discharge Instructions Follow Up With: Lew Carroll MD [Primary Care Provider] - 06/14/16 9:45 am - Hospital Course Hospital course: Ms. Guzman is a 65 year old female - Time Spent with Patient Total time spent providing and/or coordinating discharge services: Internal Medicine - DS: Exam - Constitutional Vitals: Vital Signs Temp Pulse Resp BP Pulse Ox 06/10/16 11:00 98.2 F 109 16 150/85 99 06/10/16 07:52 98.2 F 108 16 140/82 99 06/10/16 05:33 98.2 F 125 20 150/85 95 06/09/16 20:58 15 98 06/09/16 19:07 98.6 F 108 16 142/74 99 Intake and Output 06/09/16 06/10/16 06/10/16 23:59 07:59 15:59 Intake Total 0 / 0 250 / 250 240 / 240 Output Total 0 / 0 0 / 0 150 / 150 Balance 0 / 0 250 / 250 90 / 90 Intake: Oral 0 / 0 250 / 250 240 / 240 Output: Urine 0 / 0 0 / 0 150 / 150 Other: Meal Lunch Percent of Meal Consumed 15% Stool Size Moderate Stool Consistency formed Stool Characteristics Normal for Patient Stool Color Brown # Voids 1 # Urine Diapers 1 # Bowel Movements 1 Weight 60.4 kg Patient Weight 06/10/16 23:59 Weight 60.4 kg
--- NOTE | 2016-06-10 15:37 | Physician Discharge Referral ---
<Seun Islas - Last Filed: 06/10/16 16:18> Home Health/Hosp Referral Info Transfer to: Home Health Attending Provider: Dr. 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 For more information, call the [employer] Tobacco Quit Line at 0-741-SNPA-NOW. - Dressing/Wound Care Site: R forearm. Type of Dressing/Treatments w/Frequency: Small scratch to R arm. Healing well. Quan make sure the area stays clean and covered if weeping, daily. - Diet/Nutrition Diet/Nutrition Orders: Regular - Activity Activity Orders: Up ad marilee - Services Needed Following services are medically necessary services: Nursing, Home Health Aide ( With Palliative), Occupational Therapy, Med Social Work Home Care Orders: -Patient will need help in moving in her home. She is able to stand, but is very weak. Requires bedside commode. Please make sure patient is compliant with her lovenox shots -Brought up palliative care to the patient. Recently diagnosed with Stage IV small sell lung cancer. Still wishes to continue chemo and "give it a fighting chance". She is interested in what the palliative care can do for her because she is beginning to realize that she might not be able to "beat it" Other Treatments: Home Health Palliative Care - Transfer Medications Prescriptions: Enoxaparin [Lovenox] 70 mg SQ Q12HCO #60 syringe Levofloxacin [Levaquin] 500 mg PO DAILY #7 tablet Home Medications: Aspirin/Calcium Carbonate/Mag [Aspirin Buffered 325 mg Tab] 325 mg PO DAILY 01/25 [History] Lisinopril [Zestril] 10 mg PO DAILY 03/20/16 [History] Bumetanide [Bumex] 0.5 mg PO DAILY #15 tablet 04/19/16 [Rx] Ondansetron HCl [Zofran] 4 mg PO Q6HR PRN #20 tablet 04/19/16 [Rx] Potassium Chloride 20 meq PO DAILY #30 tab.er.prt 04/19/16 [Rx] Prochlorperazine Maleate [Compazine] 10 mg PO Q6HR PRN #30 tablet 04/19/16 [Rx] TraZODone 50 mg PO HS #30 tablet 04/19/16 [Rx] Zolpidem [Ambien] 5 mg PO HS PRN #30 tablet 04/19/16 [Rx] Acetaminophen [Tylenol] 1,000 mg PO Q6HR PRN #120 tablet 05/03/16 [Rx] Ibuprofen [Motrin] 600 mg PO Q8HR PRN #90 tablet 05/03/16 [Rx] Oxycodone HCl 5 mg PO Q6H PRN #20 capsule 05/03/16 [Rx] Albuterol Sulfate [Albuterol Inhaler] 2 puff IH Q4H PRN 05/19/16 [History] Dexamethasone [Decadron] 4 mg PO BID 05/23/16 [History] Docusate [Colace] 100 mg PO BID #100 capsule 05/23/16 [Rx] LORazepam [Ativan] 1 mg PO BID PRN 05/23/16 [History] Nicotine Patch [Nicoderm] 14 mg TD DAILY #14 patch.td24 05/23/16 [Rx] Polyethylene Glycol 3350 [MiraLAX] 17 gm PO DAILY PRN #30 powd.pack 05/23/16 [Rx ] Sennosides [Senna] 17.2 mg PO BID #100 tablet 05/23/16 [Rx] Magic Mouthwash [Magic Mouthwash BLM] 10 ml PO QID PRN #240 ml 05/29/16 [Rx] Enoxaparin [Lovenox] 70 mg SQ Q12HCO #60 syringe 06/10/16 [Rx] Levofloxacin [Levaquin] 500 mg PO DAILY #7 tablet 06/10/16 [Rx] Allergies/Adverse Reactions: Allergies Bee Pollen Allergy (Verified 05/29/16 13:05) Anaphylaxis Penicillins Allergy (Verified 05/29/16 13:05) Hives Certification: Further, I certify that my clinical findings support that this patient is homebound (i.e. absences from home require considerable and taxing effort and are for medical reasons or druze services or infrequently or short duration when for other reasons) because: Attestation: My signature below is to certify that this patient is under my care and that I, or nurse practitioner, or a physician's assistant signal maintainer working with me, has a face-to -face encounter with this patient. 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 For more information, call the [place] Tobacco Quit Line at 9-073-WDHW-NOW. Certification: Further, I certify that my clinical findings support that this patient is homebound (i.e. absences from home require considerable and taxing effort and are for medical reasons or druze services or infrequently or short duration when for other reasons) because: Homebound Reason: Leaving home requires considerable and taxing effort due to condition, Severity of cardiac or pulmonary status limits activity tolerance Attestation: My signature below is to certify that this patient is under my care and that I, or nurse practitioner, or a physician's assistant signal maintainer working with me, has a face-to -face encounter with this patient.
--- NOTE | 2016-06-10 15:41 | Discharge Summary ---
<Higinio Islason Dany - Last Filed: 06/10/16 16:27> Date of Encounter: 06/10/16 Time of Encounter: 15:39 - Discharge Diagnosis (1) Cat scratch of forearm Priority: Primary Status: Acute Qualifiers: Encounter type: subsequent encounter Laterality: right Qualified Code(s) : S50.811D - Abrasion of right forearm, subsequent encounter; W55.03XD - Scratched by cat, subsequent encounter (2) Pulmonary emboli Priority: Primary Status: Acute Qualifiers: Pulmonary embolism type: other Chronicity: acute Acute cor pulmonale presence: without acute cor pulmonale Qualified Code(s): I26.99 - Other pulmonary embolism without acute cor pulmonale (3) Small cell lung cancer Priority: Primary Status: Acute Qualifiers: Laterality: right Qualified Code(s): C34.91 - Malignant neoplasm of unspecified part of right bronchus or lung (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 - Discharge Medications Prescriptions: Enoxaparin [Lovenox] 70 mg SQ Q12HCO #60 syringe Levofloxacin [Levaquin] 500 mg PO DAILY #7 tablet Home Medications: Aspirin/Calcium Carbonate/Mag [Aspirin Buffered 325 mg Tab] 325 mg PO DAILY 01/25 [History] Lisinopril [Zestril] 10 mg PO DAILY 03/20/16 [History] Bumetanide [Bumex] 0.5 mg PO DAILY #15 tablet 04/19/16 [Rx] Ondansetron HCl [Zofran] 4 mg PO Q6HR PRN #20 tablet 04/19/16 [Rx] Potassium Chloride 20 meq PO DAILY #30 tab.er.prt 04/19/16 [Rx] Prochlorperazine Maleate [Compazine] 10 mg PO Q6HR PRN #30 tablet 04/19/16 [Rx] TraZODone 50 mg PO HS #30 tablet 04/19/16 [Rx] Zolpidem [Ambien] 5 mg PO HS PRN #30 tablet 04/19/16 [Rx] Acetaminophen [Tylenol] 1,000 mg PO Q6HR PRN #120 tablet 05/03/16 [Rx] Ibuprofen [Motrin] 600 mg PO Q8HR PRN #90 tablet 05/03/16 [Rx] Oxycodone HCl 5 mg PO Q6H PRN #20 capsule 05/03/16 [Rx] Albuterol Sulfate [Albuterol Inhaler] 2 puff IH Q4H PRN 05/19/16 [History] Dexamethasone [Decadron] 4 mg PO BID 05/23/16 [History] Docusate [Colace] 100 mg PO BID #100 capsule 05/23/16 [Rx] LORazepam [Ativan] 1 mg PO BID PRN 05/23/16 [History] Nicotine Patch [Nicoderm] 14 mg TD DAILY #14 patch.td24 05/23/16 [Rx] Polyethylene Glycol 3350 [MiraLAX] 17 gm PO DAILY PRN #30 powd.pack 05/23/16 [Rx ] Sennosides [Senna] 17.2 mg PO BID #100 tablet 05/23/16 [Rx] Magic Mouthwash [Magic Mouthwash BLM] 10 ml PO QID PRN #240 ml 05/29/16 [Rx] Enoxaparin [Lovenox] 70 mg SQ Q12HCO #60 syringe 06/10/16 [Rx] Levofloxacin [Levaquin] 500 mg PO DAILY #7 tablet 06/10/16 [Rx] Allergies/Adverse Reactions: Allergies Bee Pollen Allergy (Verified 05/29/16 13:05) Anaphylaxis Penicillins Allergy (Verified 05/29/16 13:05) Hives Date of admission: 06/04/16 21:23 Primary care physician: Lew Carroll MD Consults: 06/05/16 10:31 Consult to Oncology Hematology [CONS] Routine Consulting Provider: Mart Kinney Reason for Consult: Patient sent from cancer center with clots Call Completed: No 06/05/16 13:14 Consult to Pastoral Services [CONS] Routine Comment: 06/05/16 14:43 Consult to Assistant Program Manager [CONS] Routine Reason for SW Consult: Living will paperwork 06/07/16 11:23 PT [Consult to Physical Therapy] [CONS] Routine Comment: Evaluate, develop and implement POC Discharging clinician: Seun Islas Anticipated date of discharge: 06/10/16 - Patient Status Disposition: Home Health Service Condition: Fair Functional capacity at discharge: wheelchair bound Overall status at discharge: patient is progressing back to baseline - Discharge Instructions Instructions: Enoxaparin (Injection), Levofloxacin (By mouth), Pulmonary Embolism (DC), Lung Cancer (DC), Lung Cancer (GEN), Diabetes Mellitus Type 2 in Adults (DC), Chronic Obstructive Pulmonary Disease (DC), Pneumonia (DC), Cigarette Smoking and Your Health, Etl Manager (GEN) Follow Up With: Lew Carroll MD [Primary Care Provider] - 06/14/16 9:45 am (Discharging with PE. Started on Lovenox BID. Patient interested in Palliative Care. I have requested homehealth/palliative for her. ) - Diet and Activity Activity: increase activity as tolerated Diet: advance to your usual diet Interval History: Patient feels a little better today compared to yesterday. Still is having Shortness of breath and requiring oxygen, some nausea, is able to swallow pills. Denies any chest pain. She wishes to go home and remain a full code. She is interested in palliative care. I discussed this option for her. She is sitting up in bed and has no questions at this time. Hospital course: Ms. Guzman is a 65 year old female with a diagnosis of Small Cell lung cancer in March 2016. She started having shortness of breath. Upon further evaluation, she was discovered to have a PE. Started on lovenox BID. Since diagnosis, she feels like her symptoms have not entirely improved, but she is not feeling worse. She would like to go home. I brought up palliative care to her, she is interested. She does have home health that is expiring soon. - Time Spent with Patient Total time spent providing and/or coordinating discharge services: Greater than 30 minutes - Constitutional Vitals: Temp Pulse Resp BP Pulse Ox 98.2 F 109 16 150/85 99 06/10/16 11:00 06/10/16 11:00 06/10/16 11:00 06/10/16 11:06/10/16 11:00 General appearance: Present: A&O X 3 (midly confused with questioning), pleasant , obese - Respiratory Respiratory exam: Present: CTAB. Absent: accessory muscle use, rales, rhonchi, wheezes - Cardiovascular Cardiovascular exam: Present: RRR, +S1, +S2. Absent: diastolic murmur, gallop, rubs, systolic murmur - GI/Abdominal GI/Abdominal exam: Present: soft, no peritoneal signs. Absent: distended, tenderness - Neurological Exam Neurological exam: Present: alert, oriented X3 - Psychiatric Psychiatric exam: Present: normal affect, normal mood - Skin Additional comments: Small cut to R forearm. Not indurated, swollen, draining. Appears well healed. - Other Additional findings: R upper extremity. Small cut, well healed. No erythema or signs of infection. <Stan Kaye - Last Filed: 06/10/16 17:43> Date of Encounter: 06/10/16 - Discharge Diagnosis (1) Superior vena cava compression syndrome Priority: Primary Status: Acute (2) Pulmonary emboli Status: Acute Qualifiers: Qualified Code(s): I26.99 - Other pulmonary embolism without acute cor pulmonale (3) Small cell lung cancer Priority: Secondary Status: Acute Qualifiers: Qualified Code(s): C34.91 - Malignant neoplasm of unspecified part of right bronchus or lung (4) Type 2 diabetes mellitus Priority: Secondary Status: Chronic Qualifiers: Qualified Code(s): E11.65 - Type 2 diabetes mellitus with hyperglycemia; Z79.4 - alf (current) use of insulin (5) Pleural effusion, right Priority: Secondary Status: Chronic (6) Chronic respiratory failure Priority: Secondary Status: Chronic Qualifiers: Qualified Code(s): J96.11 - Chronic respiratory failure with hypoxia (7) Cat scratch of forearm Priority: Secondary Status: Acute Qualifiers: Qualified Code(s): S50.811D - Abrasion of right forearm, subsequent encounter ; W55.03XD - Scratched by cat, subsequent encounter Date of admission: 06/04/16 21:23 Primary care physician: Lew Carroll MD Consults: 06/05/16 10:31 Consult to Oncology Hematology [CONS] Routine Consulting Provider: Mart Kinney Reason for Consult: Patient sent from cancer center with clots Call Completed: No 06/05/16 13:14 Consult to Pastoral Services [CONS] Routine Comment: 06/05/16 14:43 Consult to Assistant Program Manager [CONS] Routine Reason for SW Consult: Living will paperwork 06/07/16 11:23 PT [Consult to Physical Therapy] [CONS] Routine Comment: Evaluate, develop and implement POC Hospital course: Ms. Guzman is a 65 year old female - Time Spent with Patient Total time spent providing and/or coordinating discharge services: 39min - Constitutional Vitals: Temp Pulse Resp BP Pulse Ox 98.2 F 109 16 150/85 99 06/10/16 11:00 06/10/16 11:00 06/10/16 11:00 06/10/16 11:00 06/10/16 11:00 - Attending Attestation I examined this patient and my medical decision-making was reviewed with the Resident Physician on 06/10/16. I agree with the documented findings, disposition and treatment plan as described except to the extent set forth below. Ms. Guzman is doing better overall. She has no pain. She is tolerating radiation. She wants to go home with her significant other. Exam Alert. Comfortable Heart reg No wheeze Less edema Plan D/C home today with [facility] Follow up with oncology as scheduled.
--- NOTE | 2016-06-10 17:38 | Oncology Inp Progress Note ---
Date of Encounter: 06/10/16 Time of Encounter: 17:31 (1) DVT (deep venous thrombosis) Current Visit: Yes Status: Acute Assessment and plan: Superior vena cava syndrome with clot in the internal jugular vein. Also small volume PE. She had Lovenox 70 mg per KG Qualifiers: Affected thrombotic vein of extremity: other upper extremity vein Laterality: right Chronicity: acute Qualified Code(s): I82.621 - Acute embolism and thrombosis of deep veins of right upper extremity (2) Small cell lung cancer Current Visit: Yes Status: Acute Assessment and plan: Progressive compression of SVC. There is a concern that she could be [place] refractory. She started palliative radiation to the chest wall mass. We will make sure that she has transportation to come for radiation every day when she goes home /half-way She does have Pleurx catheter and should have enough education to drain the Pleurx catheter periodically Qualifiers: Laterality: right Qualified Code(s): C34.91 - Malignant neoplasm of unspecified part of right bronchus or lung (3) Superior vena cava compression syndrome Current Visit: Yes Status: Acute Assessment and plan: This is more likely from tumor progression which is causing compression of SVC. We will leave the port in the right chest wall. Okay to use the port Oncology: Subj Interval history: Shortness of breath has improved. Bilateral upper extremity edema marginally better. The swelling in the face has reduced considerably - Constitutional Vitals: Vital Signs Temp Pulse Resp BP Pulse Ox 06/10/16 11:00 98.2 F 109 16 150/85 99 06/10/16 07:52 98.2 F 108 16 140/82 99 06/10/16 05:33 98.2 F 125 20 150/85 95 06/09/16 20:58 15 98 06/09/16 19:07 98.6 F 108 16 142/74 99 Intake and Output 06/10/16 06/10/16 06/10/16 07:59 15:59 23:59 Intake Total 250 / 250 240 / 240 Output Total 0 / 0 150 / 150 Balance 250 / 250 90 / 90 Intake: Oral 250 / 250 240 / 240 Output: Urine 0 / 0 150 / 150 Other: Meal Lunch Percent of Meal Consumed 15% Stool Size Moderate Stool Consistency formed Stool Characteristics Normal for Patient Stool Color Brown # Voids 1 # Bowel Movements 1 Weight 60.4 kg Patient Weight 06/10/16 23:59 Weight 60.4 kg Oncology: Obj Data - Labs CBC & Chem 7: 06/10/16 09:13 06/10/16 05:22 Labs: Laboratory Results - last 24 hr 06/10/16 06/10/16 05:22 09:13 WBC 48.8 H* RBC 3.02 L Hgb 9.1 L Hct 28.8 L MCV 95.4 MCH 30.1 MCHC 31.6 RDW 17.7 H Plt Count 247 MPV 9.8 Seg Neutrophils % 92.0 Band Neutrophils % 4.0 Lymphocytes % 4.0 Neutrophils # 46.9 H Lymphocytes # 2.0 Toxic Vacuolation Present A Dohle Bodies Present A Platelet Estimate Normal Sodium 139 Potassium 4.5 Chloride 99 Carbon Dioxide 27 BUN 18 Creatinine 0.65 Est GFR ( Amer) > 60 Est GFR (Non-Af Amer) > 60 BUN/Creatinine Ratio 28 H Glucose 142 H Calculated Osmolality 292 Calcium 8.9 Total Bilirubin 0.4 AST 27 ALT 34 Alkaline Phosphatase 153 H Serum Total Protein 5.7 L Albumin 2.4 L Globulin 3.3 Albumin/Globulin Ratio 0.7 L - ABG Interpretation ABG results: PT/INR, D-dimer PT 11.7 Seconds (9.4-12.1) 06/04/16 18:00 Consult Discharge Plan - Plan Instructions: Enoxaparin (Injection), Levofloxacin (By mouth), Pulmonary Embolism (DC), Lung Cancer (DC), Lung Cancer (GEN), Diabetes Mellitus Type 2 in Adults (DC), Chronic Obstructive Pulmonary Disease (DC), Pneumonia (DC), Cigarette Smoking and Your Health, Alarm Security Or Surveillance Monitor (GEN) Referrals: Lew Carroll MD [Primary Care Provider] - 06/14/16 9:45 am (Discharging with PE. Started on Lovenox BID. Patient interested in Palliative Care. I have requested homehealth/palliative for her. ) Prescriptions: Enoxaparin [Lovenox] 70 mg SQ Q12HCO #60 syringe Levofloxacin [Levaquin] 500 mg PO DAILY #7 tablet
== END 2016-06-10 18:30 | disposition home health service (06) | DRG 175 ==
LOC: EMEROO 16:13 → 2NENU 21:23
PROVIDERS: ADMIT Internal Medicine; ATTEND Internal Medicine

== ENCOUNTER 2016-08-13 19:35 | Observation (INO) ==
--- NOTE | 2016-08-13 20:35 | Emergency Department Note ---
Disposition Clinical Impression: Generalized weakness, Intractable pain, Recurrent pleural effusion on right SCLC (small cell lung carcinoma) Qualifiers: Laterality: unspecified laterality Qualified Code(s): C34.90 - Malignant neoplasm of unspecified part of unspecified bronchus or lung Disposition: Admitted As Inpatient Condition: Fair Time of Disposition: 22:48 General Adult HPI - General Chief complaint: ED Extremity Problem,Nontraumatic Stated complaint: left leg paralysis, SARI Time Seen by Provider: 08/13/16 20:13 Source: patient Limitations: no limitations Nursing Notes Reviewed: Yes Vital Signs Reviewed: Yes - History of Present Illness HPI Narrative: Patient is a 65-year-old female who presents to [facility] ED with a chief complaint of left-sided paralysis of her arm and leg. Patient also has difficulty breathing which has been ongoing for a long time now. Has medical history significant for small cell lung cancer for which she has received chemotherapy and radiation. Patient is continuing to receive treatment. 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 Patient was recently on Eliquis but then stopped this due to attributing it to anxiety attacks causing abdominal pain. Patient follows with Dr. Kinney at the cancer center. Family states patient had said earlier that her stroke was last night. However upon questioning, patient states her stroke was around 6:30 this evening. Upon examination patient is able to move her left leg and left arm. Her right side actually seems weaker than her left. Onset (ago): unknown Location: other (all over) Pain Severity: severe Pain Scale: 10 Quality: aching Consistency: constant Improves with: nothing Worsens with: nothing Associated symptoms: Reports: cough, shortness of breath Treatments Prior to Arrival: none - Related Data Home Medications Medication Instructions Recorded Confirmed Aspirin/Calcium Carbonate/Mag 325 mg PO DAILY 03/20/16 08/13/16 [Aspirin Buffered 325 mg Tab] Albuterol Sulfate [Albuterol 2 puff IH Q4H PRN 05/19/16 08/13/16 Inhaler] Dexamethasone [Decadron] 4 mg PO BID 05/23/16 08/01/16 Oxygen 4 l NS CONT 08/13/16 08/13/16 Previous Rx's Medication Instructions Recorded Potassium Chloride 20 meq PO DAILY #30 tab.er.prt 04/19/16 Acetaminophen [Tylenol] 1,000 mg PO Q6HR PRN #120 tablet 12/23/16 Ibuprofen [Motrin] 600 mg PO Q8HR PRN #90 tablet 05/03/16 Docusate [Colace] 100 mg PO BID #100 capsule 05/23/16 Nicotine Patch [Nicoderm] 14 mg TD DAILY #14 patch.td24 05/23/16 Polyethylene Glycol 3350 [MiraLAX] 17 gm PO DAILY PRN #30 powd.pack 05/23/16 Sennosides [Senna] 17.2 mg PO BID #100 tablet 05/23/16 Magic Mouthwash [Magic Mouthwash 10 ml PO QID PRN #240 ml 05/29/16 BLM] Oxycodone HCl 5 mg PO BID PRN #60 capsule 06/27/16 Sertraline [Zoloft] 50 mg PO DAILY #30 tablet 06/27/16 Bumetanide [Bumex] 0.5 mg PO DAILY #30 tablet 07/15/16 LORazepam [Ativan] 1 mg PO BID PRN #60 tablet 07/18/16 Lisinopril [Zestril] 10 mg PO DAILY #30 tablet 07/18/16 Ondansetron HCl [Zofran] 4 mg PO Q6HR PRN #20 tablet 07/18/16 Prochlorperazine Maleate 10 mg PO Q6HR PRN #30 tablet 07/18/16 [Compazine] TraZODone 50 mg PO HS #30 tablet 07/18/16 Oxycodone HCl 10 mg PO BID #60 tab 08/01/16 Zolpidem [Ambien] 5 mg PO HS PRN #30 tablet 08/05/16 Allergies Allergy/AdvReac Type Severity Reaction Status Date / Time Bee Pollen Allergy Anaphylaxis Verified 08/01/16 14:13 Penicillins Allergy Hives Verified 08/01/16 14:13 All systems ED: reviewed and negative except as stated. Past Medical History - Past Medical History Attestation: Yes The following information was validated with the patient. 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 history - Social History Smoking Status: Former smoker Smokeless Tobacco Status: No Alcohol use: Reports: none Drug use: Reports: none Physical Exam - General Limitations: no limitations General appearance: alert - Head Head exam: atraumatic, normocephalic, normal inspection - Eye Eye exam: Present: normal appearance, PERRL, EOMI - ENT ENT exam: normal exam, normal oropharynx, mucous membranes moist - Neck Neck exam: Present: normal inspection, full ROM, trachea midline - Chest Chest inspection: Present: normal inspection, symmetric chest wall rise - Respiratory Respiratory exam: Present: other (Diffuse rhonchi bilaterally) - Cardiovascular Cardiovascular exam: Present: normal rhythm, tachycardia - Abdominal Exam Abdominal exam: Present: soft, Non-Tender. Absent: tenderness, distention, guarding, rebound, rigidity - Extremities Exam Extremities exam: Present: normal inspection, full ROM, tenderness. Absent: pedal edema - Back Exam Back exam: Present: tenderness - Neurological Exam Neurological exam: Present: alert, motor sensory deficit - Expanded Neurological Exam Patient oriented to: Present: person, place Speech: Present: fluid speech Motor strength - LUE: 5/5 Motor strength - RUE: 4/5 Motor strength - LLE: 5/5 Motor strength - RLE: 4/5 Upper motor neuron exam: mayra neglect: Present on left (feels left side is weak , but left strength > right strenth) Coma Scale Eye Opening: Spontaneous Coma Scale Motor Response: Obeys Commands Coma Scale Verbal Response: Oriented Coma Scale Total: 15 - Psychiatric Psychiatric exam: Present: normal affect, normal mood - Skin Skin exam: Present: warm, dry, intact, normal color Course Course Narrative: Patient seen and examined. Complaining of left-sided weakness though she is able to move everything. Concern for inattention to the left side. A stroke alert was called. Patient's last known well is apparently 6:30 PM tonight. She had also told other people that she had a stroke last night. Upon exam, her right side is actually weaker than the left. However stroke alert was called and critical care workup initiated. Chest x-ray and urinalysis were also added. Patient has been complaining of pain all over. She does have a history of small cell lung cancer with probable poor prognosis. - Reevaluation(s) Reevaluation #1: Patient was evaluated by [facility] neurologists. Patient is not a candidate for TPA. Patient has been complaining of a lot of pain. Dilaudid and Zofran ordered. Patient's chest x-ray also shows right-sided complete pleural effusion. Patient will need drainage through her Pleurx catheter. We will likely need this evaluated as well. We will admit for generalized weakness, intractable pain, worsening difficulty breathing. I spoke with hospitalist Dr. Miller who has accepted patient for admission. Time: 22:47 Vital Signs Temperature 97.3 F L 08/13/16 19:36 Pulse Rate 125 08/13/16 19:36 Respiratory Rate 20 08/13/16 19:36 Blood Pressure 119/86 08/13/16 19:36 O2 Sat by Pulse Oximetry 95 08/13/16 19:36 Temperature 98.5 F 08/14/16 00:13 Pulse Rate 74 08/14/16 00:13 Respiratory Rate 16 08/14/16 00:13 Blood Pressure 119/79 08/14/16 00:13 O2 Sat by Pulse Oximetry 96 08/14/16 00:13 Oxygen Delivery Oxygen Delivery Nasal Cannula Medical Decision Making - Medical Records Medical records reviewed: Yes I reviewed the patient's medical records. - Lab Data Lab results reviewed: Yes I reviewed the patient's lab results. Result diagrams: 08/13/16 21:00 08/13/16 21:00 Lab Results 08/13/16 08/13/16 08/13/16 Range/Units 20:42 21:00 21:00 WBC 21.8 H (4.3-11.1) K/mcL RBC 3.47 L (3.82-4.97) M/mcL Hgb 10.0 L (11.5-15.4) g/dL Hct 32.8 L (35.3-44.9) % MCV 94.5 (83.0-100.0) fL MCH 28.8 (28.0-33.3) pg MCHC 30.5 L (31.6-35.5) g/dL RDW 14.4 (11.5-14.5) % Plt Count 420 H (140-400) K/mcL MPV 8.7 L (9.4-12.4) fL Seg Neutrophils % 97.0 % Lymphocytes % 2.0 % Monocytes % 1.0 % Neutrophils # 21.2 H (1.6-8.9) K/mcL Lymphocytes # 0.4 L (0.6-4.6) K/mcL Monocytes # 0.2 (0.0-1.3) K/mcL Platelet Estimate Slight increase H (Normal) PT 13.0 H (9.4-12.1) Seconds INR 1.2 APTT 22.5 L (26.0-36.0) Seconds Sodium (136-145) mEq/L Potassium (3.5-4.5) mEq/L Chloride (98-109) mEq/L Carbon Dioxide (19-29) mEq/L BUN (7-20) mg/dL Creatinine (0.57-1.11) mg/dL Est GFR ( Amer) (> 60) Est GFR (Non-Af Amer) (> 60) BUN/Creatinine Ratio (6-26) Glucose (70-99) mg/dL POC Glucose 191 H (58-89) Calculated Osmolality (280-300) Calcium (8.6-10.8) mg/dL Troponin I (0-0.03) ng/mL 08/13/16 08/13/16 Range/Units 21:00 21:00 WBC (4.3-11.1) K/mcL RBC (3.82-4.97) M/mcL Hgb (11.5-15.4) g/dL Hct (35.3-44.9) % MCV (83.0-100.0) fL MCH (28.0-33.3) pg MCHC (31.6-35.5) g/dL RDW (11.5-14.5) % Plt Count (140-400) K/mcL MPV (9.4-12.4) fL Seg Neutrophils % % Lymphocytes % % Monocytes % % Neutrophils # (1.6-8.9) K/mcL Lymphocytes # (0.6-4.6) K/mcL Monocytes # (0.0-1.3) K/mcL Platelet Estimate (Normal) PT (9.4-12.1) Seconds INR APTT (26.0-36.0) Seconds Sodium 136 (136-145) mEq/L Potassium 4.0 (3.5-4.5) mEq/L Chloride 96 L (98-109) mEq/L Carbon Dioxide 30 H (19-29) mEq/L BUN 36 H (7-20) mg/dL Creatinine 0.80 (0.57-1.11) mg/dL Est GFR ( Amer) > 60 (> 60) Est GFR (Non-Af Amer) > 60 (> 60) BUN/Creatinine Ratio 45 H (6-26) Glucose 143 H (70-99) mg/dL POC Glucose (58-89) Calculated Osmolality 293 (280-300) Calcium 9.1 (8.6-10.8) mg/dL Troponin I 0.01 (0-0.03) ng/mL - Radiology Data Radiology results reviewed: Yes I reviewed the patient's radiology results. Head CT 08/13/16 20:33 IMPRESSION: 1. No acute intracranial abnormality. Critical results were called by Dr. Dany Landis MD to Dr. Jesus on 08/13/2016 at 21:05. 2. Mild chronic small vessel ischemic changes. D/ / Dany Landis MD / Dany Landis MD Interpreting Provider: Dany Landis MD Attestation Statement - Attestation Attestation: I, Bert Parham, examined this patient and my medical decision-making was reviewed with the NEWSPAPER REPORTER/PA/Advanced Practice Nurse/Resident Physician. I agree with the documented findings, disposition and treatment plan as described except to the extent set forth below. 65-year-old female presents to the emergency department for concerns of left sided paralysis. Apparently patient initially told triage nurse that symptoms started 24 hours ago however on my evaluation the patient states symptoms started at 6 PM tonight which is within the past 2-1/2 hours. Patient is a poor historian and is difficult to get an accurate history. Family states the patient called them stating she had left-sided paralysis at 6 PM. During my initial evaluation in the emergency department the patient is able to move the left upper extremity and the left lower extremity however she does not seem to recognize that they are there and states that they are still paralyzed despite moving them during the examination. Stroke protocol was initiated for possible left-sided mayra-neglect as a presenting sign of CVA and it was unclear as to the initial starting time. CT of the head did not show acute intracranial hemorrhage. Patient was evaluated by [facility] neurologist and was not found to be a candidate for TPA secondary to multiple comorbidities, previous CVA and unclear time of onset. Patient will be admitted to the hospital for further care and evaluation. Urine resulted after the patient's admission which showed possible UTI. Levofloxacin ordered as pt has allergy to PCN. Pt not given 30cc/kg bolus due to possible worsening of respiratory status and pt is no longer tachycardic and is not hypotensive.
[2016-08-13 21:14] LABS: Hematocrit 32.8 % (35.3-44.9); Mean Corpuscular HGB Conc 30.5 g/dL (31.6-35.5); Mean Corpuscular Hemoglobin 28.8 pg (28.0-33.3); Mean Corpuscular Volume 94.5 fL (83.0-100.0); Mean Platelet Volume 8.7 fL (9.4-12.4); Platelet Count 420 K/mcL (140-400); Red Blood Count 3.47 M/mcL (3.82-4.97); Red Cell Distribution Width 14.4 % (11.5-14.5)
[2016-08-13 21:20] LABS: INR 1.2
[2016-08-13 21:23] LABS: Activated Partial Thrombo Time 22.5 Seconds (26.0-36.0)
[2016-08-13 21:25] LABS: BUN/Creatinine Ratio 45 (6-26); Blood Urea Nitrogen 36 mg/dL (7-20); Calcium 9.1 mg/dL (8.6-10.8); Carbon Dioxide 30 mEq/L (19-29); Chloride 96 mEq/L (98-109); Glucose 143 mg/dL (70-99); Osmolality,Calculated 293 (280-300); Sodium 136 mEq/L (136-145); eGFR For African Americans > 60 (> 60); eGFR For Non-African Americans > 60 (> 60)
[2016-08-13 21:38] LABS: Lymphocytes # 0.4 K/mcL (0.6-4.6)
[2016-08-13 21:39] LABS: Monocytes # 0.2 K/mcL (0.0-1.3); Neutrophils # 21.2 K/mcL (1.6-8.9)
[2016-08-13] MEDS ORDERED: *HR* HYDROmorphone (PF) 1 MG/ML SYRINGE IVP ONE (22:00)
[2016-08-13] MEDS ORDERED: Ondansetron 4 MG/2 ML VIAL IVP ONE (22:00)
[2016-08-13 23:21] LABS: Bilirubin,Urine Small (Negative); Blood,Urine Negative (Negative); Clarity,Urine Turbid (Clear); Color,Urine Dark Yellow (Yellow); Glucose,Urine (UA) Normal (Normal); Ketones,Urine Negative (Negative); Leukocyte Esterase,Urine Large (Negative); Nitrite,Urine Negative (Negative); Protein,Urine 100 mg/dL (Neg-Trace); Specific Gravity,Urine > 1.030 (1.010-1.025); Urobilinogen,Urine Normal (Normal)
[2016-08-13 23:24] LABS: Bacteria,Urine Many per hpf (None-Few); Hyaline Casts,Urine Few per lpf (None-Few); Squamous Epithelial Cell,Urine Many per lpf (None-Few); WBC,Urine TNTC per hpf (0-3)
[2016-08-13 23:34] LABS: Yeast,Urine Many per hpf (None Seen)
[2016-08-14] MEDS ORDERED: Levofloxacin 750 MG/150 ML 750 MG/150 ML BAG IVPB ONE (01:24)
[2016-08-14] MEDS ORDERED: 0.9 % Sodium Chloride 1,000 ML IVC ONE (08:26)
[2016-08-14] MEDS ORDERED: Naloxone 0.4 MG/ML INJ IVP PRN (08:36)
[2016-08-14] MEDS ORDERED: Dextrose Gel 15 GM PO PRN ×2 (09:47)
[2016-08-14] MEDS ORDERED: *HR* Dextrose 50 % in Water (Syg) 50 ML SYRINGE IVP PRN (09:47)
[2016-08-14] MEDS ORDERED: D5% in Water 1,000 ML IVC PRN (09:47)
--- NOTE | 2016-08-14 09:55 | Internal Med History&Physical ---
Date of Encounter: 08/14/16 Time of Encounter: 08:30 Assessment and Plan (1) Sepsis Current visit: Yes Status: Acute Assess: Patient presents with sepsis criteria upon admission (HR 114, WBC 21.8, and suspected UTI). Plan: Lactate level being monitored. Blood cultures ordered and to be monitored. Continuation of IV Levofloxacin for possible infection coverage. Crystalloid fluid administered. (2) Difficulty breathing Current visit: Yes Status: Acute Assess: Patient presents with difficulty breathing and SOB related to recurrent right- sided pleural effusion and small cell lung cancer. Exam reveals diminished breath sounds, rhonchi, and wheezes in all lobes bilaterally. Cough present with sputum production. Patient is former smoker with history of COPD and shows mild distress related to SOB. Patient currently has Pleurx drain in place and is on 4L of O2 via nasal cannula. Plan: Drain Pleurx drain every 1-2 days as necessary. Sputum culture ordered. Continue Levofloxacin for possible infection coverage. Continue O2 at 4L and titrate if SpO2 <92%. Continue albuterol treatments as necessary. Position patient for optimal breathing comfort. Up with assistance as tolerated. (3) Pleural effusion Current visit: Yes Status: Chronic Assess: Patient presents with difficulty breathing and SOB related to recurrent right- sided pleural effusion and small cell lung cancer. Exam reveals diminished breath sounds, rhonchi, and wheezes in all lobes bilaterally. Cough present with sputum production. Patient is former smoker with history of COPD and shows mild distress related to SOB. Patient currently has Pleurx drain in place and is on 4L of O2 via nasal cannula. Plan: Drain Pleurx drain every 1-2 days as necessary. Sputum culture ordered. Continue Levofloxacin for possible infection coverage. Continue O2 at 4L and titrate if SpO2 <92% Position patient for optimal breathing comfort. Up with assistance as tolerated. (4) Intractable pain Current visit: Yes Status: Acute Assess: Patient reports pain associated with SOB and pleural effusion. Plan: Pain medications ordered: Ibuprofen for mild to moderate. Acetaminophen for moderate. Oxycodone for severe/breakthrough. Drain Pleurx drain as needed to help relieve SOB. Monitor pain. Narcan protocol ordered for possible opioid reversal. (5) Generalized weakness Current visit: Yes Status: Acute Assess: Patient reports left-sided weakness and semi-paralysis due to stroke she suffered at home yesterday. Reports numbness and tingling throughout her body. On examination, patient's strength is equal and good bilaterally when squeezing , pushing, and pulling. EKG shows sinus tachycardia with non-specific T-wave abnormality and abnormal rhythm. Plan: MRI ordered to rule out/confirm TIA and/or brain mets. Patient has declined and states she wants no more tests and only wants to go home. D-Dimer ordered. Results 1947. Lovenox ordered for anticoagulation prophylaxis. Continue aspirin therapy. Cardiac monitoring ordered. Falls precautions initiated. (6) Asthma Current visit: Yes Status: Chronic Assess: Patient reports history of asthma. Plan: Continue albuterol therapy as needed. Qualifiers: Asthma complication type: uncomplicated Qualified Code(s): J45.909 - Unspecified asthma, uncomplicated (7) COPD (chronic obstructive pulmonary disease) Current visit: Yes Status: Chronic Assess: Patient reports history of COPD. Patient is former smoker. Plan: O2 at 4L and titrate if SpO2 <92%. Continuation of albuterol as needed. Continuation of nicotine patch. Position patient for comfort. Qualifiers: COPD type: unspecified COPD Qualified Code(s): J44.9 - Chronic obstructive pulmonary disease, unspecified (8) Diabetes 1.5, managed as type 2 Current visit: Yes Status: Chronic Assess: Patient reports history of type 2 diabetes managed by diet. Patient denies use of insulin or other diabetic medications. Plan: Diabetic diet ordered. Blood glucose monitoring ordered. Low dose insulin regimen ordered as needed. Hypoglycemic protocol ordered. (9) GERD (gastroesophageal reflux disease) Current visit: Yes Status: Chronic Assess: Patient reports history of GERD and occasional nausea due to reflux. Patient is currently not taking medications to manage GERD. Plan: Dietary modifications. Qualifiers: Esophagitis presence: esophagitis presence not specified Qualified Code(s) : K21.9 - Gastro-esophageal reflux disease without esophagitis (10) Hyperlipidemia Current visit: Yes Status: Chronic Assess: Patient reports history of hyperlipidemia. Plan: Lipid panel ordered. Dietary modifications. Qualifiers: Hyperlipidemia type: unspecified Qualified Code(s): E78.5 - Hyperlipidemia , unspecified (11) Hypertension Current visit: Yes Status: Chronic Assess: Patient reports history of HTN. BP readings trending Plan: Monitor BP readings during admission. Continue Bumetinide. Continue Lisinopril. Dietary modifications. Qualifiers: Hypertension type: essential hypertension Qualified Code(s): I10 - Essential (primary) hypertension (12) SCLC (small cell lung carcinoma) Current visit: Yes Status: Chronic Assess: Patient reports diagnosis of small cell lung cancer four months ago when she was admitted for pneumonia. This condition is exacerbated by the presence of recurrent right-sided pleural effusion. Plan: MRI ordered to assess for possible metastasis to brain as well as presence of possible TIA related to reported current left-sided weakness/semi-paralysis. Patient has refused MRI stating she doesn't want any more testing. Full code status per patient. My recommendation is a hospice consult. Qualifiers: Laterality: unspecified laterality Qualified Code(s): C34.90 - Malignant neoplasm of unspecified part of unspecified bronchus or lung (13) Anxiety Current visit: Yes Status: Chronic Assess: Patient reports history of anxiety, depression, and insomnia. States she has not slept for the past 48 hours. Plan: Continue Ambien as a sleep aid. Continue Trazodone for depression/anxiety. Continue Zoloft for anxiety. Continue Ativan for anxiety. Social Work consult to assess for possible home needs. (14) DVT prophylaxis Current visit: Yes Status: Acute Assess: DVT protocol ordered due to history of SVC syndrome and SVC clot. Plan: D-Dimer ordered. Result: 1947 Continuation of aspirin therapy. Lovenox therapy ordered due to discontinuation of Eliquis. Ambulation as tolerated and with assistance. Internal Medicine - H&P: HPI Admitted From: Emergency Dept Plans for Post Hospital Care: Home History of present illness: Ms. Guzman is a 65 year old female who present from the [facility] ED with a chief complaint of left-sided weakness/paralysis due to a stroke she suffered yesterday (08/13/16) at 19:00. Reports this weakness has worsened since yesterday and that she is experiencing numbness and tingling throughout her body. Patient also reports difficulty breathing/SOB related to small cell lung cancer and a recurrent pleural effusion of the right lung. 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 iKnney (PCP) stopped this medication due to abdominal discomfort and resulting anxiety attacks. Reports she is currently no longer on anticoagulation therapy. Past Med Surg Social Fam HX - Past Medical History Medical history: arthritis, asthma, cancer, COPD, diabetes, GERD, hyperlipidemia , hypertension, other Psychiatric history: anxiety - Past Surgical History Surgical History: , hysterectomy - Social History Smoking Status: Former smoker Smokeless Tobacco Status: No Alcohol use: none Drug use: none - Family History Mother Adopted: [place]: [place] Family Member Ethnicity: Non- Living Status: Age at : 38 Cause of : EPILIPSY Hx Family Cardiac Disorders: No Hx Family Respiratory Disorders: No Hx Family Cancer: No Hx Family GI Disorders: No Hx Family Genitourinary Disorders: No Hx Family Endocrine Disorder: Yes (DM) Hx Family Musculoskeletal Disorders: No Hx Family Neuromuscular Disorders: No Hx Family Neurologic Disorders: No Hx Family HEENT Disorders: No Hx Family Autoimmune Disorders: No Hx Family Reproductive Disorders: No Hx Family Psychosocial Disorders: No Hx Family Medical Disorders: No Internal Medicine - H&P: Meds Aspirin/Calcium Carbonate/Mag [Aspirin Buffered 325 mg Tab] 325 mg PO DAILY 01/25 [History] Potassium Chloride 20 meq PO DAILY #30 tab.er.prt 04/19/16 [Rx] Acetaminophen [Tylenol] 1,000 mg PO Q6HR PRN #120 tablet 05/03/16 [Rx] Ibuprofen [Motrin] 600 mg PO Q8HR PRN #90 tablet 05/03/16 [Rx] Albuterol Sulfate [Albuterol Inhaler] 2 puff IH Q4H PRN 05/19/16 [History] Dexamethasone [Decadron] 4 mg PO BID 05/23/16 [History] Docusate [Colace] 100 mg PO BID #100 capsule 05/23/16 [Rx] Nicotine Patch [Nicoderm] 14 mg TD DAILY #14 patch.td24 05/23/16 [Rx] Polyethylene Glycol 3350 [MiraLAX] 17 gm PO DAILY PRN #30 powd.pack 05/23/16 [Rx ] Sennosides [Senna] 17.2 mg PO BID #100 tablet 05/23/16 [Rx] Magic Mouthwash [Magic Mouthwash BLM] 10 ml PO QID PRN #240 ml 05/29/16 [Rx] Oxycodone HCl 5 mg PO BID PRN #60 capsule 06/27/16 [Rx] Sertraline [Zoloft] 50 mg PO DAILY #30 tablet 06/27/16 [Rx] Bumetanide [Bumex] 0.5 mg PO DAILY #30 tablet 07/15/16 [Rx] LORazepam [Ativan] 1 mg PO BID PRN #60 tablet 07/18/16 [Rx] Lisinopril [Zestril] 10 mg PO DAILY #30 tablet 07/18/16 [Rx] Ondansetron HCl [Zofran] 4 mg PO Q6HR PRN #20 tablet 07/18/16 [Rx] Prochlorperazine Maleate [Compazine] 10 mg PO Q6HR PRN #30 tablet 07/18/16 [Rx] TraZODone 50 mg PO HS #30 tablet 07/18/16 [Rx] Oxycodone HCl 10 mg PO BID #60 tab 08/01/16 [Rx] Zolpidem [Ambien] 5 mg PO HS PRN #30 tablet 08/05/16 [Rx] Oxygen 4 l NS CONT 08/13/16 [History] Allergies Bee Pollen Allergy (Verified 08/01/16 14:13) Anaphylaxis Penicillins Allergy (Verified 08/01/16 14:13) Hives All Systems PM: A 10-system review of systems was performed and is negative for pertinent findings except as documented above in the HPI. - Constitutional Constitutional: as per HPI, weakness Additional comments: Patient reports left-sided weakness in arm and leg due to stroke yesterday. Reports weakness has worsened since yesterday. - EENT Eyes: as per HPI Additional comments: PERRLA Ears: no ear discharge, no ear pain, no tinnitus Nose, mouth and throat: no dysphagia, no nasal discharge, no neck pain, no sore throat - Breasts Breasts: as per HPI - Cardiovascular Cardiovascular ROS IM: as per HPI Additional comments: Patient is tachycardic on examination with HR @ 114. Review of EKG taken on at 22:22 shows sinus tachycardia, nonspecific t-wave abnormality, and abnormal rhythm. - Respiratory Respiratory: as per HPI, cough, dyspnea, wheezing, chest congestion Additional comments: Patient reports difficulty breathing. Patient has history of COPD, asthma, malignant neoplasm of unspecified part of bronchus or lung, and is a former smoker. Reports dyspnea has worsened since yesterday. - Gastrointestinal Gastrointestinal: as per HPI, nausea Additional comments: Patient reports nausea earlier which was resolved with Zofran. Denies vomiting. - Genitourinary Genitourinary: as per HPI Menstruation: as per HPI - Musculoskeletal Musculoskeletal ROS IM: muscle weakness, numbness, tingling Additional comments: Patient reports left-sided weakness due to stroke. Reports she has numbness and tingling all over her body. - Integumentary Integumentary IM: no rash, no unusual bruising - Neurological Neurological ROS: confusion, numbness, tingling, weakness Additional comments: Patient reports left-sided weakness due to stroke. Reports she has numbness and tingling all over her body. Patient also states she is confused about what will happen to her. - Psychiatric Psychiatric: as per HPI - Endocrine Endocrine IM: as per HPI - Hematologic/Lymphatic Hematologic/Lymphatic: no easy bruising - Allergic/Immunologic Allergic/Immunologic: as per HPI - Constitutional Vitals: Temp Pulse Resp BP Pulse Ox 97.4 F L 114 16 112/69 97 08/14/16 08:12 08/14/16 08:12 08/14/16 08:12 08/14/16 08:12 08/14/16 08:12 General appearance: Present: mild distress, A&O X 3, answers questions appropriately Exam: Patient appears mildly confused upon examination. Answers questions appropriately, but expresses she is not sure what is going to happen to her and that if her insurance doesn't pay for this treatment she will pay for it out-of- pocket. Patient did not answer all questions verbally, but would slowly nod yes or no when asked again. Semi-alert and oriented x3. - Head Head exam: Present: atraumatic, normocephalic Additional comments: Patient presents with all-over hair loss due to cancer treatments. - Eye Eye exam: Present: PERRL, conjuntiva pink, sclera anicteric Pupils: Present: PERRL - ENT ENT exam: Present: normal exam - Neck Neck exam general surgery: Present: supple, trachea midline. Absent: lymphadenopathy - Respiratory Respiratory exam: Present: decreased breath sounds, respiratory distress, wheezes Additional comments: Patient presents with mild respiratory distress upon examination. Currently has Pleurx drain in place for recurrent pleural effusion of right lung. Audible wheezes on exam and auscultation reveals wheezes, rhonchi, and diminished breath sounds bilaterally in all lobes. Patient originally seated at bedside during examination, but stated she was having difficulty breathing in this position. Patient placed in bed with HOB at 45 degrees and reported some improvement in breathing with position change. - Expanded Respiratory Exam Location: rhonchi: Left, Right, Upper, Lower, wheezes: Left, Right, Upper, Lower - Cardiovascular Cardiovascular exam: Present: tachycardia Additional comments: Patient tachycardic upon examination. HR at 114 bpm. Peripheral pulses present and strong. - GI/Abdominal GI/Abdominal exam: Present: normal bowel sounds, soft, no peritoneal signs. Absent: distended, tenderness Additional comments: Patient has history of GERD and reports nausea due to reflux. Reports no current distress or upset. - Rectal Rectal exam: Present: deferred - Additional comments: Genitourinary exam deferred. - Extremities Exam Extremities exam: Present: normal inspection, radial pulses palpable and symetrical - Expanded Upper Extremities Exam General: Present: normal inspection (Upon examination, patient shows equal strength bilaterally in upper extremities when squeezing, pushing, and pulling.) - Expanded Lower Extremities Exam Hip exam: Present: normal inspection (Upon examination, patient shows equal strength bilaterally in lower extremities when pushing, and pulling.) - Back Exam Back exam: Present: normal inspection - Neurological Exam Neurological exam: Present: oriented X3 Additional comments: Patient exhibits mild mental alteration during examination as evidenced by slow response to questions and wandering conversation. A & O x3. - Psychiatric Psychiatric exam: Present: anxious Additional comments: Patient exhibits mild anxiety related to difficulty breathing and SOB. - Skin Skin exam: Present: dry, intact Internal Med - H&P Results - Labs CBC & Chem 7: 08/14/16 09:45 08/14/16 09:45 Labs: Urine 08/13/16 Range/Units 23:10 Urine Color Dark Yellow (Yellow) Urine Clarity Turbid A (Clear) Urine pH 6.0 (5.0-8.0) pH Units Ur Specific [place] > 1.030 H (1.010-1.025) Urine Protein 100 H (Neg-Trace) mg/dL Urine Glucose (UA) Normal (Normal) mg/dL - EKG Data Rate: tachycardia - EKG Data Prior EKG available for review: yes When compared to previous EKG: there is no significant change EKG comments: 08/14/16 10:57 EKG from 06/04/15 shows sinus tachycardia with abnormal rhythm. - Impressions Sinus tachycardia with non-specific t-wave abnormality.
[2016-08-14 10:05] LABS: Basophils % 0.1 %; Hematocrit 31.4 % (35.3-44.9); Hemoglobin 9.5 g/dL (11.5-15.4); Lymphocytes # 0.2 K/mcL (0.6-4.6); Mean Corpuscular HGB Conc 30.3 g/dL (31.6-35.5); Mean Corpuscular Hemoglobin 28.9 pg (28.0-33.3); Mean Corpuscular Volume 95.4 fL (83.0-100.0); Mean Platelet Volume 8.8 fL (9.4-12.4); Monocytes # 0.8 K/mcL (0.0-1.3); Monocytes % 3.5 %; Neutrophils # 20.7 K/mcL (1.6-8.9); Platelet Count 392 K/mcL (140-400); Red Blood Count 3.29 M/mcL (3.82-4.97); Red Cell Distribution Width 14.3 % (11.5-14.5); Segmented Neutrophils % 94.4 %
[2016-08-14 10:08] LABS: INR 1.3; Prothrombin Time 14.2 Seconds (9.4-12.1)
[2016-08-14 10:15] LABS: Alanine Aminotransferase 17 Units/L (0-55); Albumin 1.9 g/dL (3.5-5.0); Albumin/Globulin Ratio 0.6 (1.1-2.2); Alkaline Phosphatase 68 Units/L (38-126); Aspartate Amino Transferase 25 Units/L (5-34); BUN/Creatinine Ratio 46 (6-26); Bilirubin,Direct 0.1 mg/dL (0.0-0.5); Bilirubin,Total 0.1 mg/dL (0.2-1.2); Blood Urea Nitrogen 39 mg/dL (7-20); Calcium 9.1 mg/dL (8.6-10.8); Carbon Dioxide 33 mEq/L (19-29); Chloride 96 mEq/L (98-109); Globulin 3.4 g/dL (2.4-3.5); Glucose 123 mg/dL (70-99); Osmolality,Calculated 293 (280-300); Potassium 4.5 mEq/L (3.5-4.5); Sodium 136 mEq/L (136-145); Total Protein 5.3 g/dL (6.0-8.3); eGFR For African Americans > 60 (> 60); eGFR For Non-African Americans > 60 (> 60)
[2016-08-14 10:16] LABS: D-Dimer 1948 ng/mLFEU (0-500)
[2016-08-14 11:00] LABS: Plt Function Epi Closure Time 66 Seconds (68-175)
[2016-08-14 11:14] VITALS: BP 141/88
[2016-08-14] MEDS ORDERED: Magic Mouthwash 10 ML UD Cup PO PRN (11:58)
[2016-08-14] MEDS ORDERED: Ibuprofen 600 MG TABLET PO PRN ×2 (11:58→12:30)
[2016-08-14] MEDS ORDERED: *HR* LORazepam 1 MG TABLET PO PRN (11:58)
[2016-08-14] MEDS ORDERED: NON-FORMULARY MEDICATION 1 EACH EACH (Oxygen [Oxygen] 4 L) NS SCH (12:00)
[2016-08-14] MEDS: *HR* OxyCODONE Immed Rel 5 MG TABLET PO PRN ×2 (12:38→17:17)
[2016-08-14] MEDS: Insulin LISPRO 300 UNITS/3 ML VIAL SQ SCH ×2 (12:39→16:48)
--- NOTE | 2016-08-14 15:23 | Event Note ---
Date of Encounter: 08/14/16 Time of Encounter: 15:17 This is an event note for the palliative care service: Patient was seen at bedside. I spoke with the patient regarding her reason for admission. She states that she could not use her left arm and she had a "stroke ". We then discussed the patient's medical history and she is states that she has cancer and no longer wishes to receive treatments for this cancer. We then discussed her current home situation and services provided. She states that she lives at home with her significant other, who is also her power of defense attorney , and receives home health services 3 days a week. She states that these services work well for her and wants to continue these when she goes back home. I then brought up the concept of hospice and asked the patient if she ever heard of this. Patient stated to me that she understood what hospice was and did not feel that she was ready for hospice at this time. I tried to discuss what hospice could do for her further however she continued to state that she is not interested in the services that hospice could provide at this time. I then began to discuss CODE STATUS. At the beginning of the CODE STATUS discussion the patient stated that she was full code, understood what this meant , and wanted to remain a full code. Her significant other did ask what other options for CODE STATUS there were so I explained in detail what full code, DNR CCA, DNR CC meant. The patient did state that she did not think she would want a breathing tube but would want chest compressions and other resuscitative measures. I did discuss that part of the DNR CCA/DNI order would not involve chest compressions and that a successful cardiac resuscitation effort would require a breathing tube to be placed. It was at this time that the patient stated that she needed to use the restroom. I assisted the patient to the bedside commode and stepped out of the room and told the patient and significant other to press the call light when they were ready for me to come back in and help her into bed and further discussion. After 10 or 15 minutes I knocked on the door and reentered the room and the patient stated that she wanted to get back into bed, wanted her pain medication, wanted to rest, and then wanted to go home. The patient did not want to speak to me anymore. The patient refused examination. Patient's goals of care were clearly stated as returning home with home health, she is refusing hospice services at this time. CODE STATUS remains full. This was discussed with the primary team and they are aware of the patient's stated goals.
--- NOTE | 2016-08-14 17:33 | Physician Discharge Referral ---
Home Health/Hosp Referral Info Transfer to: Home Health Attending Provider: Marcelo Cook CNP Provider in Charge Post Discharge: PCP - Diagnosis (1) Sepsis Priority: Primary Status: Acute (2) Difficulty breathing Priority: Primary Status: Acute (3) Pleural effusion Priority: Primary Status: Chronic (4) Intractable pain Priority: Secondary Status: Chronic (5) Generalized weakness Priority: Secondary Status: Chronic (6) Asthma Priority: Secondary Status: Chronic (7) COPD (chronic obstructive pulmonary disease) Priority: Secondary Status: Chronic (8) Diabetes 1.5, 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 (9) GERD (gastroesophageal reflux disease) Priority: Secondary Status: Chronic (10) Hyperlipidemia Priority: Secondary Status: Chronic (11) Hypertension Priority: Secondary Status: Chronic (12) SCLC (small cell lung carcinoma) Priority: Secondary Status: Chronic (13) Anxiety Priority: Secondary Status: Chronic (14) DVT prophylaxis Priority: Secondary Status: Acute - Respiratory Orders Smoking Cessation: Smoking cessation has been advised. For more information, call the [place] Tobacco Quit Line at 3-296-CNIE-NOW. - Diet/Nutrition Diet/Nutrition Orders: Cardiac - Activity Activity Orders: Up ad marilee - Services Needed Following services are medically necessary services: Home Health Aide, Physical Therapy, Occupational Therapy Other Treatments: Pleurx drainage 3x per week. - Transfer Medications Home Medications: Aspirin/Calcium Carbonate/Mag [Aspirin Buffered 325 mg Tab] 325 mg PO DAILY 01/25 [History] Potassium Chloride 20 meq PO DAILY #30 tab.er.prt 04/19/16 [Rx] Acetaminophen [Tylenol] 1,000 mg PO Q6HR PRN #120 tablet 05/03/16 [Rx] Ibuprofen [Motrin] 600 mg PO Q8HR PRN #90 tablet 05/03/16 [Rx] Albuterol Sulfate [Albuterol Inhaler] 2 puff IH Q4H PRN 05/19/16 [History] Dexamethasone [Decadron] 4 mg PO BID 05/23/16 [History] Docusate [Colace] 100 mg PO BID #100 capsule 05/23/16 [Rx] Nicotine Patch [Nicoderm] 14 mg TD DAILY #14 patch.td24 05/23/16 [Rx] Polyethylene Glycol 3350 [MiraLAX] 17 gm PO DAILY PRN #30 powd.pack 05/23/16 [Rx ] Sennosides [Senna] 17.2 mg PO BID #100 tablet 05/23/16 [Rx] Magic Mouthwash [Magic Mouthwash BLM] 10 ml PO QID PRN #240 ml 05/29/16 [Rx] Oxycodone HCl 5 mg PO BID PRN #60 capsule 06/27/16 [Rx] Sertraline [Zoloft] 50 mg PO DAILY #30 tablet 06/27/16 [Rx] Bumetanide [Bumex] 0.5 mg PO DAILY #30 tablet 07/15/16 [Rx] LORazepam [Ativan] 1 mg PO BID PRN #60 tablet 07/18/16 [Rx] Lisinopril [Zestril] 10 mg PO DAILY #30 tablet 07/18/16 [Rx] Ondansetron HCl [Zofran] 4 mg PO Q6HR PRN #20 tablet 07/18/16 [Rx] Prochlorperazine Maleate [Compazine] 10 mg PO Q6HR PRN #30 tablet 07/18/16 [Rx] TraZODone 50 mg PO HS #30 tablet 07/18/16 [Rx] Oxycodone HCl 10 mg PO BID #60 tab 08/01/16 [Rx] Zolpidem [Ambien] 5 mg PO HS PRN #30 tablet 08/05/16 [Rx] Oxygen 4 l NS CONT 08/13/16 [History] Allergies/Adverse Reactions: Allergies Bee Pollen Allergy (Verified 08/01/16 14:13) Anaphylaxis Penicillins Allergy (Verified 08/01/16 14:13) Hives Certification: Further, I certify that my clinical findings support that this patient is homebound (i.e. absences from home require considerable and taxing effort and are for medical reasons or congregation services or infrequently or short duration when for other reasons) because: Homebound Reason: Severity of cardiac or pulmonary status limits activity tolerance Attestation: My signature below is to certify that this patient is under my care and that I, or nurse practitioner, or a physician's event marketing assistant working with me, has a face-to -face encounter with this patient.
--- NOTE | 2016-08-14 17:42 | Discharge Summary ---
Date of Encounter: 08/14/16 Time of Encounter: 17:39 - Discharge Diagnosis (1) Sepsis Priority: Primary Status: Acute Qualifiers: Sepsis type: sepsis due to unspecified organism Qualified Code(s): A41.9 - Sepsis, unspecified organism (2) Difficulty breathing Priority: Primary Status: Acute (3) Pleural effusion Priority: Primary Status: Chronic (4) Intractable pain Priority: Primary Status: Acute (5) Generalized weakness Priority: Primary Status: Acute (6) Asthma Priority: Secondary Status: Chronic Qualifiers: Asthma complication type: uncomplicated Qualified Code(s): J45.909 - Unspecified asthma, uncomplicated (7) COPD (chronic obstructive pulmonary disease) Priority: Secondary Status: Chronic Qualifiers: COPD type: unspecified COPD Qualified Code(s): J44.9 - Chronic obstructive pulmonary disease, unspecified (8) Diabetes 1.5, 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 (9) GERD (gastroesophageal reflux disease) Priority: Secondary Status: Chronic Qualifiers: Esophagitis presence: esophagitis presence not specified Qualified Code(s) : K21.9 - Gastro-esophageal reflux disease without esophagitis (10) Hyperlipidemia Priority: Secondary Status: Chronic Qualifiers: Hyperlipidemia type: unspecified Qualified Code(s): E78.5 - Hyperlipidemia , unspecified (11) Hypertension Priority: Secondary Status: Chronic Qualifiers: Hypertension type: essential hypertension Qualified Code(s): I10 - Essential (primary) hypertension (12) SCLC (small cell lung carcinoma) Priority: Secondary Status: Chronic Qualifiers: Laterality: unspecified laterality Qualified Code(s): C34.90 - Malignant neoplasm of unspecified part of unspecified bronchus or lung (13) Anxiety Priority: Secondary Status: Chronic (14) DVT prophylaxis Priority: Secondary Status: Acute - Discharge Medications Home Medications: Aspirin/Calcium Carbonate/Mag [Aspirin Buffered 325 mg Tab] 325 mg PO DAILY 01/25 [History] Potassium Chloride 20 meq PO DAILY #30 tab.er.prt 04/19/16 [Rx] Acetaminophen [Tylenol] 1,000 mg PO Q6HR PRN #120 tablet 05/03/16 [Rx] Ibuprofen [Motrin] 600 mg PO Q8HR PRN #90 tablet 05/03/16 [Rx] Albuterol Sulfate [Albuterol Inhaler] 2 puff IH Q4H PRN 05/19/16 [History] Dexamethasone [Decadron] 4 mg PO BID 05/23/16 [History] Docusate [Colace] 100 mg PO BID #100 capsule 05/23/16 [Rx] Nicotine Patch [Nicoderm] 14 mg TD DAILY #14 patch.td24 05/23/16 [Rx] Polyethylene Glycol 3350 [MiraLAX] 17 gm PO DAILY PRN #30 powd.pack 05/23/16 [Rx ] Sennosides [Senna] 17.2 mg PO BID #100 tablet 05/23/16 [Rx] Magic Mouthwash [Magic Mouthwash BLM] 10 ml PO QID PRN #240 ml 05/29/16 [Rx] Oxycodone HCl 5 mg PO BID PRN #60 capsule 06/27/16 [Rx] Sertraline [Zoloft] 50 mg PO DAILY #30 tablet 06/27/16 [Rx] Bumetanide [Bumex] 0.5 mg PO DAILY #30 tablet 07/15/16 [Rx] LORazepam [Ativan] 1 mg PO BID PRN #60 tablet 07/18/16 [Rx] Lisinopril [Zestril] 10 mg PO DAILY #30 tablet 07/18/16 [Rx] Ondansetron HCl [Zofran] 4 mg PO Q6HR PRN #20 tablet 07/18/16 [Rx] Prochlorperazine Maleate [Compazine] 10 mg PO Q6HR PRN #30 tablet 07/18/16 [Rx] TraZODone 50 mg PO HS #30 tablet 07/18/16 [Rx] Oxycodone HCl 10 mg PO BID #60 tab 08/01/16 [Rx] Zolpidem [Ambien] 5 mg PO HS PRN #30 tablet 08/05/16 [Rx] Oxygen 4 l NS CONT 08/13/16 [History] Allergies/Adverse Reactions: Allergies Bee Pollen Allergy (Verified 08/01/16 14:13) Anaphylaxis Penicillins Allergy (Verified 08/01/16 14:13) Hives Procedures/tests Complete & Pending: Procedures Performed prior 72 hours Category Date Time Status MR head/brain wo con [MR] Routine MRI 08/14/16 08:53 Ordered Patient refused MRI order and IV placement and medications stating she did not want any more procedures or tests. Date of admission: 08/14/16 08:36 Primary care physician: PCP NO Consults: 08/14/16 14:14 Consult to Palliative Care [CONS] Routine Comment: Patient is refusing testing, IV insertion and meds Consulting Provider: Palliative Care Vanessa Discharging clinician: Marcelo Cook Anticipated date of discharge: 08/14/16 - Patient Status Disposition: Left Against Medical Advice Condition: Fair Functional capacity at discharge: independent ambulation Overall status at discharge: patient is not back to baseline - Discharge Instructions Follow Up With: NO,PCP [Primary Care Provider] - - Diet and Activity Activity: as per physical therapy, resume usual activities as tolerated Diet: other (Patient to follow cardiac diet) Hospital course: Ms. Guzman is a 65 year old female who present from the [facility] with a chief complaint of left-sided weakness/paralysis due to a stroke she suffered yesterday (08/13/16) at 19:00. Reports this weakness has worsened since yesterday and that she is experiencing numbness and tingling throughout her body. Patient also reports difficulty breathing/SOB related to small cell lung cancer and a recurrent pleural effusion of the right lung. 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 Kinney (PCP) stopped this medication due to abdominal discomfort and resulting anxiety attacks. Reports she is currently no longer on anticoagulation therapy. - Time Spent with Patient Total time spent providing and/or coordinating discharge services: >2 hours for assessment and examination, documentation review, order placement, counseling and follow-up, referral orders, and continuation of care planning. Greater than 30 minutes - Constitutional Vitals: Temp Pulse Resp BP Pulse Ox 98.2 F 121 15 141/88 94 08/14/16 11:13 08/14/16 11:13 08/14/16 11:13 08/14/16 11:13 08/14/16 11:13 General appearance: Present: mild distress, A&O X 3, answers questions appropriately Exam: Patient appears mildly confused upon examination. Answers questions appropriately, but expresses she is not sure what is going to happen to her and that if her insurance doesn't pay for this treatment she will pay for it out-of- pocket. Patient did not answer all questions verbally, but would slowly nod yes or no when asked again. Semi-alert and oriented x3. - Head Head exam: Present: atraumatic, normocephalic Additional comments: Patient presents with all-over hair loss due to cancer treatments. - Eye Eye exam: Present: PERRL, conjuntiva pink, sclera anicteric Pupils: Present: PERRL - ENT ENT exam: Present: normal exam - Neck Neck exam general surgery: Present: supple, trachea midline. Absent: lymphadenopathy - Respiratory Respiratory exam: Present: decreased breath sounds, respiratory distress, rhonchi, wheezes (Patient presents with mild respiratory distress upon examination. Currently has Pleurx drain in place for recurrent pleural effusion of right lung. Audible wheezes on exam and auscultation reveals wheezes, rhonchi , and diminished breath sounds bilaterally in all lobes. Patient originally seated at bedside during examination, but stated she was having difficulty breathing in this position. Patient placed in bed with HOB at 45 degrees and reported some improvement in breathing with position change.) Additional comments: Patient presents with mild respiratory distress upon examination. Currently has Pleurx drain in place for recurrent pleural effusion of right lung. Audible wheezes on exam and auscultation reveals wheezes, rhonchi, and diminished breath sounds bilaterally in all lobes. Patient originally seated at bedside during examination, but stated she was having difficulty breathing in this position. Patient placed in bed with HOB at 45 degrees and reported some improvement in breathing with position change. - Expanded Respiratory Exam Location: decreased breath sounds: Left, Right, Upper, Lower, rhonchi: Left, Right, Upper, Lower, wheezes: Left, Right, Upper, Lower - Cardiovascular Cardiovascular exam: Present: tachycardia Additional comments: Patient tachycardic upon examination. HR at 114 bpm. Peripheral pulses present and strong. - GI/Abdominal GI/Abdominal exam: Present: normal bowel sounds, soft, no peritoneal signs. Absent: distended, tenderness Additional comments: Patient has history of GERD and reports nausea due to reflux. Reports no current GI distress or upset at the moment. - Rectal Rectal exam: Present: deferred - Additional comments: exam deferred. - Extremities Exam Extremities exam: Present: warm, radial pulses palpable and symetrical. Absent : calf tenderness, cyanotic, pedal edema - Expanded Upper Extremities Exam General: Present: normal inspection (Upon examination, patient shows equal strength bilaterally in upper extremities when squeezing, pushing, and pulling.) - Expanded Lower Extremities Exam Hip exam: Present: normal inspection (Upon examination, patient shows equal strength bilaterally in lower extremities when pushing and pulling.) - Back Exam Back exam: Present: normal inspection - Neurological Exam Neurological exam: Present: oriented X3 Additional comments: Patient exhibits mild mental alteration during examination as evidenced by slow response to questions and wandering conversation. A & O x3. - Psychiatric Psychiatric exam: Present: anxious Additional comments: Patient exhibits mild anxiety related to difficulty breathing and SOB. - Skin Skin exam: Present: dry, intact, warm
[2016-08-14] MEDS ORDERED: Insulin LISPRO 300 UNITS/3 ML VIAL SQ SCH (21:00)
[2016-08-14] MEDS ORDERED: *HR* OxyCODONE Immed Rel 5 MG TABLET PO SCH (21:00)
[2016-08-14] MEDS ORDERED: traZODone 50 MG TABLET PO SCH (21:00)
--- NOTE | 2016-08-15 05:39 | Electrocardiograph Report ---
[address] [place] [address] Test Date: 2016-08-13 Pat Name: Nova Guzman Department: 104 Room: 3B39 Gender: F Account Contact Associate: ALMA DELIA : 1950 Requested By: Dianelys Jesus Order Number: [id number] Reading MD: Carlin Wallace MD Measurements Intervals [place] Rate: 113 P: 54 CT: 128 QRS: 61 QRSD: 94 T: 0 QT: 302 QTc: 369 Interpretive Statements SINUS TACHYCARDIA Electronically Signed On 08-15-2016 5:37:48 EDT by Carlin Wallace MD
[2016-08-15] MEDS ORDERED: Bumetanide 1 MG TABLET PO SCH (09:00)
[2016-08-15] MEDS ORDERED: Aspirin Enteric Coated 325 MG Tablet PO SCH (09:00)
[2016-08-15] MEDS ORDERED: Nicotine 14 MG PATCH.TD24 TD SCH (09:00)
[2016-08-15] MEDS ORDERED: Levofloxacin 750 MG/150 ML 750 MG/150 ML BAG IVPB ONE (09:19)
--- NOTE | 2016-08-15 13:23 | Electrocardiograph Report ---
[address] [address] Test Date: 2016-08-13 Pat Name: Nova Guzman Department: 104 Room: 3B Gender: F Caregivers Non Medical: ALMA DELIA : 1950 Requested By: Matilda Villa Order Number: [id number] Reading MD: Carlin Wallace MD Measurements Intervals [place] Rate: 114 P: 52 ME: 128 QRS: 63 QRSD: 94 T: 1 QT: 304 QTc: 371 Interpretive Statements SINUS TACHYCARDIA Electronically Signed On 08-15-2016 13:21:32 EDT by Carlin Wallace MD
== END 2016-08-14 20:35 | disposition left against medical advice (07) ==
LOC: EMEROO 19:35 → 3BNU 19:35
PROVIDERS: ADMIT Internal Medicine; ATTEND Nurse Practitioner Family

== ENCOUNTER 2016-08-19 21:21 | Inpatient (IN) ==
[2016-08-19] MEDS ORDERED: 0.9 % Sodium Chloride 500 ML IVC ONE (21:33)
[2016-08-19 22:05] LABS: Basophils % 0.1 %; Hematocrit 33.3 % (35.3-44.9); Hemoglobin 10.3 g/dL (11.5-15.4); Immature Granulocytes % 1.3 % (0-4); Lymphocytes # 0.2 K/mcL (0.6-4.6); Lymphocytes % 0.7 %; Mean Corpuscular HGB Conc 30.9 g/dL (31.6-35.5); Mean Corpuscular Hemoglobin 28.9 pg (28.0-33.3); Mean Corpuscular Volume 93.3 fL (83.0-100.0); Mean Platelet Volume 9.2 fL (9.4-12.4); Monocytes % 2.4 %; Neutrophils # 21.7 K/mcL (1.6-8.9); Nucleated Red Blood Cells 0.2 /100 WBC (0); Platelet Count 217 K/mcL (140-400); Red Blood Count 3.57 M/mcL (3.82-4.97); Red Cell Distribution Width 15.1 % (11.5-14.5); Segmented Neutrophils % 95.5 %
[2016-08-19 22:09] LABS: Monocytes # 0.5 K/mcL (0.0-1.3)
--- NOTE | 2016-08-19 22:12 | Emergency Department Note ---
Disposition Clinical Impression: Dehydration, Hyperkalemia Disposition: Admitted As Inpatient Referrals: NO,PCP [Primary Care Provider] - Forms: ED Satisfaction Letter SOB HPI - General Chief Complaint: ED Shortness of Breath/Dyspnea Stated Complaint: SARI with end stage lung Ca Time Seen by Provider: 08/19/16 21:28 Source: EMS Nursing Notes Reviewed: Yes Vital Signs Reviewed: Yes - History of Present Illness Patient presents to complaint of shortness of breath for the past month. Patient stated he got worse home. Patient noted to have a lower oxygen saturation 85% on their own O2 question improved with oxygen from the EMS squad. Patient complains of just feeling generally bad all over. Positive [place] states she is not drink or eat anything the past 3 days and she has not had any elimination of the past 2 days. Patient denies chest pain associated. - Related Data Home Medications Medication Instructions Recorded Confirmed Aspirin/Calcium Carbonate/Mag 325 mg PO DAILY 03/20/16 08/13/16 [Aspirin Buffered 325 mg Tab] Albuterol Sulfate [Albuterol 2 puff IH Q4H PRN 05/19/16 08/13/16 Inhaler] Dexamethasone [Decadron] 4 mg PO BID 05/23/16 08/01/16 Oxygen 4 l NS CONT 08/13/16 08/13/16 Previous Rx's Medication Instructions Recorded Potassium Chloride 20 meq PO DAILY #30 tab.er.prt 04/19/16 Acetaminophen [Tylenol] 1,000 mg PO Q6HR PRN #120 tablet 05/03/16 Ibuprofen [Motrin] 600 mg PO Q8HR PRN #90 tablet 05/03/16 Docusate [Colace] 100 mg PO BID #100 capsule 05/23/16 Nicotine Patch [Nicoderm] 14 mg TD DAILY #14 patch.td24 05/23/16 Polyethylene Glycol 3350 [MiraLAX] 17 gm PO DAILY PRN #30 powd.pack 05/23/16 Sennosides [Senna] 17.2 mg PO BID #100 tablet 05/23/16 Magic Mouthwash [Magic Mouthwash 10 ml PO QID PRN #240 ml 05/29/16 BLM] Oxycodone HCl 5 mg PO BID PRN #60 capsule 06/27/16 Sertraline [Zoloft] 50 mg PO DAILY #30 tablet 06/27/16 Bumetanide [Bumex] 0.5 mg PO DAILY #30 tablet 07/15/16 LORazepam [Ativan] 1 mg PO BID PRN #60 tablet 07/18/16 Lisinopril [Zestril] 10 mg PO DAILY #30 tablet 07/18/16 Ondansetron HCl [Zofran] 4 mg PO Q6HR PRN #20 tablet 07/18/16 Prochlorperazine Maleate 10 mg PO Q6HR PRN #30 tablet 07/18/16 [Compazine] TraZODone 50 mg PO HS #30 tablet 07/18/16 Oxycodone HCl 10 mg PO BID #60 tab 08/01/16 Zolpidem [Ambien] 5 mg PO HS PRN #30 tablet 08/05/16 Allergies Allergy/AdvReac Type Severity Reaction Status Date / Time Bee Pollen Allergy Anaphylaxis Verified 08/01/16 14:13 Penicillins Allergy Hives Verified 08/01/16 14:13 All systems ED: reviewed and negative except as stated. Past Medical History - Past Medical History Source: patient, obtained from family Medical history: Reports: arthritis, asthma, cancer, COPD, diabetes, GERD, hyperlipidemia, hypertension, other Surgical history: Reports: , hysterectomy Psychiatric history: Reports: anxiety BENEFITS TECHNICIAN history: Reports: no BENEFITS TECHNICIAN history - Social History Smoking Status: Former smoker Smokeless Tobacco Status: No Alcohol use: Reports: none Drug use: Reports: none Physical Exam - General Limitations: no limitations General appearance: alert, in no apparent distress - Head Head exam: atraumatic, normocephalic, normal inspection - Eye Eye exam: Present: PERRL, EOMI - ENT ENT exam: normal exam, normal oropharynx, mucous membranes moist - Neck Neck exam: Present: normal inspection, full ROM, trachea midline - Chest Chest inspection: Present: normal inspection, symmetric chest wall rise - Respiratory Respiratory exam: Present: wheezes, prolonged expiratory phase - Cardiovascular Cardiovascular exam: Present: normal rhythm, tachycardia, normal heart sounds - Abdominal Exam Abdominal exam: Present: soft, Non-Tender. Absent: tenderness, distention, guarding, rebound, rigidity - Extremities Exam Extremities exam: Present: normal inspection, full ROM. Absent: tenderness, pedal edema - Back Exam Back exam: Present: normal inspection, full ROM. Absent: tenderness - Neurological Exam Neurological exam: Present: other (Lethargic but does answer questions) - Psychiatric Psychiatric exam: Present: depressed - Skin Skin exam: Present: pallor, other (Cool, dry, intact) Course Vital Signs Temperature 97.8 F 08/19/16 21:23 Pulse Rate 127 08/19/16 21:23 Respiratory Rate 20 08/19/16 21:23 Blood Pressure 85/58 08/19/16 21:23 O2 Sat by Pulse Oximetry 91 08/19/16 21:23 Temperature 97.8 F 08/19/16 21:23 Pulse Rate 127 08/19/16 21:23 Respiratory Rate 20 08/19/16 21:23 Blood Pressure 85/58 08/19/16 21:23 O2 Sat by Pulse Oximetry 91 08/19/16 21:23 Oxygen Delivery Oxygen Delivery Room Air Shortness of Breath/Dyspnea - Differential Diagnosis Likely: acute exacerbation of chronic obstructive airways disease, congestive heart failure, pneumonia, pulmonary embolism, pneumothorax - Lab Data Lab results reviewed: Yes I reviewed the patient's lab results. Result diagrams: 08/19/16 21:57 08/19/16 21:57 Lab Results 08/19/16 08/19/16 08/19/16 Range/Units 21:57 21:57 21:57 WBC 22.7 H (4.3-11.1) K/mcL RBC 3.57 L (3.82-4.97) M/mcL Hgb 10.3 L (11.5-15.4) g/dL Hct 33.3 L (35.3-44.9) % MCV 93.3 (83.0-100.0) fL MCH 28.9 (28.0-33.3) pg MCHC 30.9 L (31.6-35.5) g/dL RDW 15.1 H (11.5-14.5) % Plt Count 217 (140-400) K/mcL MPV 9.2 L (9.4-12.4) fL Immature Gran % 1.3 (0-4) % Seg Neutrophils % 95.5 % Lymphocytes % 0.7 % Monocytes % 2.4 % Eosinophils % 0.0 % Basophils % 0.1 % Neutrophils # 21.7 H (1.6-8.9) K/mcL Lymphocytes # 0.2 L (0.6-4.6) K/mcL Monocytes # 0.5 (0.0-1.3) K/mcL Eosinophils # 0.0 (0.0-0.6) K/mcL Basophils # 0.0 (0.0-0.2) K/mcL Nucleated RBCs/100 WBC 0.2 H (0) /100 WBC Hypersegmented Neuts Present A (Not Present) Platelet Estimate Normal (Normal) APTT 21.9 L (26.0-36.0) Seconds Sodium (136-145) mEq/L Potassium (3.5-4.5) mEq/L Chloride (98-109) mEq/L Carbon Dioxide (19-29) mEq/L BUN (7-20) mg/dL Creatinine (0.57-1.11) mg/dL Est GFR ( Amer) (> 60) Est GFR (Non-Af Amer) (> 60) BUN/Creatinine Ratio (6-26) Glucose (70-99) mg/dL Calculated Osmolality (280-300) Lactic Acid (0.5-2.2) mmol/L Calcium (8.6-10.8) mg/dL Total Bilirubin (0.2-1.2) mg/dL AST (5-34) Units/L ALT (0-55) Units/L Alkaline Phosphatase (38-126) Units/L Troponin I (0-0.03) ng/mL B-Natriuretic Peptide 82 (0-100) pg/mL Serum Total Protein (6.0-8.3) g/dL Albumin (3.5-5.0) g/dL Globulin (2.4-3.5) g/dL Albumin/Globulin Ratio (1.1-2.2) 08/19/16 08/19/16 08/19/16 Range/Units 21:57 21:57 21:57 WBC (4.3-11.1) K/mcL RBC (3.82-4.97) M/mcL Hgb (11.5-15.4) g/dL Hct (35.3-44.9) % MCV (83.0-100.0) fL MCH (28.0-33.3) pg MCHC (31.6-35.5) g/dL RDW (11.5-14.5) % Plt Count (140-400) K/mcL MPV (9.4-12.4) fL Immature Gran % (0-4) % Seg Neutrophils % % Lymphocytes % % Monocytes % % Eosinophils % % Basophils % % Neutrophils # (1.6-8.9) K/mcL Lymphocytes # (0.6-4.6) K/mcL Monocytes # (0.0-1.3) K/mcL Eosinophils # (0.0-0.6) K/mcL Basophils # (0.0-0.2) K/mcL Nucleated RBCs/100 WBC (0) /100 WBC Hypersegmented Neuts (Not Present) Platelet Estimate (Normal) APTT (26.0-36.0) Seconds Sodium 137 (136-145) mEq/L Potassium 5.8 H (3.5-4.5) mEq/L Chloride 95 L (98-109) mEq/L Carbon Dioxide 25 (19-29) mEq/L BUN 100 H (7-20) mg/dL Creatinine 1.87 H (0.57-1.11) mg/dL Est GFR ( Amer) 33 L (> 60) Est GFR (Non-Af Amer) 27 L (> 60) BUN/Creatinine Ratio 53 H (6-26) Glucose 135 H (70-99) mg/dL Calculated Osmolality 317 H (280-300) Lactic Acid 3.4 H (0.5-2.2) mmol/L Calcium 9.2 (8.6-10.8) mg/dL Total Bilirubin 0.3 (0.2-1.2) mg/dL AST 44 H (5-34) Units/L ALT 50 (0-55) Units/L Alkaline Phosphatase 166 H (38-126) Units/L Troponin I 0.03 (0-0.03) ng/mL B-Natriuretic Peptide (0-100) pg/mL Serum Total Protein 5.6 L (6.0-8.3) g/dL Albumin 1.9 L (3.5-5.0) g/dL Globulin 3.7 H (2.4-3.5) g/dL Albumin/Globulin Ratio 0.5 L (1.1-2.2) - Radiology Data Radiology results reviewed: Yes I reviewed the patient's radiology results. Chest X-Ray 08/19/16 21:29 IMPRESSION: Minimal change compared to prior study with slightly improved aeration of the right mid lung region. D/ / Rohit Cox MD / Rohit Cox MD Interpreting Provider: Rohit Cox MD - EKG Data EKG attestation: Yes I reviewed and interpreted this EKG. EKG shows normal: Reports: sinus rhythm Rate: Reports: tachycardia Critical Care Time Total Critical Care Time: 45 Attestation: Critical care performed: Time is exclusive of separately billable procedures. Time includes: direct patient care, patient reassessment, coordination of patient care, interpretation of data (laboratory data, radiology data, and respiratory data), review of patient's medical records, medical consultation and documentation of patient care. Procedures included in critical care time: Procedures excluded from critical care time:
[2016-08-19 22:20] LABS: Albumin 1.9 g/dL (3.5-5.0); Albumin/Globulin Ratio 0.5 (1.1-2.2); Bilirubin,Total 0.3 mg/dL (0.2-1.2); Calcium 9.2 mg/dL (8.6-10.8); Globulin 3.7 g/dL (2.4-3.5); Potassium 5.8 mEq/L (3.5-4.5); Total Protein 5.6 g/dL (6.0-8.3)
[2016-08-19 22:22] LABS: Hypersegmented Neutrophils Present (Not Present); Platelet Estimate Normal (Normal)
[2016-08-19] MEDS ORDERED: 0.9 % Sodium Chloride 1,000 ML IVC ONE (23:21)
[2016-08-20] MEDS ORDERED: *HR* Morphine 2 MG/ML SYRINGE IV ONE (00:41)
[2016-08-20] MEDS ORDERED: 0.9 % Sodium Chloride 500 ML IVC ONE (02:24)
[2016-08-20] MEDS ORDERED: *HR* Morphine 2 MG/ML SYRINGE IVP ONE (02:43)
[2016-08-20] MEDS ORDERED: *HR* Morphine 2 MG/ML SYRINGE ONE (02:45)
[2016-08-20] MEDS ORDERED: Naloxone 0.4 MG/ML INJ IVP PRN (03:09)
[2016-08-20] MEDS ORDERED: *HR* Promethazine 25 MG/ML VIAL IVP PRN (03:09)
--- NOTE | 2016-08-20 03:09 | Internal Med History&Physical ---
Date of Encounter: 08/20/16 Time of Encounter: 02:30 Assessment and Plan (1) Generalized pain Current visit: Yes Status: Acute Pt is on comfort measures. Started on IV morphine when necessary for pain relief. Palliative care consult. (2) Terminal care Current visit: Yes Status: Acute Patient has stage IV lung cancer. Patient opted for comfort measures. Palliative care consult and possible hospice. (3) Leucocytosis Current visit: Yes Status: Acute Chronic. No significant change recently. Qualifiers: Leukocytosis type: unspecified Qualified Code(s): D72.829 - Elevated white blood cell count, unspecified (4) Dehydration Current visit: Yes Status: Acute Due to poor oral intake. On IV fluids (5) Hyperkalemia Current visit: Yes Status: Acute was given kayexalate in the ER (6) Generalized weakness Current visit: Yes Status: Acute Possibly related to metastatic cancer (7) Physical deconditioning Current visit: Yes Status: Chronic (8) Pleural effusion Current visit: Yes Status: Chronic (9) SCLC (small cell lung carcinoma) Current visit: Yes Status: Chronic Qualifiers: Laterality: unspecified laterality Qualified Code(s): C34.90 - Malignant neoplasm of unspecified part of unspecified bronchus or lung (10) Type 2 diabetes mellitus Current visit: Yes Status: Chronic Qualifiers: Diabetes mellitus complication status: with unspecified complications Diabetes mellitus long term care social worker insulin use: with custodial use Qualified Code(s) : E11.8 - Type 2 diabetes mellitus with unspecified complications; Z79.4 - termite control service representative (current) use of insulin Internal Medicine - H&P: HPI Chief complaint: "I am going to and I am OK with it" "pain all over" Admitted From: Emergency Dept Plans for Post Hospital Care: Hospice - Home History of present illness: Ms. 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 She was recently admitted to this hospital and discharged to home hospice 2 days ago. She apparently ran out of her home pain medications about a week ago. After she went home, she did not have home pain medications and hospice did not provide pain meds. She reports pain all over and severe. She is unable to characterize the pain. She has a poor appetite and not been eating or drinking well. She has nausea. She cough with the yellowish expectoration which has been chronic. She denies fevers. Shortness of breath is stable. Denies abdominal pain. Not making much urine. She reports that she is dying and she is okay with it. ER physician discussed with the pt and family pt wants DNR CC code status. She was noted to be volume depleted and was given IV fluids. She is admitted to the hospitalist service for further management. Past Med Surg Social Fam HX - Past Medical History Medical history: arthritis, asthma, cancer, COPD, diabetes, GERD, hyperlipidemia , hypertension, other Psychiatric history: anxiety - Past Surgical History Surgical History: , hysterectomy - Social History Smoking Status: Former smoker Smokeless Tobacco Status: No Alcohol use: none Drug use: none - Family History Mother Adopted: No Family Member Ethnicity: Non- Living Status: Hx Family Cardiac Disorders: No Hx Family Respiratory Disorders: No Hx Family Cancer: No Hx Family GI Disorders: No Hx Family Endocrine Disorder: Yes (DM) Hx Family Neuromuscular Disorders: No Hx Family Neurologic Disorders: No Hx Family HEENT Disorders: No Hx Family Autoimmune Disorders: No Internal Medicine - H&P: Meds Aspirin/Calcium Carbonate/Mag [Aspirin Buffered 325 mg Tab] 325 mg PO DAILY 01/25 [History] Potassium Chloride 20 meq PO DAILY #30 tab.er.prt 04/19/16 [Rx] Acetaminophen [Tylenol] 1,000 mg PO Q6HR PRN #120 tablet 05/03/16 [Rx] Ibuprofen [Motrin] 600 mg PO Q8HR PRN #90 tablet 05/03/16 [Rx] Albuterol Sulfate [Albuterol Inhaler] 2 puff IH Q4H PRN 05/19/16 [History] Dexamethasone [Decadron] 4 mg PO BID 05/23/16 [History] Docusate [Colace] 100 mg PO BID #100 capsule 05/23/16 [Rx] Nicotine Patch [Nicoderm] 14 mg TD DAILY #14 patch.td24 05/23/16 [Rx] Polyethylene Glycol 3350 [MiraLAX] 17 gm PO DAILY PRN #30 powd.pack 05/23/16 [Rx ] Sennosides [Senna] 17.2 mg PO BID #100 tablet 05/23/16 [Rx] Magic Mouthwash [Magic Mouthwash BLM] 10 ml PO QID PRN #240 ml 05/29/16 [Rx] Oxycodone HCl 5 mg PO BID PRN #60 capsule 06/27/16 [Rx] Sertraline [Zoloft] 50 mg PO DAILY #30 tablet 06/27/16 [Rx] Bumetanide [Bumex] 0.5 mg PO DAILY #30 tablet 07/15/16 [Rx] LORazepam [Ativan] 1 mg PO BID PRN #60 tablet 07/18/16 [Rx] Lisinopril [Zestril] 10 mg PO DAILY #30 tablet 07/18/16 [Rx] Ondansetron HCl [Zofran] 4 mg PO Q6HR PRN #20 tablet 07/18/16 [Rx] Prochlorperazine Maleate [Compazine] 10 mg PO Q6HR PRN #30 tablet 07/18/16 [Rx] TraZODone 50 mg PO HS #30 tablet 07/18/16 [Rx] Oxycodone HCl 10 mg PO BID #60 tab 08/01/16 [Rx] Zolpidem [Ambien] 5 mg PO HS PRN #30 tablet 08/05/16 [Rx] Oxygen 4 l NS CONT 08/13/16 [History] Allergies Bee Pollen Allergy (Verified 08/01/16 14:13) Anaphylaxis Penicillins Allergy (Verified 08/01/16 14:13) Hives All Systems PM: A 10-system review of systems was performed and is negative for pertinent findings except as documented above in the HPI. - Constitutional Vitals: Temp Pulse Resp BP Pulse Ox 97.4 F L 123 10 77/59 93 08/20/16 02:06 08/20/16 02:06 08/20/16 02:06 08/20/16 02:06 08/20/16 02:06 Exam: General: In mild to moderate distress at the time of my evaluation HEENT: Oral mucosa is moist. conjunctival palor present. Facial swelling present Neck: No obvious neck swellings Lungs: Clear to auscultation Cardiac: Regular rate and rhythm. No significant murmurs Abdomen: Soft, non tender. Bowel sounds present Genitourinary: zhao catheter present Neurological: Alert and oriented. Psych: Not aggressive or agitated. Seems depressed Extremities: leg edema present Skin: No generalized rash Internal Med - H&P Results - Labs CBC & Chem 7: 08/19/16 21:57 08/19/16 21:57 - EKG Data -: EKG Interpreted by Myself EKG shows normal: sinus rhythm - Impressions ITS Impressions Chest X-Ray 08/19/16 21:29 IMPRESSION: Minimal change compared to prior study with slightly improved aeration of the right mid lung region. D/ / Rohit Cox MD / Rohit Cox MD Interpreting Provider: Rohit Cox MD
[2016-08-20] MEDS ORDERED: *HR* OxyCODONE Immed Rel 5 MG TABLET PO PRN (03:12)
[2016-08-20] MEDS ORDERED: Acetaminophen 325 MG TABLET PO PRN (03:13)
[2016-08-20] MEDS ORDERED: 0.9 % Sodium Chloride 1,000 ML IVC SCH (03:15)
[2016-08-20] MEDS: *HR* Morphine 2 MG/ML SYRINGE IVP PRN ×3 (04:09→10:29)
[2016-08-20] MEDS ORDERED: Atropine Sulfate 1% 40 DROP/2 ML BOTTLE SL PRN (09:58)
[2016-08-20] MEDS ORDERED: *HR* LORazepam Oral Conc 2 MG/ML SL PRN (09:59)
--- NOTE | 2016-08-20 10:23 | Palliative - Consult Note ---
Date of Encounter: 08/20/16 Time of Encounter: 10:14 - Assessment and Plan (1) Goals of care, counseling/discussion Current Visit: Yes Status: Acute Assessment and plan: Discussed plan of care with significant other/POA. Goal is comfort care. Family aware of prognosis. Will likely transition to hospice care. Discussed case with hospitalist. (2) Small cell carcinoma of right lung Current Visit: No Status: Chronic (3) Cancer associated pain Current Visit: Yes Status: Chronic Assessment and plan: Morphine 2mg IV every hour as needed for pain control. Discussed plan of care with primary nurse, family, hospice services. Palliative-CN HPI - Data of Consult Patient: known to practice within the last 3 years Requesting Physician: Donovan Mccormack MD Primary Care Provider: PCP NO - Consult Narrative Palliative Care/Comfort Measures: Palliative care Reason for consult: Goals of care, hospice care History of present illness: Ms. Guzman is a 65 year old female history of small cell lung cancer diagnosed in March 2016. Ms. Guzman self enrolled into [facility] on 08/18/2016. The following day, the patient developed pain crisis and ran out of her medications. During her time of distress, she asked her significant other to contact the emergency services stating "I am dying". Her significant other contacted hospice services, but her needs could not be met. At that time, she was transferred to [facility] by the emergency services for further care. While in the emergency department, the patient continued to support comfort care measures with no invasive procedures or diagnostics. She was treated with morphine for her pain crisis and transferred to inpatient status. Her significant other reports overall decline in her health over the past 4 days. She has not had adequate oral intake and 4 days, with only sips of fluids. He denies fever, nausea, vomiting, constipation , diarrhea. Significant other reports sleeping all day, and so weak that she cannot stand on her own 2 feet. The palliative care team was consulted for symptom management and goals of care. CC: Donovan Mccormack MD Past Med Surg Social Fam HX - Past Medical History Medical history: arthritis, asthma, cancer (small cell lung CA), COPD, diabetes , GERD, hyperlipidemia, hypertension, other Psychiatric history: anxiety - Past Surgical History Surgical History: , hysterectomy - Social History Smoking Status: Former smoker Smokeless Tobacco Status: No Alcohol use: none Drug use: none Current living situation: Home, With Family Activity Level: Bed bound - Family History Mother Adopted: No Family Member Ethnicity: Non- Living Status: Hx Family Cardiac Disorders: No Hx Family Respiratory Disorders: No Hx Family Cancer: No Hx Family GI Disorders: No Hx Family Endocrine Disorder: Yes (DM) Hx Family Neuromuscular Disorders: No Hx Family Neurologic Disorders: No Hx Family HEENT Disorders: No Hx Family Autoimmune Disorders: No Medications and Allergies Aspirin/Calcium Carbonate/Mag [Aspirin Buffered 325 mg Tab] 325 mg PO DAILY 01/25 [History] Potassium Chloride 20 meq PO DAILY #30 tab.er.prt 04/19/16 [Rx] Acetaminophen [Tylenol] 1,000 mg PO Q6HR PRN #120 tablet 05/03/16 [Rx] Ibuprofen [Motrin] 600 mg PO Q8HR PRN #90 tablet 05/03/16 [Rx] Albuterol Sulfate [Albuterol Inhaler] 2 puff IH Q4H PRN 05/19/16 [History] Dexamethasone [Decadron] 4 mg PO BID 05/23/16 [History] Docusate [Colace] 100 mg PO BID #100 capsule 05/23/16 [Rx] Nicotine Patch [Nicoderm] 14 mg TD DAILY #14 patch.td24 05/23/16 [Rx] Polyethylene Glycol 3350 [MiraLAX] 17 gm PO DAILY PRN #30 powd.pack 05/23/16 [Rx ] Sennosides [Senna] 17.2 mg PO BID #100 tablet 05/23/16 [Rx] Magic Mouthwash [Magic Mouthwash BLM] 10 ml PO QID PRN #240 ml 05/29/16 [Rx] Sertraline [Zoloft] 50 mg PO DAILY #30 tablet 06/27/16 [Rx] Bumetanide [Bumex] 0.5 mg PO DAILY #30 tablet 07/15/16 [Rx] LORazepam [Ativan] 1 mg PO BID PRN #60 tablet 07/18/16 [Rx] Lisinopril [Zestril] 10 mg PO DAILY #30 tablet 07/18/16 [Rx] Ondansetron HCl [Zofran] 4 mg PO Q6HR PRN #20 tablet 07/18/16 [Rx] Prochlorperazine Maleate [Compazine] 10 mg PO Q6HR PRN #30 tablet 07/18/16 [Rx] TraZODone 50 mg PO HS #30 tablet 07/18/16 [Rx] Oxycodone HCl 10 mg PO BID #60 tab 08/01/16 [Rx] Zolpidem [Ambien] 5 mg PO HS PRN #30 tablet 08/05/16 [Rx] Oxygen 4 l NS CONT 08/13/16 [History] Apixaban [Eliquis] 5 mg PO BID 08/20/16 [History] Allergies Bee Pollen Allergy (Verified 08/01/16 14:13) Anaphylaxis Penicillins Allergy (Verified 08/01/16 14:13) Hives ROS unobtainable: due to mental status Palliative Care-Exam - Constitutional Vitals: Temp Pulse Resp BP Pulse Ox 97.4 F L 123 10 77/59 93 08/20/16 02:06 08/20/16 02:06 08/20/16 02:06 08/20/16 02:06 08/20/16 02:06 General appearance: Absent: cooperative Exam: 65 year old female appearing chronically ill, unresponsive and ashen in color. Family at bedside. - Head Head Exam: Present: atraumatic - Eye Eye exam: Absent: EOMI (not following commands) - ENT ENT exam: Present: mucous membranes dry - Respiratory Respiratory exam: Present: accessory muscle use, rales, rhonchi, tachypnea - Expanded Respiratory Exam Location: rales: Left, Right, Lower, rhonchi: Left, Right, Upper - Cardiovascular Cardiovascular exam: Present: RRR. Absent: bradycardia, tachycardia - GI/Abdominal Exam GI/Abdominal exam: Present: diminished bowel sounds, soft. Absent: firm, guarding, tenderness - Rectal Rectal exam: Present: deferred - Catheter Type: Urethral ([place]) - Extremities Exam Extremities exam: Absent: normal capillary refill, normal inspection (cool clamy extremities) - Neurological Exam Neurological exam: Absent: alert Additional comments: eyes open, non-verbal, does not follow commands, corneal reflex intact, - Psychiatric Psychiatric exam: Absent: agitated, anxious - Skin Additional comments: skin cool/clammy, ashen in color. Internal Medicine - CN: Reslt - Labs CBC & Chem 7: 08/19/16 21:57 08/19/16 21:57 Consult Discharge Plan - Plan Referrals: NO,PCP [Primary Care Provider] - Palliative Quality Palliative Quality: Screen for Code Status: Yes, Screen for Goals of Care: Yes, Screen for Pain: Yes, If Pain Regimen Started, Initiate Bowel Regimen: Yes, Screen for Nausea/Vomitting: Yes
--- NOTE | 2016-08-20 10:44 | Discharge Summary ---
Date of Encounter: 08/20/16 Time of Encounter: 10:41 - Discharge Diagnosis (1) Terminal care Priority: Primary Status: Acute (2) Dehydration Priority: Secondary Status: Acute (3) Generalized pain Priority: Secondary Status: Acute (4) Generalized weakness Priority: Secondary Status: Acute (5) Hyperkalemia Priority: Secondary Status: Acute (6) Leucocytosis Priority: Secondary Status: Acute Qualifiers: Leukocytosis type: unspecified Qualified Code(s): D72.829 - Elevated white blood cell count, unspecified (7) Physical deconditioning Priority: Secondary Status: Chronic (8) Pleural effusion Priority: Secondary Status: Chronic (9) Type 2 diabetes mellitus Priority: Secondary Status: Chronic Qualifiers: Diabetes mellitus complication status: with unspecified complications Diabetes mellitus termite treater insulin use: with termite treater use Qualified Code(s) : E11.8 - Type 2 diabetes mellitus with unspecified complications; Z79.4 - assistant terminal manager (current) use of insulin - Discharge Medications Home Medications: Aspirin/Calcium Carbonate/Mag [Aspirin Buffered 325 mg Tab] 325 mg PO DAILY 01/25 [History] Potassium Chloride 20 meq PO DAILY #30 tab.er.prt 04/19/16 [Rx] Acetaminophen [Tylenol] 1,000 mg PO Q6HR PRN #120 tablet 05/03/16 [Rx] Ibuprofen [Motrin] 600 mg PO Q8HR PRN #90 tablet 05/03/16 [Rx] Albuterol Sulfate [Albuterol Inhaler] 2 puff IH Q4H PRN 05/19/16 [History] Dexamethasone [Decadron] 4 mg PO BID 05/23/16 [History] Docusate [Colace] 100 mg PO BID #100 capsule 05/23/16 [Rx] Nicotine Patch [Nicoderm] 14 mg TD DAILY #14 patch.td24 05/23/16 [Rx] Polyethylene Glycol 3350 [MiraLAX] 17 gm PO DAILY PRN #30 powd.pack 05/23/16 [Rx ] Sennosides [Senna] 17.2 mg PO BID #100 tablet 05/23/16 [Rx] Magic Mouthwash [Magic Mouthwash BLM] 10 ml PO QID PRN #240 ml 05/29/16 [Rx] Sertraline [Zoloft] 50 mg PO DAILY #30 tablet 06/27/16 [Rx] Bumetanide [Bumex] 0.5 mg PO DAILY #30 tablet 07/15/16 [Rx] LORazepam [Ativan] 1 mg PO BID PRN #60 tablet 07/18/16 [Rx] Lisinopril [Zestril] 10 mg PO DAILY #30 tablet 07/18/16 [Rx] Ondansetron HCl [Zofran] 4 mg PO Q6HR PRN #20 tablet 07/18/16 [Rx] Prochlorperazine Maleate [Compazine] 10 mg PO Q6HR PRN #30 tablet 07/18/16 [Rx] TraZODone 50 mg PO HS #30 tablet 07/18/16 [Rx] Oxycodone HCl 10 mg PO BID #60 tab 08/01/16 [Rx] Zolpidem [Ambien] 5 mg PO HS PRN #30 tablet 08/05/16 [Rx] Oxygen 4 l NS CONT 08/13/16 [History] Apixaban [Eliquis] 5 mg PO BID 08/20/16 [History] Allergies/Adverse Reactions: Allergies Bee Pollen Allergy (Verified 08/01/16 14:13) Anaphylaxis Penicillins Allergy (Verified 08/01/16 14:13) Hives Date of admission: 08/20/16 03:09 Primary care physician: PCP NO Consults: 08/20/16 02:05 Consult to Reinforcing Steel Worker [CONS] Routine Reason for SW Consult: Planning, further needs for family 08/20/16 02:26 Consult to Palliative Care [CONS] Routine Comment: Consulting Provider: Palliative Care Vanessa Discharging clinician: Donovan Mccormack Anticipated date of discharge: 08/20/16 - Patient Status Disposition: Hospice - Medical Facility Condition: Serious Functional capacity at discharge: bed bound Overall status at discharge: patient is not back to baseline - Discharge Instructions Follow Up With: NO,PCP [Primary Care Provider] - - Diet and Activity Diet: other (Patient on hospice and comfort care) Hospital course: Ms. Guzman is a 65 year old female patient with stage IV small cell lung cancer with malignant pleural effusion, Estrace's syndrome, SVC DVT, GERD, hyperlipidemia and diabetes who was admitted here as she was failing to thrive at home and was complaining of significant pain all over. She had expressed wishes to be on comfort care and had told multiple staff members that she was dying and was okay with that. Palliative care was consulted. Patient will now be discharged and then admitted to hospice for terminal care and comfort care. - Time Spent with Patient Total time spent providing and/or coordinating discharge services: Less than 30 minutes (20 min) - Constitutional Vitals: Temp Pulse Resp BP Pulse Ox 97.4 F L 123 10 77/59 93 08/20/16 02:06 08/20/16 02:06 08/20/16 02:06 08/20/16 02:06 08/20/16 02:06 Exam: Nonresponsive with open eyes and spontaneous eye movements. - Respiratory Respiratory exam: Present: prolonged expiratory phase, rhonchi. Absent: accessory muscle use, rales, wheezes Additional comments: Coarse breath sounds bilaterally - Cardiovascular Cardiovascular exam: Present: RRR, +S1, +S2. Absent: diastolic murmur, gallop, rubs, systolic murmur - Skin Skin exam: Present: dry, intact - VTE Reasons for not Prescribing Prophylaxis: Refused by patient - Attending Attestation This document has been at least partially created by [employer] recognition technology by Dr. Mccormack. Errors in grammar, wording or other phrases may exist. If errors are found after the documentation is signed, they will be addressed individually in the addendum section of this document when appropriate.
[2016-08-20 12:44] VITALS: BP 77/59
--- NOTE | 2016-08-20 19:08 | Electrocardiograph Report ---
[place] [id number] Test Date: 2016-08-19 Pat Name: Nova Guzman Department: 103 Room: 3B24 Gender: F Counter Tacker: JASON : 1950 Requested By: Domenico De Paz Order Number: [id number] Reading MD: Xi Davis Measurements Intervals [place] Rate: 126 P: 60 UT: 125 QRS: 67 QRSD: 90 T: 35 QT: 273 QTc: 347 Interpretive Statements SINUS TACHYCARDIA NONSPECIFIC T-WAVE ABNORMALITY ABNORMAL RHYTHM ECG Electronically Signed On 08-20-2016 19:06:24 EDT by Xi Davis
== END 2016-08-20 11:20 | disposition hospice, inpatient (51) | DRG 948 ==
LOC: 3BNU 21:21 → EMEROO 21:21 → 3BNU 08-20 01:09 → SUATTDRO 08-20 03:09
PROVIDERS: ADMIT Internal Medicine; ATTEND Internal Medicine

== ENCOUNTER 2016-08-20 10:53 | Inpatient (IN) ==
[2016-08-20] MEDS ORDERED: Atropine Sulfate 1% 40 DROP/2 ML BOTTLE SL PRN (11:42)
[2016-08-20] MEDS ORDERED: Bisacodyl 10 MG RECTAL SUPPOSITORY RC PRN (11:42)
[2016-08-20] MEDS ORDERED: *HR* Morphine 2 MG/ML SYRINGE IVP PRN ×2 (11:42→11:45)
[2016-08-20] MEDS ORDERED: *HR* LORazepam 2 MG/ML VIAL IVP PRN (11:42)
[2016-08-20] MEDS ORDERED: Haloperidol Lactate 5 MG/ML VIAL IVP PRN (11:42)
--- NOTE | 2016-08-20 11:46 | Palliative - Consult Note ---
Date of Encounter: 08/20/16 Time of Encounter: 11:42 - Assessment and Plan (1) Dyspnea Current Visit: Yes Status: Acute Assessment and plan: Supportive oxygen not to exceed 4 L/m, utilize morphine for uncontrolled symptoms, position for comfort, family and spiritual support at bedside. Qualifiers: Dyspnea type: unspecified Qualified Code(s): R06.00 - Dyspnea, unspecified (2) Goals of care, counseling/discussion Current Visit: Yes Status: Acute Assessment and plan: Ms. allen is now enrolled in general inpatient hospice care. She has required several doses of IV morphine to manage her symptoms of pain and shortness of breath. Given the rapid decline in health and current physical assessment, she is not expected to survive long. Would not recommend transfer out of the hospital given her extreme fragile state. Discussed plan of care with hospice and palliative team. (3) Terminal care Current Visit: Yes Status: Acute (4) Anxiety Current Visit: Yes Status: Chronic Assessment and plan: Lorazepam as needed for anxiety, spiritual support, family support at bedside. (5) Cancer associated pain Current Visit: No Status: Chronic Assessment and plan: Utilize IV morphine as needed with range of 2-4 mg for moderate to severe pain. Position for comfort, spiritual support. Patient has required multiple doses of morphine within a short period of time frame to manage her pain. Continue to monitor and adjust accordingly. (6) Pleural effusion Current Visit: No Status: Chronic Assessment and plan: Pleuryx catheter remains in place (7) Small cell lung cancer Current Visit: No Status: Chronic Qualifiers: Laterality: right Qualified Code(s): C34.91 - Malignant neoplasm of unspecified part of right bronchus or lung Palliative-CN HPI - Data of Consult Patient: known to practice within the last 3 years Consult date: 08/20/16 Requesting Physician: August Mason MD - Consult Narrative Palliative Care/Comfort Measures: Palliative care Reason for consult: Symptom management History of present illness: Ms. Guzman is a 65 year old female with a history of small cell lung cancer diagnosed in March 2016. Ms. Guzman self enrolled into [facility] hosp[facility] services on 08/18/2016. The following day, the patient developed pain crisis and ran out of her medications. During her time of distress, she asked her significant other to contact the emergency services stating "I am dying". Her significant other contacted hospice services, but her needs could not be met. At that time, she was transferred to [facility] by the emergency services for further care. While in the emergency department, the patient continued to support comfort care measures with no invasive procedures or diagnostics. She was treated with morphine for her pain crisis and transferred to inpatient status. The patient and family supported comfort care and will need aggressive symptom management. She has a right sided pleurX catheter for recurrent malignant effusions. Ms. Guzman also required the use of 8mg of IV morphine within a 4 hour window to manage her pain. Her dypsnea continues to require intervention. Her significant other reports overall decline in her health over the past 4 days. She has not had adequate oral intake and 4 days, with only sips of fluids. He denies fever, nausea, vomiting, constipation, diarrhea. Significant other reports sleeping all day, and so weak that she cannot stand on her own 2 feet. The palliative care team was consulted for symptom management and goals of care. CC: August Mason MD Past Med Surg Social Fam HX - Past Medical History Source: old records reviewed, obtained from family Medical history: arthritis, asthma, cancer (small cell lung CA), COPD, diabetes , GERD, hyperlipidemia, hypertension, other Psychiatric history: anxiety - Past Surgical History Surgical History: , hysterectomy - Social History Smoking Status: Former smoker Smokeless Tobacco Status: No Alcohol use: none Drug use: none - Family History Mother Adopted: No Family Member Ethnicity: Non- Living Status: Hx Family Cardiac Disorders: No Hx Family Respiratory Disorders: No Hx Family Cancer: No Hx Family GI Disorders: No Hx Family Endocrine Disorder: Yes (DM) Hx Family Neuromuscular Disorders: No Hx Family Neurologic Disorders: No Hx Family HEENT Disorders: No Hx Family Autoimmune Disorders: No Medications and Allergies Aspirin/Calcium Carbonate/Mag [Aspirin Buffered 325 mg Tab] 325 mg PO DAILY 01/25 [History] Potassium Chloride 20 meq PO DAILY #30 tab.er.prt 04/19/16 [Rx] Acetaminophen [Tylenol] 1,000 mg PO Q6HR PRN #120 tablet 05/03/16 [Rx] Ibuprofen [Motrin] 600 mg PO Q8HR PRN #90 tablet 05/03/16 [Rx] Albuterol Sulfate [Albuterol Inhaler] 2 puff IH Q4H PRN 05/19/16 [History] Dexamethasone [Decadron] 4 mg PO BID 05/23/16 [History] Docusate [Colace] 100 mg PO BID #100 capsule 05/23/16 [Rx] Nicotine Patch [Nicoderm] 14 mg TD DAILY #14 patch.td24 05/23/16 [Rx] Polyethylene Glycol 3350 [MiraLAX] 17 gm PO DAILY PRN #30 powd.pack 05/23/16 [Rx ] Sennosides [Senna] 17.2 mg PO BID #100 tablet 05/23/16 [Rx] Magic Mouthwash [Magic Mouthwash BLM] 10 ml PO QID PRN #240 ml 05/29/16 [Rx] Sertraline [Zoloft] 50 mg PO DAILY #30 tablet 06/27/16 [Rx] Bumetanide [Bumex] 0.5 mg PO DAILY #30 tablet 07/15/16 [Rx] LORazepam [Ativan] 1 mg PO BID PRN #60 tablet 07/18/16 [Rx] Lisinopril [Zestril] 10 mg PO DAILY #30 tablet 07/18/16 [Rx] Ondansetron HCl [Zofran] 4 mg PO Q6HR PRN #20 tablet 07/18/16 [Rx] Prochlorperazine Maleate [Compazine] 10 mg PO Q6HR PRN #30 tablet 07/18/16 [Rx] TraZODone 50 mg PO HS #30 tablet 07/18/16 [Rx] Oxycodone HCl 10 mg PO BID #60 tab 08/01/16 [Rx] Zolpidem [Ambien] 5 mg PO HS PRN #30 tablet 08/05/16 [Rx] Oxygen 4 l NS CONT 08/13/16 [History] Apixaban [Eliquis] 5 mg PO BID 08/20/16 [History] Allergies Bee Pollen Allergy (Verified 08/01/16 14:13) Anaphylaxis Penicillins Allergy (Verified 08/01/16 14:13) Hives ROS unobtainable: due to mental status Palliative Care-Exam - Constitutional Exam: 65 year old female appearing chronically ill, non-verbal and does not follow commands. - Eye Eye exam: Present: periorbital swelling (right eye). Absent: EOMI - ENT ENT exam: Present: mucous membranes dry - Respiratory Respiratory exam: Present: accessory muscle use, rales, respiratory distress ( mild), rhonchi, tachypnea Additional comments: right sided PleurX catheter in place - Expanded Respiratory Exam Location: rales: Left, Right, Lower, rhonchi: Left, Right, Upper - Cardiovascular Cardiovascular exam: Present: RRR. Absent: tachycardia - GI/Abdominal Exam GI/Abdominal exam: Present: diminished bowel sounds, soft. Absent: firm, tenderness - Rectal Rectal exam: Present: deferred - Catheter Type: Urethral ([place]) - Extremities Exam Extremities exam: Present: normal capillary refill (greater than 3 seconds), pedal edema - Expanded Upper Extremities Exam Hand wrist exam: Present: swelling - Neurological Exam Neurological exam: Absent: alert, strengths equal and symetr throughout (does not follow commands) - Skin Additional comments: cool/clammy, ashen in color Palliative Quality Palliative Quality: Screen for Code Status: Yes, Screen for Goals of Care: Yes, Screen for Pain: Yes, If Pain Regimen Started, Initiate Bowel Regimen: Yes, Screen for Nausea/Vomitting: Yes
[2016-08-20 13:21] VITALS: BP 126/35
--- NOTE | 2016-08-20 13:47 | Pallative History & Physical ---
Date of Encounter: 08/20/16 Time of Encounter: 11:50 Assessment and Plan (1) Difficulty breathing Current visit: No Status: Acute With medications patient's shortness of breath is much better continue oxygen continue breathing treatments continue medications for breathing. (2) Generalized pain Current visit: No Status: Acute Continue medication for pain as needed (3) Goals of care, counseling/discussion Current visit: No Status: Acute Patient is DNR CC, patient is in for Gen. inpatient care as the patient would be requiring continuous care due to the amount of pain the patient had last evening and tenuous care cannot be accomplished at home currently. She was brought in for Gen. inpatient for symptom management of pain. They need to monitor this daily. Internal Medicine - H&P: HPI Admitted From: Intrahospital Transfer Plans for Post Hospital Care: Hospice - Home History of present illness: Ms. Guzman is a 65 year old female The patient had been home with hospice care for age for lung cancer. She had run out of pain medication and a pain crisis last night. Apparently was miscommunication between hospice and the patient and vice versa opening and the patient revoking and coming into the emergency department. At this point the patient and family do not wish to have any further aggressive care to be in hospice for symptomatic management of cancer-related pain. The patient has stage IV lung cancer for which there is no further treatment available. 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 At this time the patient is comfortable. But has been complaining about pain in her chest. Plan to pain being generally all over. Past Med Surg Social Fam HX - Past Medical History Medical history: arthritis, asthma, cancer, COPD, diabetes, GERD, hyperlipidemia , hypertension, other Psychiatric history: anxiety - Past Surgical History Surgical History: , hysterectomy - Social History Smoking Status: Former smoker Smokeless Tobacco Status: No Alcohol use: none Drug use: none - Family History Mother Adopted: No Family Member Ethnicity: Non- Living Status: Hx Family Cardiac Disorders: No Hx Family Respiratory Disorders: No Hx Family Cancer: No Hx Family GI Disorders: No Hx Family Endocrine Disorder: Yes (DM) Hx Family Neuromuscular Disorders: No Hx Family Neurologic Disorders: No Hx Family HEENT Disorders: No Hx Family Autoimmune Disorders: No Internal Medicine - H&P: Meds Aspirin/Calcium Carbonate/Mag [Aspirin Buffered 325 mg Tab] 325 mg PO DAILY 01/25 [History] Potassium Chloride 20 meq PO DAILY #30 tab.er.prt 04/19/16 [Rx] Acetaminophen [Tylenol] 1,000 mg PO Q6HR PRN #120 tablet 05/03/16 [Rx] Ibuprofen [Motrin] 600 mg PO Q8HR PRN #90 tablet 05/03/16 [Rx] Albuterol Sulfate [Albuterol Inhaler] 2 puff IH Q4H PRN 05/19/16 [History] Dexamethasone [Decadron] 4 mg PO BID 05/23/16 [History] Docusate [Colace] 100 mg PO BID #100 capsule 05/23/16 [Rx] Nicotine Patch [Nicoderm] 14 mg TD DAILY #14 patch.td24 05/23/16 [Rx] Polyethylene Glycol 3350 [MiraLAX] 17 gm PO DAILY PRN #30 powd.pack 05/23/16 [Rx ] Sennosides [Senna] 17.2 mg PO BID #100 tablet 05/23/16 [Rx] Magic Mouthwash [Magic Mouthwash BLM] 10 ml PO QID PRN #240 ml 05/29/16 [Rx] Sertraline [Zoloft] 50 mg PO DAILY #30 tablet 06/27/16 [Rx] Bumetanide [Bumex] 0.5 mg PO DAILY #30 tablet 07/15/16 [Rx] LORazepam [Ativan] 1 mg PO BID PRN #60 tablet 07/18/16 [Rx] Lisinopril [Zestril] 10 mg PO DAILY #30 tablet 07/18/16 [Rx] Ondansetron HCl [Zofran] 4 mg PO Q6HR PRN #20 tablet 07/18/16 [Rx] Prochlorperazine Maleate [Compazine] 10 mg PO Q6HR PRN #30 tablet 07/18/16 [Rx] TraZODone 50 mg PO HS #30 tablet 07/18/16 [Rx] Oxycodone HCl 10 mg PO BID #60 tab 08/01/16 [Rx] Zolpidem [Ambien] 5 mg PO HS PRN #30 tablet 08/05/16 [Rx] Oxygen 4 l NS CONT 08/13/16 [History] Apixaban [Eliquis] 5 mg PO BID 08/20/16 [History] Allergies Bee Pollen Allergy (Verified 08/01/16 14:13) Anaphylaxis Penicillins Allergy (Verified 08/01/16 14:13) Hives ROS unobtainable: due to mental status Palliative Care-Exam - Constitutional Vitals: Temp Pulse Resp BP Pulse Ox 97.5 F L 41 22 126/35 94 08/20/16 12:30 08/20/16 12:30 08/20/16 12:30 08/20/16 12:30 08/20/16 12:00 General appearance: Present: no acute distress - Head Head Exam: Present: atraumatic, normal inspection - Eye Eye exam: Present: normal appearance - ENT ENT exam: Present: mucous membranes dry - Expanded ENT Exam Mouth Exam: Present: tongue hypertrophy - Neck Neck exam: Present: normal inspection - Respiratory Respiratory exam: Present: accessory muscle use, decreased breath sounds, rhonchi, tachypnea - Cardiovascular Cardiovascular exam: Present: bradycardia - GI/Abdominal Exam GI/Abdominal exam: Present: diminished bowel sounds, soft - Extremities Exam Extremities exam: Absent: pedal edema, tenderness - Expanded Upper Extremities Exam Vascular: Present: brachial pulse - Neurological Exam Neurological exam: Present: altered - Psychiatric Psychiatric exam: Absent: agitated, anxious - Skin Skin exam: Present: dry. Absent: warm (Cool) Palliative Quality Palliative Quality: Screen for Code Status: Yes, Screen for Goals of Care: Yes, Screen for Pain: Yes, If Pain Regimen Started, Initiate Bowel Regimen: Yes, Screen for Nausea/Vomitting: Yes Code Status: 08/20/16 11:42 Resuscitation Status: Active [RES] Routine Comment: Resuscitation Status: DNR-Comfort Care
--- NOTE | 2016-08-20 13:57 | Event Note ---
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 Start: 08/20/2016 Hospice benefit. In: +90 days Palliative performance scale: 20 percent History: With a history of stage IV lung cancer for which there is no further acid therapy available. Patient wishes to have comfort care only and to be kept comfortable her last days. Therefore I find These findings support a life expectancy of 6 months or less. I attest that I have compose the above narrative based on my review of the patient's medical records, and or on my examination of the patient. August Mason M.D. Associate hospital medical assistant. [facility]
--- NOTE | 2016-08-21 08:37 | Death Note ---
Discharge Sum: Summary - Date and Time Date of admission: 08/20/16 12:12 Date of : 08/20/16 Time of : 17:28 - Summary Details: pt on gip service for 1 day with pain well controlled passed with family in attendence cod lung cancer months co morbitidites asthma copd dm htn pt was a smoker - Additional Data Confirmation of as documented by pronouncing clinician: no pulse, no respirations, no heart sounds Family: at bedside Attending/PCP notified?: Yes Attending physician: August Mason MD Was code activated?: No Autopsy requested?: No silk examiner notified?: No Organ bank notified?: Yes Advance directives: Yes Hospice patient?: Yes Discharge Sum: Diag - PCOD Probable Cause of : Respiratory arrest Discharge Sum: Prov - Provider Primary care physician: PCP NO Consults: 08/20/16 11:42 Consult to Palliative Care [CONS] Routine Comment: Consulting Provider: Palliative Care Vanessa
== END 2016-08-20 17:30 | disposition expired | DRG 182 ==
LOC: 2ANU 12:12
PROVIDERS: ADMIT Family Medicine Hospice and Palliative Medicine; ATTEND Family Medicine Hospice and Palliative Medicine